=== PATIENT | male | born 1970 | race Caucasian/White ===

== ENCOUNTER 2021-05-18 17:40 | Day surgery (SDC) | payer MEDICAID, OTHER ==
[~2021-05-18] VITALS: Ht 172.7 cm; Wt 78.0 kg
--- NOTE | 2021-05-18 18:40 | ED GI ---
General Chief Complaint: Abdominal/GI Problems Stated Complaint: L SIDE PAIN Nursing Triage Note: AMB TO ROOM WITH C/O ABD PAIN R LOWER QUAD HAD HERNIA SURG 16 YEARS AGO IS HAVING PAIN AND AREA WARM TO TOUCH Source of Information: Patient Exam Limitations: No Limitations History of Present Illness Date Seen by Provider: May 18, 2021 Time Seen by Provider: 18:39 Initial Comments To ER with right lower abdominal discomfort and swelling for the past few days. History of inguinal hernia repair with mesh 16 years ago. He has been taking Tylenol and ibuprofen without much relief. Timing/Duration: 3-4 Days Severity/Quality: Moderate Location: RLQ Radiation: No Radiation Activities at Onset: None Associated Symptoms: Denies Symptoms Allergies and Home Medications Allergies Coded Allergies: No Known Drug Allergies (Unverified , 05/18/21) Patient Home Medication List Home Medication List Reviewed: Yes Review of Systems Review of Systems Constitutional: see HPI EENTM: No Symptoms Reported Respiratory: No Symptoms Reported Cardiovascular: No Symptoms Reported Gastrointestinal: See HPI, Abdominal Pain Musculoskeletal: no symptoms reported Skin: no symptoms reported Psychiatric/Neurological: No Symptoms Reported Endocrine: No Symptoms Reported Hematologic/Lymphatic: No Symptoms Reported Physical Exam Vital Signs Vital Signs - First Documented 05/18/21 18:06 Temp 37.4 Pulse 107 Resp 18 B/P (MAP) 136/100 (112) Pulse Ox 95 O2 Delivery Room Air Capillary Refill : Less Than 3 Seconds Height/Weight/BMI Height: '" Weight: lbs. oz. kg; 26.00 BMI Method: General Appearance: WD/WN, no apparent distress HEENT: PERRL/EOMI, normal ENT inspection Respiratory: no respiratory distress, no accessory muscle use Gastrointestinal: normal bowel sounds, soft, tenderness (There is a right inguinal bulge with tenderness to palpation. Bowel movements and passing gas as per his normal without nausea vomiting.) Extremities: normal range of motion, non-tender Neurologic/Psychiatric: alert, normal mood/affect, oriented x 3 Skin: normal color, warm/dry Progress/Results/Core Measures Results/Orders Lab Results Laboratory Tests Test 05/18/21 18:13 05/18/21 19:10 Range/Units White Blood Count 11.7 H 4.3-11.0 10^3/uL Red Blood Count 5.41 4.30-5.52 10^6/uL Hemoglobin 16.8 13.3-17.7 g/dL Hematocrit 51 40-54 % Mean Corpuscular Volume 95 80-99 fL Mean Corpuscular Hemoglobin 31 25-34 pg Mean Corpuscular Hemoglobin Concent 33 32-36 g/dL Red Cell Distribution Width 12.9 10.0-14.5 % Platelet Count 225 130-400 10^3/uL Mean Platelet Volume 11.1 9.0-12.2 fL Immature Granulocyte % (Auto) 0 % Neutrophils (%) (Auto) 74 42-75 % Lymphocytes (%) (Auto) 14 12-44 % Monocytes (%) (Auto) 11 0-12 % Eosinophils (%) (Auto) 1 0-10 % Basophils (%) (Auto) 0 0-10 % Neutrophils # (Auto) 8.7 H 1.8-7.8 10^3/uL Lymphocytes # (Auto) 1.6 1.0-4.0 10^3/uL Monocytes # (Auto) 1.3 H 0.0-1.0 10^3/uL Eosinophils # (Auto) 0.1 0.0-0.3 10^3/uL Basophils # (Auto) 0.0 0.0-0.1 10^3/uL Immature Granulocyte # (Auto) 0.0 0.0-0.1 10^3/uL Sodium Level 139 135-145 MMOL/L Potassium Level 4.1 3.6-5.0 MMOL/L Chloride Level 103 98-107 MMOL/L Carbon Dioxide Level 25 21-32 MMOL/L Anion Gap 11 5-14 MMOL/L Blood Urea Nitrogen 11 7-18 MG/DL Creatinine 0.99 0.60-1.30 MG/DL Estimat Glomerular Filtration Rate 81 BUN/Creatinine Ratio 11 Glucose Level 123 H 70-105 MG/DL Calcium Level 8.9 8.5-10.1 MG/DL Corrected Calcium 9.1 8.5-10.1 MG/DL Total Bilirubin 0.5 0.1-1.0 MG/DL Aspartate Amino Transf (AST/SGOT) 13 5-34 U/L Alanine Aminotransferase (ALT/SGPT) 17 0-55 U/L Alkaline Phosphatase 79 40-136 U/L Total Protein 6.9 6.4-8.2 GM/DL Albumin 3.7 3.2-4.5 GM/DL Urine Color YELLOW Urine Clarity SL CLOUDY Urine pH 6.5 5-9 Urine Specific [place] 1.025 H 1.016-1.022 Urine Protein NEGATIVE NEGATIVE Urine Glucose (UA) NEGATIVE NEGATIVE Urine Ketones NEGATIVE NEGATIVE Urine Nitrite NEGATIVE NEGATIVE Urine Bilirubin NEGATIVE NEGATIVE Urine Urobilinogen 4.0 < = 1.0 MG/DL Urine Leukocyte Esterase NEGATIVE NEGATIVE Urine RBC (Auto) NEGATIVE NEGATIVE Urine RBC NONE /HPF Urine WBC NONE /HPF Urine Squamous Epithelial Cells NONE /HPF Urine Renal Epithelial Cells NONE /HPF Urine Crystals NONE /LPF Urine Bacteria FEW H /HPF Urine Casts NONE /LPF Urine Mucus NEGATIVE /LPF Urine Culture Indicated NO My Orders Orders - SU DIALLO APRN Cbc With Automated Diff (05/18/21 18:37) Comprehensive Metabolic Panel (05/18/21 18:37) Ua Culture If Indicated (05/18/21 18:37) Ct Abdomen/Pelvis Wo (05/18/21 18:37) Lorazepam Injection (Ativan Injection) (05/18/21 20:30) Piperacillin Sodium/Tazobactam (Zosyn Vi (05/18/21 21:30) Medications Given in ED Current Medications Medications Dose Ordered Sig/Ezequiel Route Start Time Stop Time Status Last Admin Dose Admin Lorazepam 0.5 mg ONCE PRN IVP 05/18/21 20:30 05/18/21 20:29 0.5 MG Vital Signs/I&O 05/18/21 18:06 Temp 37.4 Pulse 107 Resp 18 B/P (MAP) 136/100 (112) Pulse Ox 95 O2 Delivery Room Air Blood Pressure Mean: 112 Departure Communication (Admissions) Family Conversation I spoke with Dr. Humphries, patient will go to the operating room tonight at about 10. NAME: ZOE [facility]ALL [facility] REC#: [id number] PT STATUS: REG ER : 1970 PHYSICIAN: SU DIALLO APRN ADMIT DATE: 05/18/21/ER Draft Date of Exam:05/18/21 CT ABDOMEN/PELVIS WO PROCEDURE: CT abdomen and pelvis without contrast. TECHNIQUE: Multiple contiguous axial images were obtained through the abdomen and pelvis without the use of intravenous contrast. Auto Exposure Controls were utilized during the CT exam to meet ALARA standards for radiation dose reduction. DATE: April 18, 2021. COMPARISON: None. INDICATION: 50-year-old male, right lower quadrant abdominal pain. History of hernia. FINDINGS: There are limitations for evaluation of the abdominal organs, neoplastic processes, abscess, and limited evaluation of the vasculature relating to the lack of intravenous contrast. There are mild linear opacities in the lingula likely reflecting atelectasis. The heart is not enlarged. There is no identified pericardial effusion. The liver is unremarkable in size and contour. The gallbladder is contracted. There is no biliary ductal dilation. The main pancreatic duct is not abnormally dilated. Unremarkable appearance of the pancreatic parenchyma. There are accessory splenules. The spleen is not enlarged. The adrenal glands are unremarkable. Unremarkable appearance of the renal parenchyma. The urinary collecting systems are not distended. There is no identified renal or ureteral stone. The intestinal tract is not distended. The appendix is well-seen and its proximal aspect on axial image 57 and adjacent sequential images. The appendix extends towards the right lower anterior abdominal wall. There is abnormal inflammatory stranding as well as a gas containing fluid collection at this location measuring 3.6 x 2.7 cm in axial dimension on axial image 63. This is contacting the right lateral rectus abdominis musculature. There is no free intraperitoneal air. There is no additional identified drainable fluid collection. There is stranding in the right inguinal region. There is no free pelvic fluid. There are atherosclerotic calcifications. There is no identified abnormally enlarged lymph node in the abdomen or pelvis meeting CT size criteria for adenopathy. There is no identified acute bony abnormality. IMPRESSION: CT ABDOMEN AND PELVIS. 1. Gas containing fluid collection which is centered near the tip of the appendix and right lateral rectus abdominis muscle measuring 3.6 x 2.7 cm in size most likely reflecting an abscess. The more proximal aspect of the appendix is normal in appearance; however, the appendix extends directly to this area of abnormality and acute appendicitis cannot be excluded. There is also abnormal stranding in the right inguinal region. 2. No additional identified acute abnormality in the abdomen or pelvis. Dictated on workstation # [id number] Dict: 05/18/211910 Trans: 05/18/211954 [facility] [id number] Interpreted by: GERI AGUIRRE MD Electronically signed by: Impression Primary Impression: Appendicitis Disposition: ADMITTED INPATIENT Condition: Stable Admissions Decision to Admit Reason: Admit from ER (General) Decision to Admit/Date: May 18, 2021 Time/Decision to Admit Time: 21:24 Departure-Patient Inst. Referrals: NO,LOCAL PHYSICIAN (PCP/Family) Primary Care Physician SU DIALLO APRN May 18, 2021 18:40
[2021-05-18 19:08] LABS: BASOPHILS % (AUTO) 0 % (0-10); EOSINOPHILS # (AUTO) 0.1 10^3/uL (0.0-0.3); EOSINOPHILS % (AUTO) 1 % (0-10); HEMATOCRIT 51 % (40-54); HEMOGLOBIN 16.8 g/dL (13.3-17.7); LYMPHOCYTES # (AUTO) 1.6 10^3/uL (1.0-4.0); LYMPHOCYTES % (AUTO) 14 % (12-44); MEAN CORPUSCULAR HEMOGLOBIN 31 pg (25-34); MEAN CORPUSCULAR HGB CONC 33 g/dL (32-36); MEAN CORPUSCULAR VOLUME 95 fL (80-99); MEAN PLATELET VOLUME 11.1 fL (9.0-12.2); MONOCYTES # (AUTO) 1.3 10^3/uL (0.0-1.0); MONOCYTES % (AUTO) 11 % (0-12); NEUTROPHILS # (AUTO) 8.7 10^3/uL (1.8-7.8); NEUTROPHILS % (AUTO) 74 % (42-75); PLATELET COUNT 225 10^3/uL (130-400); WHITE BLOOD COUNT 11.7 10^3/uL (4.3-11.0)
[2021-05-18 19:19] LABS: BILIRUBIN,URINE NEGATIVE (NEGATIVE); CLARITY,URINE SL CLOUDY; COLOR,URINE YELLOW; GLUCOSE, URINE (UA) NEGATIVE (NEGATIVE); KETONES,URINE NEGATIVE (NEGATIVE); LEUKOCYTE ESTERASE ,URINE NEGATIVE (NEGATIVE); NITRITE,URINE NEGATIVE (NEGATIVE); PH,URINE 6.5 (5-9); PROTEIN,URINE NEGATIVE (NEGATIVE)
[2021-05-18 19:22] LABS: ALBUMIN 3.7 GM/DL (3.2-4.5); POTASSIUM 4.1 MMOL/L (3.6-5.0)
[2021-05-18 19:23] LABS: CALCIUM 8.9 MG/DL (8.5-10.1)
[2021-05-18 19:25] LABS: TOTAL PROTEIN 6.9 GM/DL (6.4-8.2)
[2021-05-18 19:26] LABS: BILIRUBIN,TOTAL 0.5 MG/DL (0.1-1.0)
[2021-05-18 19:28] LABS: CREATININE SERUM 0.99 MG/DL (0.60-1.30)
[2021-05-18 19:30] LABS: BACTERIA,URINE FEW /HPF
--- NOTE | 2021-05-18 19:56 | Diagnostic Imaging Report ---
PROCEDURE: CT abdomen and pelvis without contrast. TECHNIQUE: Multiple contiguous axial images were obtained through the abdomen and pelvis without the use of intravenous contrast. Auto Exposure Controls were utilized during the CT exam to meet ALARA standards for radiation dose reduction. DATE: April 18, 2021. COMPARISON: None. INDICATION: 50-year-old male, right lower quadrant abdominal pain. History of hernia. FINDINGS: There are limitations for evaluation of the abdominal organs, neoplastic processes, abscess, and limited evaluation of the vasculature relating to the lack of intravenous contrast. There are mild linear opacities in the lingula likely reflecting atelectasis. The heart is not enlarged. There is no identified pericardial effusion. The liver is unremarkable in size and contour. The gallbladder is contracted. There is no biliary ductal dilation. The main pancreatic duct is not abnormally dilated. Unremarkable appearance of the pancreatic parenchyma. There are accessory splenules. The spleen is not enlarged. The adrenal glands are unremarkable. Unremarkable appearance of the renal parenchyma. The urinary collecting systems are not distended. There is no identified renal or ureteral stone. The intestinal tract is not distended. The appendix is well-seen and its proximal aspect on axial image 57 and adjacent sequential images. The appendix extends towards the right lower anterior abdominal wall. There is abnormal inflammatory stranding as well as a gas containing fluid collection at this location measuring 3.6 x 2.7 cm in axial dimension on axial image 63. This is contacting the right lateral rectus abdominis musculature. There is no free intraperitoneal air. There is no additional identified drainable fluid collection. There is stranding in the right inguinal region. There is no free pelvic fluid. There are atherosclerotic calcifications. There is no identified abnormally enlarged lymph node in the abdomen or pelvis meeting CT size criteria for adenopathy. There is no identified acute bony abnormality. IMPRESSION: CT ABDOMEN AND PELVIS. 1. Gas containing fluid collection which is centered near the tip of the appendix and right lateral rectus abdominis muscle measuring 3.6 x 2.7 cm in size most likely reflecting an abscess. The more proximal aspect of the appendix is normal in appearance; however, the appendix extends directly to this area of abnormality and acute appendicitis cannot be excluded. There is also abnormal stranding in the right inguinal region. 2. No additional identified acute abnormality in the abdomen or pelvis. Dictated by: Dictated on workstation # [id number]
[2021-05-18] MEDS ORDERED: LORazepam INJ 2 MG/ML (ATIVAN) VIAL IVP PRN (20:30)
[2021-05-18] MEDS ORDERED: PIPERACILLIN SODIUM/TAZOBACTAM 4.5 GM in NS (IVPB) 100 ML IV ONE (21:30)
[2021-05-18] MEDS ORDERED: LIDOCAINE/EPI 1%-1:100,000 (XYLOCAINE) 20ML ONE (21:46)
[2021-05-18] MEDS ORDERED: MIDAZOLAM 2 MG/2 ML (VERSED) VIAL ONE ×2 (21:49→23:58)
[2021-05-18] MEDS ORDERED: fentaNYL INJ 100 MCG/2 ML AMP ONE ×2 (21:49→23:19)
[2021-05-18] MEDS: LACTATED RINGERS 1,000 ML IV PRN ×2 (22:06→22:40)
--- NOTE | 2021-05-18 22:22 | History & Physical-Surgical ---
History of Present Illness History of Present Illness Reason for visit/HPI Surgery asked to consult regarding RLQ pain and appendicitis. HPI per ED: To ER with right lower abdominal discomfort and swelling for the past few days. History of inguinal hernia repair with mesh 16 years ago. He has been taking Tylenol and ibuprofen without much relief. Timing/Duration: 3-4 Days Severity/Quality: Moderate Location: RLQ Radiation: No Radiation Activities at Onset: None When I spoke to pt he stated that he may have had pain in the same area but "never this bad". Rated it as a 10 out of 10 when I saw, only helped by pain meds. He was in wheelchair and bumping it hurt in the RLQ. Denied N/V but did have some decreased appetite. Date of Admission 05/18/21 Date Seen by a Provider: May 18, 2021 Time Seen by a Provider: 10:01 I consulted on this patient on 05/18/21 22:16 Attending Physician Marcio Humphries DO Admitting Physician No,Local Physician Consult Allergies and Home Medications Allergies Coded Allergies: No Known Drug Allergies (Unverified , 05/18/21) Patient Home Medication List Home Medication List Reviewed: Yes Past Oogoxic-Jyebjd-Dhimlq Hx Patient Social History Smoking Status: Current Everyday Smoker (smoked for 30 yrs) Cigarettes Per Day: 20 Type Used: Cigarettes Alcohol Use?: Yes Have you traveled recently?: No Surgeries History of Surgeries: Yes Surgeries: Abdominal (right inguinal hernia) Respiratory History of Respiratory Disorde: No Cardiovascular History of Cardiac Disorders: No Neurological History of Neurological Disord: No Genitourinary History of Genitourinary Disor: No Gastrointestinal Gastrointestinal Disorders: Gastroesophageal Reflux Musculoskeletal History of Musculoskeletal Dis: No Endocrine History of Endocrine Disorders: No HEENT History of HEENT Disorders: No Loss of Vision: Denies Hearing Impairment: Denies Cancer History of Cancer: No Psychosocial History of Psychiatric Problem: No Integumentary History of Skin or Integumenta: No Family Medical History Significant Family History: Heart Disease (Father of [place] at 50), Stroke (mother at 50) Review of Systems Constitutional: No diaphoresis, No dizziness; malaise, weakness EENTM: No blurred vision, No double vision, No mouth pain, No epistaxis Respiratory: No cough, No dyspnea on exertion, No hemoptysis Cardiovascular: No chest pain, No palpitations Gastrointestinal: abdominal pain (RLQ), loss of appetite; No nausea, No vomiting Genitourinary: No dysuria, No frequency, No hematuria Musculoskeletal: joint pain, joint swelling, muscle stiffness Skin: No change in color, No change in hair/nails Psychiatric/Neurological: Denies Anxiety, Denies Depressed, Denies Seizure, Denies Tremors Physical Exam Vital Signs Vital Signs - First Documented 05/18/21 18:06 Temp 37.4 Pulse 107 Resp 18 B/P (MAP) 136/100 (112) Pulse Ox 95 O2 Delivery Room Air Capillary Refill : Less Than 3 Seconds Height, Weight, BMI Height: '" Weight: lbs. oz. kg; 26.00 BMI Method: General Appearance: WD/WN, Mild Distress Eyes: Bilateral Eye PERRL, Bilateral Eye EOMI HEENT: Pharynx Normal, Moist Mucous Membranes, Other (poor dentition) Neck: Non Tender, Supple Respiratory: Lungs Clear, Normal Breath Sounds, No Accessory Muscle Use, No Respiratory Distress Cardiovascular: Regular Rate, Rhythm, No Murmur Gastrointestinal: Soft, Guarding, Tenderness Rectal: Deferred Back: No CVA Tenderness, No Vertebral Tenderness Extremity: No Calf Tenderness, No Pedal Edema Neurologic/Psychiatric: Alert, Oriented x3, No Motor/Sensory Deficits, Normal Mood/Affect, histologist II-XII Norm as Tested Skin: Normal Color, Warm/Dry Lymphatic: No Adenopathy (neck, axilla or groin) Data Review Labs Laboratory Tests 05/18/21 18:13: White Blood Count 11.7H, Red Blood Count 5.41, Hemoglobin 16.8, Hematocrit 51, Mean Corpuscular Volume 95, Mean Corpuscular Hemoglobin 31, Mean Corpuscular Hemoglobin Concent 33, Red Cell Distribution Width 12.9, Platelet Count 225, Mean Platelet Volume 11.1, Immature Granulocyte % (Auto) 0, Neutrophils (%) (Auto) 74, Lymphocytes (%) (Auto) 14, Monocytes (%) (Auto) 11, Eosinophils (%) (Auto) 1, Basophils (%) (Auto) 0, Neutrophils # (Auto) 8.7H, Lymphocytes # (Auto) 1.6, Monocytes # (Auto) 1.3H, Eosinophils # (Auto) 0.1, Basophils # (Auto) 0.0, Immature Granulocyte # (Auto) 0.0, Sodium Level 139, Potassium Level 4.1, Chloride Level 103, Carbon Dioxide Level 25, Anion Gap 11, Blood Urea Nitrogen 11, Creatinine 0.99, Estimat Glomerular Filtration Rate 81, BUN/Creatinine Ratio 11, Glucose Level 123H, Calcium Level 8.9, Corrected Calcium 9.1, Total Bilirubin 0.5, Aspartate Amino Transf (AST/SGOT) 13, Alanine Aminotransferase (ALT/SGPT) 17, Alkaline Phosphatase 79, Total Protein 6.9, Albumin 3.7 05/18/21 19:10: Urine Color YELLOW, Urine Clarity SL CLOUDY, Urine pH 6.5, Urine Specific [place] 1.025H, Urine Protein NEGATIVE, Urine Glucose (UA) NEGATIVE, Urine Ketones NEGATIVE, Urine Nitrite NEGATIVE, Urine Bilirubin NEGATIVE, Urine Urobilinogen 4.0, Urine Leukocyte Esterase NEGATIVE, Urine RBC (Auto) NEGATIVE, Urine RBC NONE, Urine WBC NONE, Urine Squamous Epithelial Cells NONE, Urine Renal Epithelial Cells NONE, Urine Crystals NONE, Urine Bacteria FEWH, Urine Casts NONE, Urine Mucus NEGATIVE, Urine Culture Indicated NO Radiology Date of Exam:05/18/21 CT ABDOMEN/PELVIS WO PROCEDURE: CT abdomen and pelvis without contrast. TECHNIQUE: Multiple contiguous axial images were obtained through the abdomen and pelvis without the use of intravenous contrast. Auto Exposure Controls were utilized during the CT exam to meet ALARA standards for radiation dose reduction. DATE: April 18, 2021. COMPARISON: None. INDICATION: 50-year-old male, right lower quadrant abdominal pain. History of hernia. FINDINGS: There are limitations for evaluation of the abdominal organs, neoplastic processes, abscess, and limited evaluation of the vasculature relating to the lack of intravenous contrast. There are mild linear opacities in the lingula likely reflecting atelectasis. The heart is not enlarged. There is no identified pericardial effusion. The liver is unremarkable in size and contour. The gallbladder is contracted. There is no biliary ductal dilation. The main pancreatic duct is not abnormally dilated. Unremarkable appearance of the pancreatic parenchyma. There are accessory splenules. The spleen is not enlarged. The adrenal glands are unremarkable. Unremarkable appearance of the renal parenchyma. The urinary collecting systems are not distended. There is no identified renal or ureteral stone. The intestinal tract is not distended. The appendix is well-seen and its proximal aspect on axial image 57 and adjacent sequential images. The appendix extends towards the right lower anterior abdominal wall. There is abnormal inflammatory stranding as well as a gas containing fluid collection at this location measuring 3.6 x 2.7 cm in axial dimension on axial image 63. This is contacting the right lateral rectus abdominis musculature. There is no free intraperitoneal air. There is no additional identified drainable fluid collection. There is stranding in the right inguinal region. There is no free pelvic fluid. There are atherosclerotic calcifications. There is no identified abnormally enlarged lymph node in the abdomen or pelvis meeting CT size criteria for adenopathy. There is no identified acute bony abnormality. IMPRESSION: CT ABDOMEN AND PELVIS. 1. Gas containing fluid collection which is centered near the tip of the appendix and right lateral rectus abdominis muscle measuring 3.6 x 2.7 cm in size most likely reflecting an abscess. The more proximal aspect of the appendix is normal in appearance; however, the appendix extends directly to this area of abnormality and acute appendicitis cannot be excluded. There is also abnormal stranding in the right inguinal region. 2. No additional identified acute abnormality in the abdomen or pelvis. Dictated by: Dictated on workstation # [id number] Dict: 05/18/211910 Trans: 05/18/212138 Assessment/Plan Assessment/Plan Admission Diagonsis RLQ pain with abscess, most likely appendicitis Admission Status: Observation Assessment/Plan RLQ pain with abscess, most likely appendicitis Pt is getting IV ABX, IV fluids, pain meds, anti-emetics as needed and needs to go emergently to the OR. Most likely for a laparoscopic appendectomy; discussed risks and complication not limited to pain, bleeding, infection, scar, damage to bowel and need for further procedure. I also told him he may need a drain placed and left in, to be removed later. I reviewed the CT myself and my other concern is this could be a mesh infection that just happens to include the appendix; it appears that bowel is not involved, but won't know until we get in and look. All questions answered to his satisfaction; if everything goes well he can go home tomorrow, just depends on what we find. MARCIO HUMPHRIES DO May 18, 2021 22:22
[2021-05-18] MEDS ORDERED: morphine INJ 10 MG/ML 1ML (SYR OR VIAL) ONE (22:54)
[2021-05-18] MEDS ORDERED: ROCURONIUM 10 MG/ML 5 ML SYRINGE IV ONE (22:55)
[2021-05-18] MEDS ORDERED: SUCCINYLCHOLINE INJ 100 MG/5 ML SYR/VIAL ONE (22:55)
[2021-05-18] MEDS ORDERED: SEVOFLURANE (ULTANE) 15 ML INHAL SOLN ONE ×2 (22:55→23:35)
[2021-05-18] MEDS ORDERED: GLYCOPYRROLATE 0.2 MG/ML (ROBINUL) 2 ML VIAL ONE (22:55)
[2021-05-18] MEDS ORDERED: LIDOCAINE PF 2% 5 ML (XYLOCAINE) VIAL ONE (22:55)
[2021-05-18] MEDS ORDERED: proPOfol 200 MG/20 ML (DIPRIVAN) VIAL IV ONE (22:55)
[2021-05-18] MEDS ORDERED: NEOSTIGMINE 3 MG/3 ML VIAL ONE (22:55)
[2021-05-18] MEDS ORDERED: ONDANSETRON 4 MG/2 ML (SDV) Z0FRAN ONE (22:55)
[2021-05-18] MEDS ORDERED: morphine INJ 10 MG/ML 1ML (SYR OR VIAL) IVP STA (23:33)
[2021-05-18 23:34] VITALS: BP 122/95
--- NOTE | 2021-05-18 23:38 | Progress Note-Post Operative ---
Post-Operative Progess Note Surgeon (s)/Raise Drill Operator (s) Surgeon ANDREA RODRIGUEZ DO Raise Drill Operator: none Pre-Operative Diagnosis RLQ pain with abscess, R/O appy Post-Operative Diagnosis Acute appy Infected mesh with indirect inguinal hernia Procedure & Operative Findings Date of Procedure 05/18/21 Procedure Performed/Findings 1) Lap Appy 2) Removal of infected mesh Anesthesia Type GET Estimated Blood Loss Estimated blood loss (mL): less than 5ml Specimens/Packing Specimens Removed appy,portion of mesh ANDREA RODRIGUEZ DO May 18, 2021 23:38
[2021-05-18] MEDS ORDERED: HYDROcodone/APAP 5 MG/325 MG (LORTAB) TAB PO PRN (23:45)
[2021-05-18] MEDS ORDERED: ONDANSETRON 4 MG/2 ML (SDV) Z0FRAN IVP PRN (23:45)
[2021-05-18 23:50] VITALS: BP 173/108
[2021-05-18 23:56] VITALS: BP 148/85
[2021-05-19] VITALS (11 sets, daily range): BP systolic 100–146; BP diastolic 71–88
[2021-05-19] MEDS: LACTATED RINGERS 1,000 ML IV PRN (00:10)
[2021-05-19] MEDS ORDERED: fentaNYL INJ 100 MCG/2 ML AMP IVP ONE (00:30)
[2021-05-19] MEDS ORDERED: ONDANSETRON 4 MG/2 ML (SDV) Z0FRAN IVP PRN (00:30)
[2021-05-19] MEDS ORDERED: morphine INJ 10 MG/ML 1ML (SYR OR VIAL) IVP ONE (00:30)
[2021-05-19 00:43] LABS: AMPHETAMINE SCREEN, URINE NEGATIVE (NEGATIVE); BARBITURATE SCREEN URINE NEGATIVE (NEGATIVE); BENZODIAZEPINES SCREEN URINE NEGATIVE (NEGATIVE); CANNABINOID SCREEN, URINE NEGATIVE (NEGATIVE); COCAINE SCREEN URINE NEGATIVE (NEGATIVE); METHADONE STAT NEGATIVE (NEGATIVE); METHAMPHETAMINE SCREEN URINE S NEGATIVE (NEGATIVE); OPIATE SCREEN URINE NEGATIVE (NEGATIVE); OXYCODONE STAT NEGATIVE (NEGATIVE); PROPOXYPHENE STAT NEGATIVE (NEGATIVE); TRICYCLIC ANTIDEPRESSANTS SCRE NEGATIVE (NEGATIVE)
[2021-05-19] MEDS: LACTATED RINGERS 1,000 ML IV SCH ×2 (00:48→08:45)
[2021-05-19] MEDS ORDERED: HALOPERIDOL 5 MG/ML (HALDOL) VIAL IM/IV PRN (01:00)
[2021-05-19] MEDS ORDERED: LORazepam INJ 2 MG/ML (ATIVAN) VIAL IVP PRN (01:00)
[2021-05-19] MEDS ORDERED: diphenhydrAMINE 50 MG/ML INJ (BENADRYL) IVP PRN (01:00)
[2021-05-19] MEDS ORDERED: fentaNYL INJ 100 MCG/2 ML AMP ONE (01:42)
[2021-05-19] MEDS ORDERED: fentaNYL INJ 100 MCG/2 ML AMP IVP PRN (02:00)
--- NOTE | 2021-05-19 04:15 | Anesthesia-General Post-Op ---
General Patient Condition Mental Status/LOC: Same as Preop Cardiovascular: Satisfactory Nausea/Vomiting: Absent Respiratory: Satisfactory Pain: Controlled Complications: Absent Post Op Complications Complications None Follow Up Care/Instructions Patient Instructions None needed. Anesthesia/Patient Condition Patient Condition Patient is doing well, no complaints, stable vital signs, no apparent adverse anesthesia problems. No complications reported per nursing. TY CASTRO CRNA May 19, 2021 04:15
[2021-05-19] MEDS ORDERED: PIPERACILLIN/TAZOBACTAM (BULK) 4.5 GM in NS (IVPB) 100 ML IV SCH (06:00)
[2021-05-19] MEDS ORDERED: PANTOPRAZOLE 40 MG (PROTONIX) VIAL IVP SCH (09:00)
--- NOTE | 2021-05-19 12:52 | Progress Note - Surgery ---
Subjective Time Seen by a Provider: 11:31 Subjective/Events-last exam Pt seen and examined, states pain controlled and asking to go home. Review of Systems Pulmonary: No Dyspnea, No Cough Cardiovascular: No: Chest Pain, Palpitations Gastrointestinal: Abdominal Pain; No: Nausea, Vomiting Objective Exam Vital Signs Date Time Temp Pulse Resp B/P (MAP) Pulse Ox O2 Delivery O2 Flow Rate FiO2 05/19/21 12:33 36.8 94 17 127/85 (99) 95 Nasal Cannula 6.00 05/19/21 09:00 95 Nasal Cannula 6.00 05/19/21 08:00 92 18 104/72 (83) 92 Nasal Cannula 6.00 05/19/21 04:00 37.3 114 18 100/71 (81) 90 OxyMask 6.00 05/19/21 02:00 112 18 116/81 (93) 93 OxyMask 6.00 05/19/21 01:17 94 OxyMask 6.00 05/19/21 01:00 122 19 105/80 (88) 94 OxyMask 6.00 05/19/21 00:40 36.9 122 21 110/77 (88) 93 OxyMask 6.00 05/19/21 00:40 36.9 20 110/77 (88) 93 OxyMask 6 05/19/21 00:40 OxyMask 6 05/19/21 00:30 22 112/75 (87) 93 OxyMask 6 05/19/21 00:25 OxyMask 6 05/19/21 00:20 22 119/79 (92) 93 OxyMask 6 05/19/21 00:10 OxyMask 8 05/19/21 00:10 22 146/88 (107) 93 OxyMask 8 05/19/21 00:00 22 136/84 (101) 93 OxyMask 8 05/18/21 23:56 22 148/85 (106) 94 OxyMask 8 05/18/21 23:55 OxyMask 8 05/18/21 23:50 22 173/108 (129) 94 OxyMask 8 05/18/21 23:34 OxyMask 6 05/18/21 23:34 36.8 18 122/95 (104) 94 OxyMask 8 05/18/21 21:55 36.9 109 18 113/84 (112) 96 Room Air 05/18/21 18:06 37.4 107 18 136/100 (112) 95 Room Air I & O 05/19/21 07:00 Intake Total 2100 ml Output Total 175 ml Balance 1925 ml Capillary Refill : Less Than 3 Seconds General Appearance: No Apparent Distress, WD/WN HEENT: Pharynx Normal, Moist Mucous Membranes, Other (poor dentition) Respiratory: Lungs Clear, Normal Breath Sounds, No Accessory Muscle Use, No Respiratory Distress Cardiovascular: Regular Rate, Rhythm, No Murmur Gastrointestinal: normal bowel sounds, soft, tenderness (There is a right inguinal bulge with tenderness to palpation. Bowel movements and passing gas as per his normal without nausea vomiting.) Results Lab Laboratory Tests 05/18/21 18:13: White Blood Count 11.7H, Red Blood Count 5.41, Hemoglobin 16.8, Hematocrit 51, Mean Corpuscular Volume 95, Mean Corpuscular Hemoglobin 31, Mean Corpuscular Hemoglobin Concent 33, Red Cell Distribution Width 12.9, Platelet Count 225, Mean Platelet Volume 11.1, Immature Granulocyte % (Auto) 0, Neutrophils (%) (Auto) 74, Lymphocytes (%) (Auto) 14, Monocytes (%) (Auto) 11, Eosinophils (%) (Auto) 1, Basophils (%) (Auto) 0, Neutrophils # (Auto) 8.7H, Lymphocytes # (Auto) 1.6, Monocytes # (Auto) 1.3H, Eosinophils # (Auto) 0.1, Basophils # (Auto) 0.0, Immature Granulocyte # (Auto) 0.0, Sodium Level 139, Potassium Level 4.1, Chloride Level 103, Carbon Dioxide Level 25, Anion Gap 11, Blood Urea Nitrogen 11, Creatinine 0.99, Estimat Glomerular Filtration Rate 81, BUN/Creatinine Ratio 11, Glucose Level 123H, Calcium Level 8.9, Corrected Calcium 9.1, Total Bilirubin 0.5, Aspartate Amino Transf (AST/SGOT) 13, Alanine Aminotransferase (ALT/SGPT) 17, Alkaline Phosphatase 79, Total Protein 6.9, Albumin 3.7 05/18/21 19:10: Urine Color YELLOW, Urine Clarity SL CLOUDY, Urine pH 6.5, Urine Specific [place] 1.025H, Urine Protein NEGATIVE, Urine Glucose (UA) NEGATIVE, Urine Ketones NEGATIVE, Urine Nitrite NEGATIVE, Urine Bilirubin NEGATIVE, Urine Urobilinogen 4.0, Urine Leukocyte Esterase NEGATIVE, Urine RBC (Auto) NEGATIVE, Urine RBC NONE, Urine WBC NONE, Urine Squamous Epithelial Cells NONE, Urine Renal Epithelial Cells NONE, Urine Crystals NONE, Urine Bacteria FEWH, Urine Casts NONE, Urine Mucus NEGATIVE, Urine Culture Indicated NO, Urine Opiates Screen NEGATIVE, Urine Oxycodone Screen NEGATIVE, Urine Methadone Screen NEGATIVE, Urine Propoxyphene Screen NEGATIVE, Urine Barbiturates Screen NEGATIVE, Ur Tricyclic Antidepressants Screen NEGATIVE, Urine Phencyclidine Screen NEGATIVE, Urine Amphetamines Screen NEGATIVE, Urine Methamphetamines Screen NEGATIVE, Urine Benzodiazepines Screen NEGATIVE, Urine Cocaine Screen NEGATIVE, Urine Cannabinoids Screen NEGATIVE Assessment/Plan Assessment/Plan Assessment/Plan S/P Lap appy and removal of infected mesh D/C IV and D/C home ANDREA RODRIGUEZ DO May 19, 2021 12:52
[2021-05-19] MEDS ORDERED: ACHD5005 PO (12:55)
--- NOTE | 2021-05-19 12:56 | Discharge Inst-Surgical ---
Discharge Inst-Surgical Depart Medication/Instructions New, Converted or Re-Newed RX: Transmitted to Pharmacy Patient Instructions Follow up Appt: Make appointment for 1 week. [phone] Instructions: No lifting greater than 20 pounds. No strenuous activity. May shower in 24 hours, no tub bath or soaking. Use incentive spirometer at home as directed. No Smoking Skin/Wound Care: May remove bandages in am. You need to leave the Dermabond on incision it will fall off on it's own. Symptoms to Report: Appetite Changes, Extremity Discoloration, Numbness/Tingling, Swelling Increased, Bleeding Excessive, Eyesight Changes, Pain Increased, Urine Color Change, Constipation(Persistent), Fever over 101 degree F, Pain/Pressure in chest, Urinating Difficulty, Cough Up/Vomit Blood, Heart Beat Irreg/Pounding, Pain/Pressure in jaw, Cramps in feet or legs, Lightheadedness, Pain/Pressure in shoulder, Diarrhea(Persistent), Memory Changes Suddenly, Questions/Concerns, Weight gain consecutive days, Dizziness/Fainting, Nausea/Vomiting, Shortness of Breath, Weight gain over 2 pounds If questions or concerns contact your physician Or seek help at emergency department. Activity Activity as Tolerated: Yes Activity Instructions: Avoid Stress to Incision Driving Instructions: No Driving/Refer to Dr. Castro Discharge Diet: No Restrictions Diet After 24 Hours: Clear Liquid if Nauseous If Any Problems/Questions/Issu: Contact Your Physician, Go to Emergency Room Skin/Wound Care Infection Signs and Symptoms: Increased Redness, Foul Odor of Wound, Increased Drainage, Skin Itchy or Has a Rash, Increased Swelling, Temperature Above 101 F Bathing Instructions: Shower Stitches/[place]/Dermabond Dis: ANDREA Hart DO May 19, 2021 12:56
--- NOTE | 2021-05-19 15:07 | OPERATIVE REPORT ---
DATE OF SERVICE: 05/18/2021 PREOPERATIVE DIAGNOSIS: Right lower quadrant pain with abscess, rule out appendicitis. POSTOPERATIVE DIAGNOSES: 1. Acute appendicitis. 2. Infected mesh with indirect inguinal hernia. PROCEDURES: 1. Laparoscopic appendectomy. 2. Removal of infected mesh. SURGEON: Marcio Humphries DO BAKING ASSISTANT: None. ANESTHESIA: General endotracheal tube. SPECIMEN: Appendix and portion of the infected mesh. BLOOD LOSS: Less than 5 mL. FLUIDS: Per anesthesia. POSTOPERATIVE CONDITION: Stable. INDICATION FOR PROCEDURE: The patient is a 50-year-old male who has pain in the right lower quadrant. He has been having pain off and on for years, thought it was just his hernia. This time, the pain got worse than it has ever been and he had bulging and tenderness and warmth in the right lower quadrant. CAT scan showed abscess touching the rectus muscle, appeared to be appendix in communication with the abscess. FINDINGS: The patient had appendix stuck up and an indirect inguinal hernia and there was some infected mesh, may have been from appendicitis, could not really tell. PROCEDURE NOTE: After informed consent was obtained, the patient was brought to the operating room, placed on the operating table in supine position. He was sterilely prepped and draped in normal fashion. Local lidocaine was used to infiltrate the skin above the umbilicus and made an incision with 11 blade, carried down through the skin and subcutaneous tissue, then deepened down to subcutaneous tissue with Bovie electrocautery down to the fascia. Fascia was incised with Bovie electrocautery and bluntly entered the abdomen, swept a finger around, placed 0 Vicryl [id number] suture, then placed a limited trocar port under direct visualization. Created pneumoperitoneum and then placed 2 more ports, one in the suprapubic area and one in the left lower quadrant. The patient was then placed in Trendelenburg and rotated slightly left. There was a bulge in the right inguinal region and able to identify appendix going into an indirect inguinal hernia, started trying to take this bulging area down, coming across above the inguinal canal in the preperitoneal tissue, coming through this and then I am able to get into and got a little bit of purulent fluid out, this was suctioned up, came across and I then went down back to the appendix and it was away from the terminal ileum and started coming across the mesoappendix with the LigaSure, clamping, coagulating and transecting and in this fashion, freeing up the appendix. It was just attached to the cecum, then switched camera to a 5 mm camera, placed Endo-JOSE RAFAEL through the supraumbilical port and clamped across the base of appendix, clamped and fired, thereby transecting the appendix. Then, used L-hook cautery as well as the LigaSure to start freeing up going through this indirect inguinal hernia through the inguinal canal, opening up above it to go through the mesh to be able to take this mesh out and be able to remove the appendix. Once we were able to get through some of this mesh, able to get to the distal portion of the appendix and then removed this, removed another portion of the mesh, could see the indirect inguinal hernia. Copiously irrigated here with a liter and a half of warm normal saline. There was no more purulent fluid. There was some mesh leftover, suctioned out all the fluid and then placed a bag into the abdomen, placed the appendix, portion of the mesh and some fat into the bag and then removed through supraumbilical port. Elected to place a Surgicel to kind of cover the mesh down in the right lower quadrant, suctioned out all the fluid and then placed the patient supine and watched the cecum come down to cover this area. There was no bleeding at the end of the case. There was no purulent fluid. I had copiously irrigated until there was clear and elected to not leave a drain and then at this point, I removed all ports under direct visualization, allowed pneumoperitoneum to escape, closed supraumbilical incision with 0 Vicryl suture previously placed. Copiously irrigated all incisions with normal saline and closed the 2 small 5 mm incisions with a single interrupted 4-0 undyed Monocryl subcuticular stitch, closed supraumbilical incision with 3 interrupted 4-0 undyed Monocryl subcuticular stitches. Area was cleaned and dried and Dermabond placed as well as Band-Aids. The patient tolerated the procedure. Sponge, instrument and needle count correct at the end of the case. Job ID: [id number] DocumentID: [id number] Dictated Date: 05/18/2021 23:43:52 Eyeglass Lens Cutter Date: 05/19/2021 05:38:44 Dictated By: MARCIO HUMPHRIES DO
[2021-05-19] MEDS ORDERED: ENOXAPARIN 40 MG/0.4 ML (LOVENOX) SYR SC SCH (21:00)
== END 2021-05-19 14:25 | disposition home or self-care (01) ==
LOC: ER 17:43 → SDC 21:24 → CSD 05-19 00:40 → SDC 05-19 14:25
PROVIDERS: ATTEND Surgery
DX: K35.80 Unspecified acute appendicitis (principal); T85.79XA Infection and inflammatory reaction due to other internal prosthetic devices, implants and grafts, initial encounter; K40.90 Unilateral inguinal hernia, without obstruction or gangrene, not specified as recurrent; K21.9 Gastro-esophageal reflux disease without esophagitis; F17.210 Nicotine dependence, cigarettes, uncomplicated
CPT/HCPCS: 36415; 74176; 80053; 80306; 81000; 85025; 88304; 94664; 96365; 96375

== ENCOUNTER 2021-05-24 18:51 | Emergency (ER) | payer MEDICAID ==
[~2021-05-24 18:51] MED LIST: ACHD5005 PO
[2021-05-26] MEDS ORDERED: AMOX-358 PO (15:01)
== END 2021-05-24 20:52 | disposition other institution (70) ==
LOC: EDUNIT# 18:51 → ER 18:55
DX: R13.10 Dysphagia, unspecified (principal); R53.1 Weakness; R53.83 Other fatigue; R19.7 Diarrhea, unspecified
CPT/HCPCS: 87636

== ENCOUNTER 2021-05-25 10:51 | Inpatient (IN) | payer MEDICAID ==
[~2021-05-25] VITALS: Ht 167.6 cm; Wt 71.0 kg
[~2021-05-25 10:51] MED LIST changes: -ACET-2267 PO; -AMOX-358 PO
[2021-05-25 12:39] VITALS: BP 139/58
[2021-05-25 15:25] VITALS: BP 129/66
[2021-05-25 15:30] VITALS: BP 110/78
[2021-05-25] MEDS ORDERED: IOHEXOL 350 MG/ML 100 ML (OMNIPAQUE 350) VIAL IV ONE (15:45)
[2021-05-25] MEDS ORDERED: morphine INJ 4 MG/ML 1 ML (VIAL/SYRINGE) IVP PRN (15:45)
[2021-05-25] MEDS ORDERED: NS 100 ML (IVPB) BAG IV ONE (15:45)
[2021-05-25] MEDS ORDERED: CATHETER FLUSH 10 ML SYR IV PRN (15:45)
[2021-05-25] MEDS ORDERED: ONDANSETRON 4 MG/2 ML (SDV) Z0FRAN IVP PRN (15:45)
[2021-05-25] MEDS ORDERED: HOLD METFORMIN - RECEIVED CONTRAST 20 ML VIAL IV SCH (15:45)
--- NOTE | 2021-05-25 16:03 | Consultation - Surgery ---
JESSICAZOE HAZEL 05/25/21 1603: History of Present Illness History of Present Illness Patient Consulted On(raegan/time) 05/25/21 16:23 Date Seen by Provider: May 25, 2021 Time Seen by Provider: 16:23 History of Present Illness Zoe is a 50 yo m that presents with lower abdominal pain and GI distress following an appy last Tuesday. He localizes pain to the RLQ and describes pain as constant 6/10. He also complains of no appetite, nausea vomiting, diarrhea and foul smelling urine as well as pain with urination. He does not take any pain medication, and does not like the sideffects of analgesics. He also notes that he quit smoking last Tuesday, and has a newly acquired aversion to smoking as well as hyperosmia. He is currently resting in bed c [facility]. Allergies and Home Medications Allergies Coded Allergies: No Known Drug Allergies (Unverified , 05/18/21) Home Medications Acetaminophen 500 Mg Tablet, 1,000 MG PO Q8H PRN for PAIN-MILD (1-4), (Reported) Last Action: Reviewed Amoxicillin/Potassium Clav 1 Each Tablet, 1 EACH PO BID Prescribed by: ANDREA RODRIGUEZ on 05/26/21 1501 Hydrocodone/Acetaminophen 1 Each Tablet, 1 MG PO Q8H PRN for PAIN-MODERATE (5- 7), (Reported) Last Action: Reviewed Past Mwzkvyq-Ttmjfd-Kuricz Hx Patient Social History Smoking Status: Former Smoker (aversion to smoking since appy) Cigarettes Per Day: 1 Former Smoker, Quit: May 18, 2021 Type Used: Cigarettes Recent Hopitalizations: Yes (hernia 16yrs ago, knee replacement 28yrs ago) Alcohol Use?: Yes Substance type: Caffeine (2L Dr. Rapp per day) Have you traveled recently?: No Immunizations Up To Date Tetanus Booster (TDap): Unknown Seasonal Allergies Seasonal Allergies: No Surgeries History of Surgeries: Yes Surgeries: Abdominal, Appendectomy (may 18 2021), Joint Replacement (both knees 28 yrs ago) Respiratory History of Respiratory Disorde: No Cardiovascular History of Cardiac Disorders: No Neurological History of Neurological Disord: No Genitourinary History of Genitourinary Disor: No Genitourinary Disorders: Kidney Stones (3x all passed without intervention) Gastrointestinal Gastrointestinal Disorders: Gastroesophageal Reflux (managed with petpto bismol) Musculoskeletal History of Musculoskeletal Dis: No Endocrine History of Endocrine Disorders: No HEENT History of HEENT Disorders: No Loss of Vision: Denies Hearing Impairment: Denies Cancer History of Cancer: Yes Cancer: Thyroid (right side thyroidectomy about 5yrs old) Psychosocial History of Psychiatric Problem: No Behavioral Health Disorders: Anxiety Integumentary History of Skin or Integumenta: No Family Medical History Significant Family History: Heart Disease (Dad [place] at 50), Cancer (Grandmother, gastric cancer), Diabetes (Grandmother), Stroke (Mom at 50) Review of Systems-General Constitutional: chills, fever, weight loss (10lbs loss since appy on Tuesday) Respiratory: cough, phlegm Gastrointestinal: RLQ, abdominal pain (RLQ), diarrhea, loss of appetite, nausea, vomiting Genitourinary: decreased output, dysuria, pain Psychiatric/Neurological: Anxiety, Other (Hyperosmia since quit smoking last week) Physical Exam-General Problems Physical Exam Vital Signs Vital Signs - First Documented 05/25/21 12:39 Temp 35.7 Pulse 117 Resp 20 B/P (MAP) 139/58 (85) Pulse Ox 96 O2 Delivery Room Air Capillary Refill : General Appearance: no apparent distress Eyes: Bilateral Eye PERRL, Bilateral Eye EOMI HEENT: PERRL/EOMI, pharynx normal; No scleral icterus (R), No scleral icterus (L), No photophobia, No pharyngeal erythema Neck: non-tender, full range of motion, supple; No lymphadenopathy (R), No lymphadenopathy (L) Respiratory: chest non-tender, lungs clear, normal breath sounds, no respirat ory distress Cardiovascular: regular rate, rhythm, no gallop, no JVD, no murmur; No JVD Peripheral Pulses: 2+ Radial Pulses (R), 2+ Radial Pulses (L) Gastrointestinal: normal bowel sounds; No abnormal bowel sounds, No distended; guarding, tenderness Rectal: deferred Back: no CVA tenderness; No CVA tenderness (R), No CVA tenderness (L) Extremities: no pedal edema, no calf tenderness Neurologic/Psychiatric: family day care provider II-XII nml as tested, alert, normal mood/affect, oriented x 3 Skin: normal color, warm/dry Lymphatic: no adenopathy Assessment/Plan Assessment/Plan Assessment/Plan Lower abdominal pain and dysuria Plan - U/A, CXR, CBC, CT ANDREA RODRIGUEZ DO 05/26/21 1538: History of Present Illness History of Present Illness Time Seen by Provider: 15:41 History of Present Illness Pt had appendectomy about one week ago, was doing ok and then started "not feeling right". He thinks he may have had a temp at home and has felt weak off and on. Allergies and Home Medications Allergies Coded Allergies: No Known Drug Allergies (Unverified , 05/18/21) Home Medications Acetaminophen 500 Mg Tablet, 1,000 MG PO Q8H PRN for PAIN-MILD (1-4), (Reported) Last Action: Reviewed Amoxicillin/Potassium Clav 1 Each Tablet, 1 EACH PO BID Prescribed by: ANDREA RODRIGUEZ on 05/26/21 1501 Hydrocodone/Acetaminophen 1 Each Tablet, 1 MG PO Q8H PRN for PAIN-MODERATE (5- 7), (Reported) Last Action: Reviewed Patient Home Medication List Home Medication List Reviewed: Yes Past [place]-Knlmhx-Uceqgk Hx Patient Social History Smoking Status: Former Smoker (aversion to smoking since appy) Recent Hopitalizations: Yes (hernia 16yrs ago, knee replacement 28yrs ago) Surgeries History of Surgeries: Yes Surgeries: Abdominal, Appendectomy (may 18 2021), Joint Replacement (both knees 28 yrs ago) Respiratory History of Respiratory Disorde: No Cardiovascular History of Cardiac Disorders: No Neurological History of Neurological Disord: No Genitourinary History of Genitourinary Disor: Yes Genitourinary Disorders: Kidney Stones (3x all passed without intervention) Gastrointestinal History of Gastrointestinal Di: Yes Gastrointestinal Disorders: Abdominal Hernia, Gastroesophageal Reflux (managed with petpto bismol) Musculoskeletal History of Musculoskeletal Dis: No Endocrine History of Endocrine Disorders: No HEENT History of HEENT Disorders: No Cancer History of Cancer: Yes Cancer: Thyroid (right side thyroidectomy about 5yrs old) Psychosocial History of Psychiatric Problem: Yes Behavioral Health Disorders: Anxiety Family Medical History Significant Family History: Heart Disease (Dad [place] at 50), Cancer (Grandmother, gastric cancer), Diabetes (Grandmother), Stroke (Mom at 50) Review of Systems-General Constitutional: chills, fever, malaise, weight loss (10lbs loss since appy on Tuesday) EENTM: No blurred vision, No double vision, No epistaxis Respiratory: cough, phlegm Cardiovascular: No chest pain, No palpitations Gastrointestinal: RLQ, abdominal pain (RLQ), diarrhea, loss of appetite, nausea, vomiting Genitourinary: decreased output, dysuria, pain, other (foul smell and "different color") Musculoskeletal: No muscle pain, No muscle stiffness Skin: No change in color, No change in hair/nails Psychiatric/Neurological: Anxiety; Denies Seizure; Other (Hyperosmia since quit smoking last week) Physical Exam-General Problems Physical Exam General Appearance: WD/WN, no apparent distress Eyes: Bilateral Eye PERRL, Bilateral Eye EOMI HEENT: pharynx normal; No scleral icterus (R), No scleral icterus (L), No photophobia Neck: non-tender, supple; No lymphadenopathy (R), No lymphadenopathy (L) Respiratory: chest non-tender, lungs clear, normal breath sounds, no respiratory distress Cardiovascular: regular rate, rhythm, no murmur Gastrointestinal: normal bowel sounds; No distended; guarding (voluntary in RLQ), tenderness, other (no erythema, incisions c/d/i) Rectal: deferred Back: no CVA tenderness, no vertebral tenderness Extremities: normal range of motion, no pedal edema, no calf tenderness Neurologic/Psychiatric: family day care provider II-XII nml as tested, alert, normal mood/affect, oriented x 3 Skin: normal color, warm/dry Lymphatic: no adenopathy (neck, axilla or groin) Assessment/Plan Assessment/Plan Assessment/Plan RLQ pain Malaise Dysuria Pt had recent surgery, has now developed some increasing symptoms of fever, chills, malaise. He will need work-up for Lungs, UTI, and abdomen; ordered CT abd/pelvis, UA, CXR. He had labs which showed WBC of 26k. Will start on IV ABX, pain control, IV fluids and anti-emetics as needed. Supervisory-Addendum Brief Verification & Attestation Participated in pt care: history, MDM, physical Personally performed: exam, history, MDM, supervision of care Care discussed with: Medical Student Procedures: n/a Verification and Attestation of Medical Student E/M Service A medical student performed and documented this service. I then reviewed and verified all information documented by the medical student and made modifications to such information, when appropriate. I personally performed a physical exam, medical decision making and then discussed any differences betwee n the notes and made revisions as necessary to create one note. Andrea Rodriguez , 05/26/21 , 15:38 ZOE SANON May 25, 2021 16:03 ANDREA RODRIGUEZ DO May 26, 2021 15:38
[2021-05-25] MEDS: LACTATED RINGERS 1,000 ML IV SCH (17:00)
[2021-05-25] MEDS ORDERED: PIPERACILLIN/TAZO 4.5 GM/NS 100 ML IV NR ×2 (17:00)
[2021-05-25 17:17] LABS: BILIRUBIN,URINE NEGATIVE (NEGATIVE); CLARITY,URINE TURBID; COLOR,URINE YELLOW; GLUCOSE, URINE (UA) NEGATIVE (NEGATIVE); KETONES,URINE TRACE (NEGATIVE); LEUKOCYTE ESTERASE ,URINE 2+ (NEGATIVE); NITRITE,URINE NEGATIVE (NEGATIVE); PROTEIN,URINE 3+ (NEGATIVE)
[2021-05-25 18:09] LABS: BACTERIA,URINE LARGE /HPF; WBC,URINE >100 /HPF
--- NOTE | 2021-05-25 19:04 | Diagnostic Imaging Report ---
INDICATION: Postoperative complications from an appendectomy one week ago. Patient is having a cough. FINDINGS: Frontal view of the chest demonstrates minimal atelectasis in the left lung base. The heart size and vascularity are normal. There are no pleural effusions. IMPRESSION: There is minimal atelectasis in the left lung base. Dictated by: Dictated on workstation # [id number]
--- NOTE | 2021-05-25 19:09 | Diagnostic Imaging Report ---
PROCEDURE: CT abdomen and pelvis with contrast. TECHNIQUE: Multiple contiguous axial images were obtained through the abdomen and pelvis after administration of intravenous contrast. Auto Exposure Controls were utilized during the CT exam to meet ALARA standards for radiation dose reduction. All CT scans use one or more of the following dose optimizing techniques: automated exposure control, MA and/or KvP adjustment based on patient size and exam type or iterative reconstruction. INDICATION: Abdominal pain and leukocytosis. Postoperative complications from an appendectomy one week ago. Previous appendectomy, hernia repair, unsure of cancer from childhood. COMPARISON STUDY: CT abdomen and pelvis from May 18. FINDINGS: Emphysematous changes are again seen in the lung bases. No pleural effusions are present. The liver, gallbladder, spleen, pancreas and adrenal glands are normal. Contrast in the kidneys prohibits visualization of kidney stones but no previous stones were seen. Kidneys appear normal. Urinary bladder and prostate gland are normal. There is some thickening of the small bowel loops in the left upper quadrant and some of the distal duodenum. A few air-fluid levels and mild dilatation are present. In the right lower abdominal wall there is an air collection measuring up to almost 2 cm with a thick wall. No fluid is seen within this. Within the right lower quadrant peritoneal cavity there is an air-fluid level and a loculated collection measuring 4.5 x 2.7 cm. Adjacent bowel loops are thickened. IMPRESSION: There is an air collection in the abdominal wall in the right lower quadrant. There is also an adjacent peritoneal abscess. An associated ileus is present. Dictated by: Dictated on workstation # [id number]
[2021-05-25 19:44] VITALS: BP 116/71
[2021-05-25] MEDS: PIPERACILLIN/TAZOBACTAM (BULK) 4.5 GM in NS (IVPB) 100 ML IV SCH (23:34)
[2021-05-25 23:58] VITALS: BP 102/66
[2021-05-26] MEDS: LACTATED RINGERS 1,000 ML IV SCH ×3 (00:43→09:43)
[2021-05-26 03:43] VITALS: BP 105/68
[2021-05-26 05:34] LABS: BASOPHILS % (AUTO) 0 % (0-10); EOSINOPHILS # (AUTO) 0.1 10^3/uL (0.0-0.3); EOSINOPHILS % (AUTO) 0 % (0-10); HEMATOCRIT 43 % (40-54); HEMOGLOBIN 14.4 g/dL (13.3-17.7); LYMPHOCYTES # (AUTO) 1.5 10^3/uL (1.0-4.0); LYMPHOCYTES % (AUTO) 10 % (12-44); MEAN CORPUSCULAR HEMOGLOBIN 31 pg (25-34); MEAN CORPUSCULAR HGB CONC 34 g/dL (32-36); MEAN CORPUSCULAR VOLUME 92 fL (80-99); MEAN PLATELET VOLUME 11.2 fL (9.0-12.2); MONOCYTES # (AUTO) 1.3 10^3/uL (0.0-1.0); MONOCYTES % (AUTO) 8 % (0-12); NEUTROPHILS # (AUTO) 12.2 10^3/uL (1.8-7.8); NEUTROPHILS % (AUTO) 80 % (42-75); PLATELET COUNT 267 10^3/uL (130-400); WHITE BLOOD COUNT 15.2 10^3/uL (4.3-11.0)
[2021-05-26 05:47] LABS: ALBUMIN 2.8 GM/DL (3.2-4.5); POTASSIUM 3.7 MMOL/L (3.6-5.0)
[2021-05-26 05:49] LABS: CALCIUM 8.1 MG/DL (8.5-10.1)
[2021-05-26 05:52] LABS: BILIRUBIN,TOTAL 0.6 MG/DL (0.1-1.0)
[2021-05-26 05:54] LABS: CREATININE SERUM 0.88 MG/DL (0.60-1.30)
[2021-05-26] MEDS: PIPERACILLIN/TAZOBACTAM (BULK) 4.5 GM in NS (IVPB) 100 ML IV SCH ×2 (06:35→14:49)
[2021-05-26 08:00] VITALS: BP 117/72
--- NOTE | 2021-05-26 08:46 | History & Physical ---
History of Present Illness History of Present Illness Reason for visit/HPI Abdirizak is a 50 yo m that presents with lower abdominal pain and GI distress following an appy last Tuesday. He localizes pain to the RLQ and describes pain as constant 10. He also complains of no appetite, nausea vomiting, diarrhea and foul smelling urine as well as pain with urination. He does not take any pain medication, and does not like the sideffects of analgesics. He also notes that he quit smoking last Tuesday, and has a newly acquired aversion to smoking as well as hyperosmia. He is currently resting in bed c NAD. Date of Admission May 25, 2021 at 12:40 Time Seen by a Provider: 08:01 I consulted on this patient on 05/26/21 08:01 Abdirizak is feeling much better today - able to urinate without significant pain on toilet 11/02 from 04/02 yesterday bottom turning lathe tender and guarding in RLQ Is willing to go home if there are no other significant issues related to his recent appy. Attending Physician Marcio Humphries DO Admitting Physician [facility] Consult Allergies and Home Medications Allergies Coded Allergies: No Known Drug Allergies (Unverified , 05/18/21) Home Medications Acetaminophen 500 Mg Tablet, 1,000 MG PO Q8H PRN for PAIN-MILD (1-4), (Reported) Last Action: Reviewed Hydrocodone/Acetaminophen 1 Each Tablet, 1 MG PO Q8H PRN for PAIN-MODERATE (5- 7), (Reported) Last Action: Reviewed Past Izxjvfh-Tsnktg-Cuflil Hx Patient Social History Tobacco Use?: No Smoking Status: Former Smoker (aversion to smoking since appy) Use of E-Cig and/or Vaping dev: No Substance use?: No Substance type: Caffeine (2L Dr. Pepper per day) Alcohol Use?: Yes Additional alcohol type: SCOTCH Alcohol Frequency: Rarely Pt feels they are or have been: No Immunizations Up To Date First/Initial COVID19 Vaccinat: NONE Second COVID19 Vaccination Bronson: NONE Tetanus Booster (TDap): Unknown Hepatitis A: No Hepatitis B: No Seasonal Allergies Seasonal Allergies: No Current Status Advance Directives: No Communicates: Verbally Primary Language: Belgian Preferred Spoken Language: Belgian Is interpretation needed?: No Implanted or Applied Medical D: None Past Medical History Surgeries: Abdominal, Appendectomy (may 18 2021), Joint Replacement (both knees 28 yrs ago) Kidney Stones (3x all passed without intervention) Gastroesophageal Reflux (managed with petpto bismol) Loss of Vision: Denies Hearing Impairment: Denies Thyroid (right side thyroidectomy about 5yrs old) Anxiety Family Medical History Heart Disease (Dad [place] at 50), Cancer (Grandmother, gastric cancer), Diabetes (Grandmother), Stroke (Mom at 50) Review of Systems Constitutional: no symptoms reported EENTM: no symptoms reported Respiratory: no symptoms reported Cardiovascular: no symptoms reported Gastrointestinal: RLQ, abdominal pain (RLQ) Genitourinary: dysuria (Still has mild pain on urination) Musculoskeletal: no symptoms reported Skin: no symptoms reported Psychiatric/Neurological: No Symptoms Reported Physical Exam Vital Signs Vital Signs - First Documented 05/25/21 12:39 Temp 35.7 Pulse 117 Resp 20 B/P (MAP) 139/58 (85) Pulse Ox 96 O2 Delivery Room Air Capillary Refill : Height, Weight, BMI Height: '" Weight: lbs. oz. kg; 25.27 BMI Method: General Appearance: No Apparent Distress Eyes: Bilateral Eye PERRL, Bilateral Eye EOMI HEENT: PERRL/EOMI, Pharynx Normal; No Scleral Icterus (L), No Scleral Icterus (R) Neck: Full Range of Motion, Non Tender, Supple Respiratory: Lungs Clear, Normal Breath Sounds, No Respiratory Distress Neurologic/Psychiatric: Alert, Oriented x3, account processor II-XII Norm as Tested Reflexes: 2+ Bicep (R), 2+ Bicep (L), 2+ Tricep (R), 2+ Tricep (L) Skin: Normal Color, Warm/Dry Lymphatic: No Adenopathy Assessment/Plan Assessment and Plan Recovering from UTI Plan - Repeat CBC & U/A, review CT Consider discharge ABDIRIZAK SANON May 26, 2021 08:46
[2021-05-26] MEDS ORDERED: PANTOPRAZOLE 40 MG (PROTONIX) VIAL IV SCH (09:00)
[2021-05-26] MEDS ORDERED: ACET-2267 PO (10:03)
[2021-05-26] MEDS ORDERED: ACHD5005 PO (10:03)
[2021-05-26 11:51] VITALS: BP 108/71
--- NOTE | 2021-05-26 12:01 | Progress Note - Surgery ---
HETAVIAZOE HAZEL 05/26/21 1201: Subjective Date Seen by a Provider: May 26, 2021 Time Seen by a Provider: 08:01 Subjective/Events-last exam Zoe is feeling much better today - able to urinate without significant pain on toilet 11/02 from 04/02 yesterday shearing machine tender and guarding in RLQ Review of Systems General: No Chills, No Night Sweats, No Fatigue, No Malaise HEENT: No Head Aches, No Eye Pain, No Ear Pain, No Dysphasia, No Sinus Congestion, No Post Nasal Drip, No Sore Throat Pulmonary: No Dyspnea, No Cough, No Pleuritic Chest Pain Cardiovascular: No: Chest Pain, Palpitations, Orthopnea, Paroxysmal Noc. Dyspnea, Edema, Lt Headedness Gastrointestinal: Abdominal Pain (RLQ - same since appy) Genitourinary: Dysuria (Very much improved since yesterday 11/02) Musculoskeletal: No: other, neck pain, shoulder pain, arm pain, back pain, hand pain, leg pain, foot pain Neurological: No: Weakness, Numbness, Incoordination, Change in speech, Confusion, Seizures, Other Focused Exam Respiratory: Lungs Clear, Normal Breath Sounds, No Accessory Muscle Use, No Respiratory Distress Cardiovascular: Regular Rate, Rhythm, No Edema, No Gallop, No JVD, No Murmur Peripheral Pulses: 2+ Radial Pulses (R), 2+ Radial Pulses (L) Skin: normal color, warm/dry Objective Exam Vital Signs Date Time Temp Pulse Resp B/P (MAP) Pulse Ox O2 Delivery O2 Flow Rate FiO2 05/26/21 11:51 36.0 78 18 108/71 (83) 98 Room Air 05/26/21 08:00 36.1 95 20 117/72 (87) 94 Room Air 05/26/21 03:43 36.0 92 18 105/68 (80) 95 Room Air 05/25/21 23:58 36.4 104 20 102/66 (78) 92 Room Air 05/25/21 20:45 99 Room Air 05/25/21 19:44 36.5 103 20 116/71 (86) 95 Room Air 05/25/21 15:30 35.8 102 20 110/78 (89) 95 05/25/21 12:40 Room Air 05/25/21 12:39 35.7 117 20 139/58 (85) 96 Room Air I & O 05/26/21 07:00 Intake Total 745 ml Balance 745 ml Capillary Refill : General Appearance: No Apparent Distress HEENT: PERRL/EOMI, Pharynx Normal; No Scleral Icterus (L), No Scleral Icterus (R) Neck: Full Range of Motion, Non Tender, Supple Respiratory: Lungs Clear, Normal Breath Sounds, No Respiratory Distress Peripheral Pulses: 2+ Radial Pulses (R), 2+ Radial Pulses (L) Gastrointestinal: normal bowel sounds; No abnormal bowel sounds, No distended; guarding, tenderness Neurologic/Psychiatric: Alert, Oriented x3, obiee lead developer II-XII Norm as Tested Skin: Normal Color, Warm/Dry Lymphatic: No Adenopathy Results Lab Laboratory Tests 05/25/21 17:05: Urine Color YELLOW, Urine Clarity TURBID, Urine pH 6.0, Urine Specific [place] >=1.030, Urine Protein 3+H, Urine Glucose (UA) NEGATIVE, Urine Ketones TRACEH, Urine Nitrite NEGATIVE, Urine Bilirubin NEGATIVE, Urine Urobilinogen 1.0, Urine Leukocyte Esterase 2+H, Urine RBC (Auto) 3+H, Urine RBC NONE, Urine WBC >100H, Urine Squamous Epithelial Cells NONE, Urine Renal Epithelial Cells NONE, Urine Crystals NONE, Urine Bacteria LARGEH, Urine Casts NONE, Urine Mucus LARGEH, Urine Culture Indicated YES 05/26/21 05:25: White Blood Count 15.2H, Red Blood Count 4.61, Hemoglobin 14.4, Hematocrit 43, Mean Corpuscular Volume 92, Mean Corpuscular Hemoglobin 31, Mean Corpuscular Hemoglobin Concent 34, Red Cell Distribution Width 13.3, Platelet Count 267, Mean Platelet Volume 11.2, Immature Granulocyte % (Auto) 1, Neutrophils (%) (Auto) 80H, Lymphocytes (%) (Auto) 10L, Monocytes (%) (Auto) 8, Eosinophils (%) (Auto) 0, Basophils (%) (Auto) 0, Neutrophils # (Auto) 12.2H, Lymphocytes # (Auto) 1.5, Monocytes # (Auto) 1.3H, Eosinophils # (Auto) 0.1, Basophils # (Auto) 0.0, Immature Granulocyte # (Auto) 0.1, Sodium Level 136, Potassium Level 3.7, Chloride Level 103, Carbon Dioxide Level 21, Anion Gap 12, Blood Urea Nitrogen 21H, Creatinine 0.88, Estimat Glomerular Filtration Rate 92, BUN/Creatinine Ratio 24, Glucose Level 97, Calcium Level 8.1L, Corrected Calcium 9.1, Total Bilirubin 0.6, Aspartate Amino Transf (AST/SGOT) 51H, Alanine Aminotransferase (ALT/SGPT) 41, Alkaline Phosphatase 76, Total Protein 6.0L, Albumin 2.8L Microbiology 05/25/21 Urine Culture - Preliminary, Resulted Gram Negative Isaac Strep Species, Beta Hemolytic Assessment/Plan Assessment/Plan Assessment/Plan Recovering from UTI, abdominal pain Plan - F/U U/A, CBC, Review CT, consult Rad for possible aspiration of air in abdomen in RLQ Clinical Quality Measures Admission Status Admission Dx Recovering from UTI Plan - Repeat CBC & U/A, review CT Consider discharge ANDREA HUMPHRIES DO 05/26/21 1258: Subjective Time Seen by a Provider: 11:46 Subjective/Events-last exam Pt seen and examined, states he feels much better today. Still has some abdominal pain, but is asking when he can go home. Review of Systems General: No Chills, No Night Sweats HEENT: No Head Aches Pulmonary: No Dyspnea, No Cough Cardiovascular: No: Chest Pain, Palpitations Gastrointestinal: Abdominal Pain (RLQ - same since appy); No: Nausea, Vomiting Genitourinary: Dysuria (Very much improved since yesterday 11/02) Objective Exam General Appearance: No Apparent Distress (pt is sitting up smiling in no distress at all) HEENT: PERRL/EOMI, Moist Mucous Membranes Respiratory: Lungs Clear, Normal Breath Sounds, No Respiratory Distress Cardiovascular: Regular Rate, Rhythm, No Murmur Gastrointestinal: soft; No distended; guarding (RLQ, voluntary), tenderness (RLQ) Assessment/Plan Assessment/Plan Assessment/Plan UTI R/O Abscess vs. Normal postoperative fluid RLQ Pt is getting IV ABX, pain control, encouraged to ambulate and will get him an IS. Radiologist is assessing for possible CT drainage. Supervisory-Addendum Brief Verification & Attestation Participated in pt care: history, MDM, physical Personally performed: exam, history, MDM, supervision of care Care discussed with: Medical Student Procedures: n/a Verification and Attestation of Medical Student E/M Service A medical student performed and documented this service. I then reviewed and ve rified all information documented by the medical student and made modifications to such information, when appropriate. I personally performed a physical exam, medical decision making and then discussed any differences between the notes and made revisions as necessary to create one note. Andrea Humphries , 05/26/21 , 12:58 ZOE SANON May 26, 2021 12:01 ANDREA HUMPHRIES DO May 26, 2021 12:58
[2021-05-26] MEDS ORDERED: AMOX-358 PO (15:01)
--- NOTE | 2021-05-26 15:03 | Discharge Inst-Surgical ---
Discharge Inst-Surgical Depart Medication/Instructions New, Converted or Re-Newed RX: Transmitted to Pharmacy Patient Instructions Follow up Appt: Make appointment for 1 week. [phone] Instructions: No lifting greater than 20 pounds. No strenuous activity. May shower in 24 hours, no tub bath or soaking. Use incentive spirometer at home as directed. No Smoking Skin/Wound Care: May remove bandages in am. You need to leave the Dermabond on incision it will fall off on it's own. Symptoms to Report: Appetite Changes, Extremity Discoloration, Numbness/Tingling, Swelling Increased, Bleeding Excessive, Eyesight Changes, Pain Increased, Urine Color Change, Constipation(Persistent), Fever over 101 degree F, Pain/Pressure in chest, Urinating Difficulty, Cough Up/Vomit Blood, Heart Beat Irreg/Pounding, Pain/Pressure in jaw, Cramps in feet or legs, Lightheadedness, Pain/Pressure in shoulder, Diarrhea(Persistent), Memory Changes Suddenly, Questions/Concerns, Weight gain consecutive days, Dizziness/Fainting, Nausea/Vomiting, Shortness of Breath, Weight gain over 2 pounds If questions or concerns contact your physician Or seek help at emergency department. Consults/Follow Up Patient Instructions: Pt NPO after midnight, Plan for CT guided drainage tomorrow at 1pm. Be at out surgery center at noon. Activity Activity as Tolerated: Yes Activity Instructions: Avoid Stress to Incision Driving Instructions: No Driving/Refer to Dr. Castro Discharge Diet: No Restrictions Diet After 24 Hours: Clear Liquid if Nauseous If Any Problems/Questions/Issu: Contact Your Physician, Go to Emergency Room Skin/Wound Care Infection Signs and Symptoms: Increased Redness, Foul Odor of Wound, Increased Drainage, Skin Itchy or Has a Rash, Increased Swelling, Temperature Above 101 F Bathing Instructions: Shower Stitches/Richar/Dermabond Dis: ANDREA Hart DO May 26, 2021 15:03
[2021-05-26 15:45] VITALS: BP 107/75
[2021-05-26 16:15] VITALS: BP 107/75
== END 2021-05-26 16:30 | disposition home or self-care (01) | DRG 689 ==
LOC: 4TH 12:40
PROVIDERS: ADMIT Surgery; ATTEND Surgery
DX: N39.0 Urinary tract infection, site not specified (principal); K65.1 Peritoneal abscess; Z96.653 Presence of artificial knee joint, bilateral; K21.9 Gastro-esophageal reflux disease without esophagitis; F41.9 Anxiety disorder, unspecified; R53.81 Other malaise; Z87.891 Personal history of nicotine dependence; Z90.49 Acquired absence of other specified parts of digestive tract
CPT/HCPCS: 36415; 71045; 74177; 80053; 81000; 85025; 87077; 87088; 87186; 94664; 99211; G0378

== ENCOUNTER → 2021-05-25 | Outpatient (CLI) | payer MEDICAID ==
[~2021-05-25] MED LIST changes: +ACET-2267 PO; +AMOX-358 PO
[2021-05-25 10:06] LABS: BASOPHILS # (AUTO) 0.1 10^3/uL (0.0-0.1); BASOPHILS % (AUTO) 0 % (0-10); EOSINOPHILS % (AUTO) 0 % (0-10); HEMATOCRIT 47 % (40-54); HEMOGLOBIN 15.9 g/dL (13.3-17.7); LYMPHOCYTES # (AUTO) 1.4 10^3/uL (1.0-4.0); LYMPHOCYTES % (AUTO) 5 % (12-44); MEAN CORPUSCULAR HEMOGLOBIN 31 pg (25-34); MEAN CORPUSCULAR HGB CONC 34 g/dL (32-36); MEAN CORPUSCULAR VOLUME 91 fL (80-99); MEAN PLATELET VOLUME 11.2 fL (9.0-12.2); MONOCYTES # (AUTO) 1.7 10^3/uL (0.0-1.0); MONOCYTES % (AUTO) 6 % (0-12); NEUTROPHILS # (AUTO) 22.9 10^3/uL (1.8-7.8); NEUTROPHILS % (AUTO) 87 % (42-75); PLATELET COUNT 297 10^3/uL (130-400); WHITE BLOOD COUNT 26.4 10^3/uL (4.3-11.0)
[2021-05-25 10:36] LABS: ALBUMIN 3.2 GM/DL (3.2-4.5); BILIRUBIN,TOTAL 0.9 MG/DL (0.1-1.0); CALCIUM 8.7 MG/DL (8.5-10.1); CREATININE SERUM 0.99 MG/DL (0.60-1.30); POTASSIUM 4.1 MMOL/L (3.6-5.0); TOTAL PROTEIN 7.2 GM/DL (6.4-8.2)
[2021-05-25 10:38] LABS: BAND NEUTROPHILS 0 %; BASOPHILS % (MANUAL) 0 %; EOSINOPHILS % (MANUAL) 0 %; LYMPHOCYTES % (MANUAL) 5 %; MONOCYTES % (MANUAL) 5 %; NEUTROPHILS % (MANUAL) 90 %
[2021-05-25 10:39] LABS: RBC MORPH NORMAL
== END ==
LOC: LAB 09:44
PROVIDERS: ATTEND Surgery
DX: R11.2 Nausea with vomiting, unspecified (principal)
CPT/HCPCS: 36415; 80053; 85007; 85027

== ENCOUNTER 2021-05-27 12:02 | Outpatient (CLI) | payer MEDICAID ==
[2021-05-27] VITALS (10 sets, daily range): BP systolic 92–104; BP diastolic 65–77
[~2021-05-27 12:02] MED LIST changes: +ACET-2267 PO; +AMOX-358 PO
[2021-05-27 12:58] LABS: BASOPHILS % (AUTO) 0 % (0-10); EOSINOPHILS # (AUTO) 0.1 10^3/uL (0.0-0.3); EOSINOPHILS % (AUTO) 1 % (0-10); HEMATOCRIT 45 % (40-54); HEMOGLOBIN 14.8 g/dL (13.3-17.7); LYMPHOCYTES # (AUTO) 1.8 10^3/uL (1.0-4.0); LYMPHOCYTES % (AUTO) 18 % (12-44); MEAN CORPUSCULAR HEMOGLOBIN 31 pg (25-34); MEAN CORPUSCULAR HGB CONC 33 g/dL (32-36); MEAN CORPUSCULAR VOLUME 93 fL (80-99); MEAN PLATELET VOLUME 11.3 fL (9.0-12.2); MONOCYTES # (AUTO) 0.8 10^3/uL (0.0-1.0); MONOCYTES % (AUTO) 8 % (0-12); NEUTROPHILS # (AUTO) 7.1 10^3/uL (1.8-7.8); NEUTROPHILS % (AUTO) 72 % (42-75); PLATELET COUNT 319 10^3/uL (130-400); WHITE BLOOD COUNT 9.7 10^3/uL (4.3-11.0)
[2021-05-27 13:10] LABS: INR 1.1 (0.8-1.4); PROTHROMBIN TIME PATIENT 14.7 SEC (12.2-14.7)
[2021-05-27] MEDS ORDERED: NS IV 1000 ML 1,000 ML IV STA (14:03)
[2021-05-27] MEDS ORDERED: LIDOCAINE 1% INJ 20 ML 20 ML VIAL INJ ONE (14:15)
[2021-05-27] MEDS ORDERED: MIDAZOLAM 2 MG/2 ML (VERSED) VIAL IVP ONE (14:15)
[2021-05-27] MEDS ORDERED: fentaNYL INJ 100 MCG/2 ML AMP IVP ONE (14:15)
--- NOTE | 2021-05-27 15:14 | Pre-Op Note & Conscious Sedat ---
Pre-Operative Progress Note H&P Reviewed The H&P was reviewed, patient examined and no changes noted. Date H&P Reviewed: May 27, 2021 Time H&P Reviewed: 14:00 Pre-Op Diagnosis: abdominal abscess Conscious Sedation Pre-Proced Time 14:00 ASA Score 2 For ASA 3 and 4: Consider anesthesia and medical clearance. Also, for patients with a history of failed moderate sedation consider anesthesia. Airway Lungs Heart ASA score ASA 1: a normal healthy patient ASA 2: a patient with a mild systemic disease (mid diabetes, controlled hypertension, obesity ASA 3: a patient with a severe systemic disease that limits activity (angina, COPD, prior Myocardial infarction) ASA 4: a patient with an incapacitating disease that is a constant threat to life (CHF, renal failure) ASA 5: a moribund patient not expected to survive 24 hrs. (ruptured aneurysm) ASA 6: a declared brain- patient whose organs are being harvested. For emergent operations, add the letter E after the classification Mallampati Classification Grade 2 Sedation Plan Analgesia, Amnesia, Plan communicated to team members, Discussed options with lisa bahena/fam, Discussed risks with patient/fam The patient is an appropriate candidate to undergo the planned procedure, sedation, and anesthesia. The patient immediately re-assessed prior to indication. LUANA EVERETT MD May 27, 2021 15:14
--- NOTE | 2021-05-27 15:36 | Diagnostic Imaging Report ---
INDICATION: POST APPY ABCESS RLQ. EXAMINATION: Patient presents for CT-guided drainage. All CT scans use one or more of the following dose optimizing techniques: automated exposure control, MA and/or KvP adjustment based on patient size and exam type or iterative reconstruction. PROCEDURE: Patient was brought to the CT suite and placed on table in supine position. Axial imaging through the lower abdomen and pelvis was performed to evaluate appropriate entry site. Procedure was performed utilizing conscious sedation by radiology nursing with constant patient monitoring. Patient was given a total of 50 mg of fentanyl intravenously. Total procedure time was approximately 8 minutes. Right lower quadrant was prepped and draped in the usual sterile fashion. A small amount of 1% lidocaine was utilized for local anesthesia. 10 cm Yueh needle was advanced into the fluid collection in the right lower quadrant. A total of approximately 140 mL of brownish serous fluid was aspirated. Follow-up imaging shows no residual fluid collection. A drain was not left behind. Patient tolerated the procedure well and left the department in stable condition. IMPRESSION: Successful CT-guided aspiration of the fluid collection in the right lower quadrant obtaining approximately 140 mL of brownish serous fluid. Fluid will be sent for culture and sensitivity. Patient tolerated the procedure well. Dictated by: Dictated on workstation # [id number]
== END 2021-05-27 16:35 | disposition home or self-care (01) ==
LOC: SDC 12:02
PROVIDERS: ATTEND Surgery
DX: L02.211 Cutaneous abscess of abdominal wall (principal)
CPT/HCPCS: 77012; 85025; 85610; 85730; 87070; 87075; 87077; 87205; C1729; 36415; 87076

== ENCOUNTER 2022-01-15 16:34 | Inpatient (IN) | payer MEDICAID ==
[~2022-01-15] VITALS: Ht 172.7 cm; Wt 72.5 kg
[2022-01-15] MEDS ORDERED: fentaNYL INJ 100 MCG/2 ML AMP IVP ONE (17:15)
--- NOTE | 2022-01-15 17:17 | ED General ---
General Stated Complaint: ABD HERNIA PAIN Source of Information: Patient Exam Limitations: No Limitations (SU DIALLO APRN) History of Present Illness Date Seen by Provider: Jan 15, 2022 Time Seen by Provider: 17:15 Initial Comments To ER with right lower quadrant abdominal pain that began 2 to 3 days ago. He has been passing gas and having bowel movements as per normal. No nausea no vomiting. Had an initial right inguinal hernia repair with mesh 17 years ago. Last year he had an appendectomy but it was found that the appendix had reportedly grown into the mesh at the right inguinal hernia repair site so the mesh was removed. He expected to have this replaced at some point in the future. Timing/Duration: 1-2 Days Severity: Moderate Associated Systoms: Denies Symptoms (SU DIALLO APRN) Allergies and Home Medications Allergies Coded Allergies: No Known Drug Allergies (Unverified , 05/18/21) Patient Home Medication List Home Medication List Reviewed: Yes (SU DIALLO APRN) Acetaminophen (Tylenol Extra Strength) 500 Mg Tablet, 1,000 MG PO Q8H PRN for PAIN-MILD (1-4), (Reported) Entered as Reported by: MARIELENA RIVERA on 05/26/21 1003 Last Action: Held Ibuprofen (Ibuprofen) 200 Mg Tablet, 200 MG PO Q8H PRN for PAIN-MILD (1-4), (Re ported) Entered as Reported by: AGUSTO CERNA on 01/18/22 0819 Last Action: Held Review of Systems Review of Systems Constitutional: see HPI EENTM: see HPI Respiratory: no symptoms reported Cardiovascular: no symptoms reported Gastrointestinal: abdominal pain Genitourinary: no symptoms reported Musculoskeletal: no symptoms reported Skin: no symptoms reported Psychiatric/Neurological: No Symptoms Reported Hematologic/Lymphatic: No Symptoms Reported Immunological/Allergic: no symptoms reported (SU DIALLO APRN) Past Cgyzjfo-Jxptkf-Vlkatv Hx Immunizations Up To Date Tetanus Booster (TDap): Unknown (SU DIALLO APRN) Seasonal Allergies Seasonal Allergies: No (SU DIALLO APRN) Past Medical History Surgeries: Yes Abdominal, Appendectomy, Joint Replacement Respiratory: No Cardiac: No Neurological: No Genitourinary: Yes Kidney Stones Gastrointestinal: Yes Abdominal Hernia, Gastroesophageal Reflux Musculoskeletal: No Endocrine: No HEENT: No Loss of Vision: Denies Hearing Impairment: Denies Cancer: Yes Thyroid Psychosocial: Yes Anxiety Integumentary: No (SU DIALLO APRN) Family Medical History Heart Disease, Cancer, Diabetes, Stroke (SU DIALLO APRN) Physical Exam Vital Signs Vital Signs - First Documented 01/15/22 17:09 Temp 35.7 Pulse 89 Resp 18 B/P (MAP) 124/88 (100) Pulse Ox 97 O2 Delivery Room Air (LITZY,PATRICIA K DO) Vital Signs Capillary Refill : (SU DIALLO APRN) Height, Weight, BMI Height: '" Weight: lbs. oz. kg; 25.27 BMI Method: General Appearance: No Apparent Distress, WD/WN Eyes: Bilateral Eye Normal Inspection, Bilateral Eye PERRL, Bilateral Eye EOMI Neck: Full Range of Motion, Normal Inspection Respiratory: Normal Breath Sounds, No Accessory Muscle Use, No Respiratory Distress Cardiovascular: Regular Rate, Rhythm, Normal Peripheral Pulses Gastrointestinal: Normal Bowel Sounds, Soft, Other (At the incision in the right inguinal region which is healed there is a marble sized bulge with some erythema around it. It is very tender to palpation.) Extremity: Normal Capillary Refill, Normal Inspection Neurologic/Psychiatric: Alert, Oriented x3 Skin: Normal Color, Warm/Dry (SU DIALLO APRN) Progress/Results/Core Measures Suspected Sepsis SIRS Temperature: Pulse: Respiratory Rate: Laboratory Tests 01/15/22 17:17: White Blood Count 12.3H Blood Pressure / Mean: Laboratory Tests 01/15/22 17:17: Creatinine 0.97, Platelet Count 233, Total Bilirubin 0.5 (SU DIALLO APRN) Results/Orders Lab Results Laboratory Tests Test 01/15/22 17:17 01/15/22 18:14 Range/Units White Blood Count 12.3 H 4.3-11.0 10^3/uL Red Blood Count 5.84 H 4.30-5.52 10^6/uL Hemoglobin 18.2 H 13.3-17.7 g/dL Hematocrit 55 H 40-54 % Mean Corpuscular Volume 94 80-99 fL Mean Corpuscular Hemoglobin 31 25-34 pg Mean Corpuscular Hemoglobin Concent 33 32-36 g/dL Red Cell Distribution Width 13.9 10.0-14.5 % Platelet Count 233 130-400 10^3/uL Mean Platelet Volume 11.0 9.0-12.2 fL Immature Granulocyte % (Auto) 0 % Neutrophils (%) (Auto) 75 42-75 % Lymphocytes (%) (Auto) 17 12-44 % Monocytes (%) (Auto) 8 0-12 % Eosinophils (%) (Auto) 1 0-10 % Basophils (%) (Auto) 0 0-10 % Neutrophils # (Auto) 9.2 H 1.8-7.8 10^3/uL Lymphocytes # (Auto) 2.1 1.0-4.0 10^3/uL Monocytes # (Auto) 1.0 0.0-1.0 10^3/uL Eosinophils # (Auto) 0.1 0.0-0.3 10^3/uL Basophils # (Auto) 0.0 0.0-0.1 10^3/uL Immature Granulocyte # (Auto) 0.0 0.0-0.1 10^3/uL Sodium Level 138 135-145 MMOL/L Potassium Level 4.1 3.6-5.0 MMOL/L Chloride Level 104 98-107 MMOL/L Carbon Dioxide Level 24 21-32 MMOL/L Anion Gap 10 5-14 MMOL/L Blood Urea Nitrogen 10 7-18 MG/DL Creatinine 0.97 0.60-1.30 MG/DL Estimat Glomerular Filtration Rate 96 BUN/Creatinine Ratio 10 Glucose Level 96 70-105 MG/DL Calcium Level 10.0 8.5-10.1 MG/DL Corrected Calcium 10.1 8.5-10.1 MG/DL Total Bilirubin 0.5 0.1-1.0 MG/DL Aspartate Amino Transf (AST/SGOT) 13 5-34 U/L Alanine Aminotransferase (ALT/SGPT) 15 0-55 U/L Alkaline Phosphatase 87 40-136 U/L Total Protein 7.2 6.4-8.2 GM/DL Albumin 3.9 3.2-4.5 GM/DL Urine Color YELLOW Urine Clarity CLOUDY Urine pH 6.0 5-9 Urine Specific [place] 1.020 1.016-1.022 Urine Protein TRACE H NEGATIVE Urine Glucose (UA) NEGATIVE NEGATIVE Urine Ketones NEGATIVE NEGATIVE Urine Nitrite POSITIVE H NEGATIVE Urine Bilirubin NEGATIVE NEGATIVE Urine Urobilinogen 1.0 < = 1.0 MG/DL Urine Leukocyte Esterase 2+ H NEGATIVE Urine RBC (Auto) 3+ H NEGATIVE Urine RBC 25-50 H /HPF Urine WBC >100 H /HPF Urine Crystals PRESENT H /LPF Urine Amorphous Sediment FEW BRIAN URATES H /LPF Urine Bacteria FEW H /HPF Urine Casts NONE /LPF Urine Mucus NEGATIVE /LPF Urine Culture Indicated YES (PATRICIA MCGHEE DO) Micro Results Microbiology 01/15/22 Urine Culture - Final, Complete Escherichia coli Strep anginosus (LITZYPATRICIA K DO) Vital Signs/I&O 01/15/22 17:09 Temp 35.7 Pulse 89 Resp 18 B/P (MAP) 124/88 (100) Pulse Ox 97 O2 Delivery Room Air (PATRICIA MCGHEE DO) Vital Signs/I&O Capillary Refill : (SU DIALLO APRN) Departure Communication (Admissions) 1850-Spoke with our surgeon Dr. Edwards, recommends transfer to facility with urology services since we do not have that here. Rocephin has been ordered. 1951-Spoke with Dr Anglin from [facility] urology [place]. Feels this is more of a general surgical issue and there is not bladder pathology contributing to this. I then called back our surgeon Dr. Edwards who will call me back. 2031-Jerry is here to see the patient. (SU DIALLO APRN) Impression Primary Impression: Vesicocutaneous fistula Additional Impression: Intra-abdominal abscess Disposition: XF [facility] HOSP Condition: Stable Transfer Transfer Reason: Exceeds level of care Time Spoke to Accepting Phy: 18:47 (SU DIALLO APRN) Departure-Patient Inst. Referrals: [facility] (PCP/Family) Primary Care Physician ATTENDING PHYSICIAN NOTE: I WAS PHYSICALLY PRESENT ER PHYSICIAN, BUT I WAS NOT INVOLVED IN ANY DECISION MAKING OR ANY CARE OF THIS PATIENT. (PATRICIA MCGHEE DO) SU DIALLO APRN Jan 15, 2022 17:17 PATRICIA MCGHEE DO Jan 20, 2022 03:58
[2022-01-15 17:23] LABS: BASOPHILS % (AUTO) 0 % (0-10); EOSINOPHILS # (AUTO) 0.1 10^3/uL (0.0-0.3); EOSINOPHILS % (AUTO) 1 % (0-10); HEMATOCRIT 55 % (40-54); HEMOGLOBIN 18.2 g/dL (13.3-17.7); LYMPHOCYTES # (AUTO) 2.1 10^3/uL (1.0-4.0); LYMPHOCYTES % (AUTO) 17 % (12-44); MEAN CORPUSCULAR HEMOGLOBIN 31 pg (25-34); MEAN CORPUSCULAR HGB CONC 33 g/dL (32-36); MEAN CORPUSCULAR VOLUME 94 fL (80-99); MONOCYTES % (AUTO) 8 % (0-12); NEUTROPHILS # (AUTO) 9.2 10^3/uL (1.8-7.8); NEUTROPHILS % (AUTO) 75 % (42-75); PLATELET COUNT 233 10^3/uL (130-400); WHITE BLOOD COUNT 12.3 10^3/uL (4.3-11.0)
[2022-01-15 17:31] LABS: ALBUMIN 3.9 GM/DL (3.2-4.5)
[2022-01-15 17:32] LABS: POTASSIUM 4.1 MMOL/L (3.6-5.0)
[2022-01-15 17:34] LABS: TOTAL PROTEIN 7.2 GM/DL (6.4-8.2)
[2022-01-15 17:36] LABS: BILIRUBIN,TOTAL 0.5 MG/DL (0.1-1.0)
[2022-01-15 17:38] LABS: CREATININE SERUM 0.97 MG/DL (0.60-1.30)
[2022-01-15] MEDS ORDERED: NS 100 ML (IVPB) BAG IV ONE (18:00)
[2022-01-15] MEDS ORDERED: HOLD METFORMIN - RECEIVED CONTRAST 20 ML VIAL IV SCH (18:00)
[2022-01-15] MEDS ORDERED: IOHEXOL 350 MG/ML 100 ML (OMNIPAQUE 350) VIAL IV ONE (18:00)
[2022-01-15 18:20] LABS: BILIRUBIN,URINE NEGATIVE (NEGATIVE); CLARITY,URINE CLOUDY; COLOR,URINE YELLOW; GLUCOSE, URINE (UA) NEGATIVE (NEGATIVE); KETONES,URINE NEGATIVE (NEGATIVE); LEUKOCYTE ESTERASE ,URINE 2+ (NEGATIVE); NITRITE,URINE POSITIVE (NEGATIVE); PROTEIN,URINE TRACE (NEGATIVE)
--- NOTE | 2022-01-15 18:32 | Diagnostic Imaging Report ---
EXAMINATION: CT abdomen and pelvis with intravenous contrast. TECHNIQUE: Multiple contiguous axial images were obtained through the abdomen and pelvis after the uneventful administration of intravenous contrast. All CT scans use one or more of the following dose optimizing techniques: automated exposure control, MA and/or KvP adjustment based on patient size and exam type or iterative reconstruction. HISTORY: Abdominal pain. COMPARISON: 05/25/2021. FINDINGS: Lung bases: Bibasilar dependent atelectasis. Solid organs: The liver is normal without focal lesion. The gallbladder is normal. There is no biliary ductal dilation. Pancreas is normal. Spleen is normal. Adrenal glands are normal. The kidneys are normal without hydronephrosis. Bowel: The stomach and small bowel are normal without obstruction. There is mild wall thickening of the left hemicolon which may be secondary to underdistention. Peritoneum: There is a serpiginous loculated fluid collection within the right lower pelvis anterior to the urinary bladder extending into the right inguinal canal and inguinal subcutaneous tissues. Largest pocket of fluid measures 3.7 x 1.5 cm. The collection abuts the anterior urinary bladder and causes tethering. No suspicious lymphadenopathy. Vasculature: Calcification of the aorta without aneurysm. Musculoskeletal: No suspicious osseous lesion or compression fracture. Pelvis: The prostate gland is normal. IMPRESSION: 1. Right inguinal fluid collection which abuts the anterior urinary bladder causing tethering with a fistulous tract to the skin surface. This may represent evolution of the previously seen right lower pelvic abscess from 05/25/2021. There may be a fistula to the urinary bladder as there is associated wall thickening and trace focus of air. 2. No other acute abnormality in the abdomen or pelvis. Dictated by: Dictated on workstation # [id number]
[2022-01-15 18:38] LABS: AMORPHOUS SEDIMENT,UR FEW AMOR URATES /LPF; BACTERIA,URINE FEW /HPF; RBC,URINE 25-50 /HPF; WBC,URINE >100 /HPF
[2022-01-15] MEDS ORDERED: cefTRIAXone 1 GM PRE-MIX 50 ML IV ONE (18:45)
[2022-01-15] MEDS ORDERED: LIDOCAINE UROJET 2% GEL 10 ML PKG TOP ONE (20:30)
[2022-01-15] MEDS ORDERED: LORazepam INJ 2 MG/ML (ATIVAN) VIAL IVP PRN (20:30)
[2022-01-15 22:08] VITALS: BP 117/83
[2022-01-15] MEDS: NICOTINE 2 MG LOZENGE (COMMIT) MM PRN (22:30)
--- NOTE | 2022-01-15 22:41 | Consultation - Surgery ---
History of Present Illness History of Present Illness Patient Consulted On(raegan/time) 01/15/22 22:35 Date Seen by Provider: Jan 15, 2022 Time Seen by Provider: 20:30 History of Present Illness Patient is a 51-year-old male who presents with 2 to 3 days of right groin pain. It became red and inflamed over the last day which is why he came to the emergency department. He states that the area is bumped or touched she will have a severe sharp pain that he rates at a 10 out of 10. Leaving it alone makes it better. Patient states that he had a right inguinal hernia repair approximately 17 years ago that was open. He last year had an appendectomy where the appendix had been stuck into the mesh and required part of the mesh to be removed. Patient states from time to time he will have area swell up in the right groin because little bit discomfort but then usually go away. He currently denies any nausea vomiting fever sweats chills shortness of breath or chest pain. Patient has CT scan that does show some fluid collection towards her right groin. 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 Allergies and Home Medications Allergies Coded Allergies: No Known Drug Allergies (Unverified , 05/18/21) Patient Home Medication List Home Medication List Reviewed: Yes (Currently takes nothing) Acetaminophen (Tylenol Extra Strength) 500 Mg Tablet, 1,000 MG PO Q8H PRN for PAIN-MILD (1-4), (Reported) Entered as Reported by: MARIELENA RIVERA on 05/26/21 1003 Amoxicillin/Potassium Clav (Augmentin 875-125 Tablet) 1 Each Tablet, 1 EACH PO BID Prescribed by: ANDREA RODRIGUEZ on 05/26/21 1501 Hydrocodone/Acetaminophen (Hydrocodone-Acetamin 5-325 mg) 1 Each Tablet, 1 MG PO Q8H PRN for PAIN-MODERATE (5-7), (Reported) Entered as Reported by: MARIELENA RIVERA on 05/26/21 1003 Past Krqtlpe-Ocebbx-Unffcq Hx Patient Social History Smoking Status: Current Everyday Smoker Former Smoker, Quit: May 18, 2021 Type Used: Cigarettes Recent Hopitalizations: Yes (hernia 16yrs ago, knee replacement 28yrs ago) Alcohol Use?: Yes Have you traveled recently?: Yes Immunizations Up To Date Tetanus Booster (TDap): Unknown Seasonal Allergies Seasonal Allergies: No Surgeries History of Surgeries: Yes Surgeries: Abdominal, Appendectomy, Joint Replacement Respiratory History of Respiratory Disorde: No Cardiovascular History of Cardiac Disorders: No Neurological History of Neurological Disord: No Genitourinary History of Genitourinary Disor: Yes Genitourinary Disorders: Kidney Stones Gastrointestinal History of Gastrointestinal Di: Yes Gastrointestinal Disorders: Abdominal Hernia, Gastroesophageal Reflux Musculoskeletal History of Musculoskeletal Dis: No Endocrine History of Endocrine Disorders: No HEENT History of HEENT Disorders: No Loss of Vision: Denies Hearing Impairment: Denies Cancer History of Cancer: Yes Cancer: Thyroid Psychosocial History of Psychiatric Problem: Yes Behavioral Health Disorders: Anxiety Integumentary History of Skin or Integumenta: No Reviewed Nursing Assessment Reviewed/Agree w Nursing PMH: Yes Family Medical History Significant Family History: Heart Disease, Cancer, Diabetes, Stroke Review of Systems-General Constitutional: No chills, No diaphoresis EENTM: No blurred vision, No double vision Respiratory: No cough, No dyspnea on exertion Cardiovascular: No chest pain, No palpitations Gastrointestinal: abdominal pain (RLQ); No nausea, No vomiting Genitourinary: No decreased output, No discharge Musculoskeletal: No back pain, No joint pain Skin: No change in color, No change in hair/nails Psychiatric/Neurological: Denies Anxiety, Denies Depressed, Denies Emotional Problems All Other Systems Reviewed Negative Unless Noted: Yes (Negative excepted noted.) Physical Exam-General Problems Physical Exam Vital Signs Vital Signs - First Documented 01/15/22 17:09 Temp 35.7 Pulse 89 Resp 18 B/P (MAP) 124/88 (100) Pulse Ox 97 O2 Delivery Room Air Capillary Refill : Less Than 3 Seconds General Appearance: WD/WN, no apparent distress HEENT: PERRL/EOMI, normal ENT inspection Neck: non-tender, supple Respiratory: chest non-tender, no respiratory distress, no accessory muscle use Cardiovascular: regular rate, rhythm, no JVD Gastrointestinal: soft, tenderness (Right groin with some swelling and erythema approximately 1 x 4 cm in diameter tender to touch) Rectal: deferred Back: no CVA tenderness, no vertebral tenderness Extremities: non-tender, normal inspection Neurologic/Psychiatric: alert, normal mood/affect, oriented x 3 Skin: normal color (Except for right groin with erythematous changes as noted above.), warm/dry Data Review Labs Laboratory Tests 01/15/22 17:17: White Blood Count 12.3H, Red Blood Count 5.84H, Hemoglobin 18.2H, Hematocrit 55H , Mean Corpuscular Volume 94, Mean Corpuscular Hemoglobin 31, Mean Corpuscular Hemoglobin Concent 33, Red Cell Distribution Width 13.9, Platelet Count 233, Mean Platelet Volume 11.0, Immature Granulocyte % (Auto) 0, Neutrophils (%) (Auto) 75, Lymphocytes (%) (Auto) 17, Monocytes (%) (Auto) 8, Eosinophils (%) (Auto) 1, Basophils (%) (Auto) 0, Neutrophils # (Auto) 9.2H, Lymphocytes # (Auto) 2.1, Monocytes # (Auto) 1.0, Eosinophils # (Auto) 0.1, Basophils # (Auto) 0.0, Immature Granulocyte # (Auto) 0.0, Sodium Level 138, Potassium Level 4.1, Chloride Level 104, Carbon Dioxide Level 24, Anion Gap 10, Blood Urea Nitrogen 10, Creatinine 0.97, Estimat Glomerular Filtration Rate 96, BUN/Creatinine Ratio 10, Glucose Level 96, Calcium Level 10.0, Corrected Calcium 10.1, Total Bilirubin 0.5, Aspartate Amino Transf (AST/SGOT) 13, Alanine Aminotransferase (ALT/SGPT) 15, Alkaline Phosphatase 87, Total Protein 7.2, Albumin 3.9 01/15/22 18:14: Urine Color YELLOW, Urine Clarity CLOUDY, Urine pH 6.0, Urine Specific [place] 1.020, Urine Protein TRACEH, Urine Glucose (UA) NEGATIVE, Urine Ketones NEGATIVE, Urine Nitrite POSITIVEH, Urine Bilirubin NEGATIVE, Urine Urobilinogen 1.0, Urine Leukocyte Esterase 2+H, Urine RBC (Auto) 3+H, Urine RBC 25-50H, Urine WBC >100H, Urine Crystals PRESENTH, Urine Amorphous Sediment FEW BRIAN URATESH, Urine Bacteria FEWH, Urine Casts NONE, Urine Mucus NEGATIVE, Urine Culture Indicated YES Assessment/Plan Assessment/Plan Assessment/Plan Right groin cellulitis Vesicocutaneous fistula Right groin pain Tobacco use History of right hernia mesh removed secondary to infection Patient discussed findings by CT scan demonstrating possible vesicocutaneous fistula. This is also could be an abscess as well. Currently the area is small. Patient with likely vesicocutaneous fistula after discussing with urology will put a Morales catheter and keep the bladder decompressed. We will place him on antibiotics. We will see if any resolution. If no improvement may need to explore the right groin. Patient also understands that he may need urological services, which we currently do not have. Nicotine patch due to patient being a smoker. N.p.o. after midnight. FABI PARRA DO Jan 15, 2022 22:41
[2022-01-15] MEDS ORDERED: ONDANSETRON 4 MG/2 ML (SDV) Z0FRAN IV PRN (22:45)
[2022-01-15] MEDS ORDERED: PIPERACILLIN SODIUM/TAZOBACTAM 4.5 GM in NS (IVPB) 100 ML IV ONE (23:00)
[2022-01-15] MEDS: LACTATED RINGERS 1,000 ML IV SCH (23:09)
[2022-01-15 23:58] VITALS: BP 133/82
[2022-01-16] MEDS: HYDROcodone/APAP 5 MG/325 MG (LORTAB) TAB PO PRN ×2 (02:18→19:29)
[2022-01-16] MEDS: NICOTINE 2 MG LOZENGE (COMMIT) MM PRN ×4 (03:34→19:24)
[2022-01-16 04:09] VITALS: BP 122/71
[2022-01-16] MEDS: PIPERACILLIN SODIUM/TAZOBACTAM 4.5 GM in NS (IVPB) 100 ML IV SCH ×3 (05:19→20:44)
[2022-01-16 05:25] LABS: BASOPHILS % (AUTO) 0 % (0-10); EOSINOPHILS % (AUTO) 0 % (0-10); HEMATOCRIT 48 % (40-54); HEMOGLOBIN 16.3 g/dL (13.3-17.7); LYMPHOCYTES # (AUTO) 1.8 10^3/uL (1.0-4.0); LYMPHOCYTES % (AUTO) 13 % (12-44); MEAN CORPUSCULAR HEMOGLOBIN 31 pg (25-34); MEAN CORPUSCULAR HGB CONC 34 g/dL (32-36); MEAN CORPUSCULAR VOLUME 93 fL (80-99); MEAN PLATELET VOLUME 11.7 fL (9.0-12.2); MONOCYTES # (AUTO) 1.1 10^3/uL (0.0-1.0); MONOCYTES % (AUTO) 8 % (0-12); NEUTROPHILS # (AUTO) 11.1 10^3/uL (1.8-7.8); NEUTROPHILS % (AUTO) 78 % (42-75); PLATELET COUNT 195 10^3/uL (130-400); WHITE BLOOD COUNT 14.1 10^3/uL (4.3-11.0)
[2022-01-16 05:38] LABS: POTASSIUM 3.8 MMOL/L (3.6-5.0)
[2022-01-16 05:40] LABS: CALCIUM 9.2 MG/DL (8.5-10.1)
[2022-01-16 05:44] LABS: CREATININE SERUM 0.89 MG/DL (0.60-1.30)
[2022-01-16 08:27] VITALS: BP 100/58
--- NOTE | 2022-01-16 08:39 | History & Physical-Hospitalist ---
History of Present Illness HPI/Chief Complaint To ER with right lower quadrant abdominal pain that began 2 to 3 days ago. He has been passing gas and having bowel movements as per normal. No nausea no vomiting. Had an initial right inguinal hernia repair with mesh 17 years ago. Last year he had an appendectomy but it was found that the appendix had reportedly grown into the mesh at the right inguinal hernia repair site so the mesh was removed. He expected to have this replaced at some point in the future. Patient reports episodes like this have occurred intermittently over the last 15years. This is the largest area hardness and most tender that he has had. He denies any periods of time where the skin breaks down. He reports that his urine is foul-smelling at times intermittently cloudy and also intermittently bloody. He has been treated for urinary tract infection in the past. He denies any sensation of pneumaturia. Post void residual in the emergency room after catheter placement was 75 cc recorded. He denies any night sweats chills or fe iris reports this morning the red area in the right groin is not quite as tender nor is it quite as hard as it was yesterday. He does report spasms of pain with the urge to urinate quite severe for several minutes and then they subside. Date Seen 01/16/22 Time Seen by a Provider: 08:00 Attending Physician Vanda Gilman MD [facility] Referring Physician Date of Admission Jan 15, 2022 at 20:40 Home Medications & Allergies Home Medications Reviewed patient Home Medication Reconciliation performed by pharmacy medication reconciliations energy technician and/or nursing. Patients Allergies have been reviewed. Allergies Allergies Coded Allergies No Known Drug Allergies (Unverified05/18/21) Past Vupypnd-Bpqrvd-Yvsxah Hx Patient Social History Tobacco Use?: Yes Tobacco type used: Cigars Smoking Status: Current Everyday Smoker Use of E-Cig and/or Vaping dev: No Substance use?: No Alcohol Use?: Yes Alcohol Frequency: Once in a while Pt feels they are or have been: No Immunizations Up To Date First/Initial COVID19 Vaccinat: 2020 Second COVID19 Vaccination Bronson: 2020 Tetanus Booster (TDap): Unknown Hepatitis A: No Hepatitis B: No Seasonal Allergies Seasonal Allergies: No Current Status Advance Directives: No Primary Language: Venezuelan Preferred Spoken Language: Venezuelan Is interpretation needed?: No Implanted or Applied Medical D: None Past Medical History Surgeries: Abdominal, Appendectomy, Joint Replacement Kidney Stones Abdominal Hernia, Gastroesophageal Reflux Loss of Vision: Denies Hearing Impairment: Denies Thyroid Anxiety Family Medical History Heart Disease, Cancer, Diabetes, Stroke Review of Systems Constitutional: see HPI Physical Exam Physical Exam Vital Signs Vital Signs - First Documented 01/15/22 17:09 Temp 35.7 Pulse 89 Resp 18 B/P (MAP) 124/88 (100) Pulse Ox 97 O2 Delivery Room Air Capillary Refill : Less Than 3 Seconds Height, Weight, BMI Height: '" Weight: lbs. oz. kg; 24.30 BMI Method: General Appearance: Anxious, Chronically ill, Moderate Distress (During periods of apparent bladder spasm) Respiratory: Chest Non Tender, Lungs Clear, No Accessory Muscle Use, No Respiratory Distress, Other (Some diminishment of breath sounds diffusely) Cardiovascular: Regular Rate, Rhythm, No Edema, No Gallop, No JVD, No Murmur, Normal Peripheral Pulses Gastrointestinal: Normal Bowel Sounds, No Organomegaly, No Pulsatile Mass, Non Tender, Soft, Other (Right groin reveals erythema induration and swelling with tenderness patient reports not as bad as it was yesterday. No drainage no ulceration or sinus cavities apparent.) Extremity: Normal Inspection, Normal Range of Motion, Non Tender, No Calf Tenderness, No Pedal Edema Neurologic/Psychiatric: Alert, Oriented x3 Results Results/Procedures Labs Laboratory Tests 01/15/22 17:17 01/16/22 05:04 Patient resulted labs reviewed. Assessment/Plan Admission Diagnosis 1. Likely right groin abscess secondary to vesicocutaneous fistula with secon payam urinary tract infection continue antibiotics defer to surgery in regards to incision and drainage. Patient will need urologic consultation and consideration for cystoscopy. We will continue bladder decompression with Morales catheter till then. 2. Bladder spasm post catheter placement will initiate BNO suppositories. 3. Tobaccoism continue nicotine replacement therapy. Admission Status: Inpatient Order (span 2 midnights) Reason for Inpatient Admission: See admission diagnosis VANDA GILMAN MD Jan 16, 2022 08:39
[2022-01-16] MEDS ORDERED: BELLADONNA ALK/OPIUM (B & O) 30 MG SUPP PR PRN (08:45)
[2022-01-16] MEDS: LACTATED RINGERS 1,000 ML IV SCH ×2 (09:38→19:24)
--- NOTE | 2022-01-16 09:51 | Progress Note - Surgery ---
MAHSA RIVERA 01/16/22 0951: Subjective Date Seen by a Provider: Jan 16, 2022 Time Seen by a Provider: 08:59 Subjective/Events-last exam Pt reports that he has been having bladder spasms since the morse catheter was placed. States that they are happening about every 10 minutes. Rates the pain as a 7/10 when they happen. He says that his right groin is still cleaner. Area is not as hard is as it was yesterday according to pt. Denies having any fever or chills. Currently NPO Review of Systems General: No Chills, No Night Sweats, No Other (fever) HEENT: No Head Aches, No Visual Changes Pulmonary: No Dyspnea, No Cough Cardiovascular: No: Chest Pain, Palpitations Gastrointestinal: No: Nausea, Vomiting, Abdominal Pain, Constipation Genitourinary: Other (bladder spasms, morse in place) Musculoskeletal: No: neck pain, back pain Neurological: No: Weakness, Numbness Objective Exam Vital Signs Date Time Temp Pulse Resp B/P (MAP) Pulse Ox O2 Delivery O2 Flow Rate FiO2 01/16/22 08:27 36.8 97 20 100/58 (72) 91 Room Air 01/16/22 04:09 37.0 110 18 122/71 (88) 93 Room Air 01/16/22 02:48 36.9 01/15/22 23:58 36.9 104 18 133/82 (99) 92 Room Air 01/15/22 22:08 36.8 107 20 117/83 (94) 96 Room Air 01/15/22 21:55 Room Air 01/15/22 21:32 36.7 82 18 112/79 97 Room Air 01/15/22 17:09 35.7 89 18 124/88 (100) 97 Room Air I & O 01/16/22 07:00 Intake Total 750 ml Output Total 650 ml Balance 100 ml Capillary Refill : Less Than 3 Seconds General Appearance: No Apparent Distress, WD/WN, Chronically ill HEENT: PERRL/EOMI; No Photophobia Neck: Normal Inspection, Non Tender, Supple Respiratory: Lungs Clear, Normal Breath Sounds, No Accessory Muscle Use, No Respiratory Distress Cardiovascular: Regular Rate, Rhythm, No JVD, No Murmur, Normal Peripheral Pulses Gastrointestinal: soft, tenderness (Right groin with some swelling and erythema approximately 1 x 4 cm in diameter tender to touch, center is soft to the touch w/ outer areas still hard to touch) Extremity: Normal Inspection, Normal Range of Motion, Non Tender, No Calf Tenderness, No Pedal Edema Neurologic/Psychiatric: Alert, Oriented x3, Normal Mood/Affect Skin: Normal Color, Warm/Dry Lymphatic: No Adenopathy (cervical) Results Lab Laboratory Tests 01/15/22 17:17: White Blood Count 12.3H, Red Blood Count 5.84H, Hemoglobin 18.2H, Hematocrit 55H , Mean Corpuscular Volume 94, Mean Corpuscular Hemoglobin 31, Mean Corpuscular Hemoglobin Concent 33, Red Cell Distribution Width 13.9, Platelet Count 233, Mean Platelet Volume 11.0, Immature Granulocyte % (Auto) 0, Neutrophils (%) (Auto) 75, Lymphocytes (%) (Auto) 17, Monocytes (%) (Auto) 8, Eosinophils (%) (Auto) 1, Basophils (%) (Auto) 0, Neutrophils # (Auto) 9.2H, Lymphocytes # (Auto) 2.1, Monocytes # (Auto) 1.0, Eosinophils # (Auto) 0.1, Basophils # (Auto) 0.0, Immature Granulocyte # (Auto) 0.0, Sodium Level 138, Potassium Level 4.1, Chloride Level 104, Carbon Dioxide Level 24, Anion Gap 10, Blood Urea Nitrogen 10, Creatinine 0.97, Estimat Glomerular Filtration Rate 96, BUN/Creatinine Ratio 10, Glucose Level 96, Calcium Level 10.0, Corrected Calcium 10.1, Total Bili peterson 0.5, Aspartate Amino Transf (AST/SGOT) 13, Alanine Aminotransferase (ALT/SGPT) 15, Alkaline Phosphatase 87, Total Protein 7.2, Albumin 3.9 01/15/22 18:14: Urine Color YELLOW, Urine Clarity CLOUDY, Urine pH 6.0, Urine Specific [place] 1.020, Urine Protein TRACEH, Urine Glucose (UA) NEGATIVE, Urine Ketones NEGATIVE, Urine Nitrite POSITIVEH, Urine Bilirubin NEGATIVE, Urine Urobilinogen 1.0, Urine Leukocyte Esterase 2+H, Urine RBC (Auto) 3+H, Urine RBC 25-50H, Urine WBC >100H, Urine Crystals PRESENTH, Urine Amorphous Sediment FEW BIRAN URATESH, Urine Bacteria FEWH, Urine Casts NONE, Urine Mucus NEGATIVE, Urine Culture Indicated YES 01/16/22 05:04: White Blood Count 14.1H, Red Blood Count 5.22, Hemoglobin 16.3, Hematocrit 48, Mean Corpuscular Volume 93, Mean Corpuscular Hemoglobin 31, Mean Corpuscular Hemoglobin Concent 34, Red Cell Distribution Width 14.0, Platelet Count 195, Mean Platelet Volume 11.7, Immature Granulocyte % (Auto) 0, Neutrophils (%) (Auto) 78H, Lymphocytes (%) (Auto) 13, Monocytes (%) (Auto) 8, Eosinophils (%) (Auto) 0, Basophils (%) (Auto) 0, Neutrophils # (Auto) 11.1H, Lymphocytes # (Auto) 1.8, Monocytes # (Auto) 1.1H, Eosinophils # (Auto) 0.0, Basophils # (Auto) 0.0, Immature Granulocyte # (Auto) 0.1, Sodium Level 138, Potassium Level 3.8, Chloride Level 107, Carbon Dioxide Level 20L, Anion Gap 11, Blood Urea Nitrogen 11, Creatinine 0.89, Estimat Glomerular Filtration Rate 105, BUN/Creatinine Ratio 12, Glucose Level 105, Calcium Level 9.2 Microbiology 01/15/22 Urine Culture - Preliminary, Resulted Gram Negative Isaac Assessment/Plan Assessment/Plan Assessment/Plan Right groin cellulitis Vesicocutaneous fistula Right groin pain Bladder spasm Tobacco use History of right hernia mesh removed secondary to infection Plan CT scan done yesterday demonstrating possible vesicocutaneous fistula, could be an abscess as well. Currently the area is small. Morse catheter in place to keep the bladder decompressed. Urine culture grow >100k/mL gram negative rods. Continue Zosyn. We will see if any resolution. If no improvement may need to explore the right groin. Patient also understands that he may need urological services, which we currently do not have. Nicotine patch due to patient being a smoker. Started today on B&O suppository for bladder spasms Followed by FABI Shafer DO 01/16/22 1549: Subjective Subjective/Events-last exam Patient bladder spasms since the Morse catheter was placed. Patient states that he feels the right groin is improving slightly. Is not as tender and not as hard either. He denies any nausea vomiting fever sweats chills shortness of breath or chest pain at this time. Objective Exam General Appearance: No Apparent Distress, WD/WN HEENT: PERRL/EOMI, Normal ENT Inspection Neck: Normal Inspection, Non Tender Respiratory: Chest Non Tender, No Accessory Muscle Use, No Respiratory Distress Cardiovascular: Regular Rate, Rhythm, No JVD Gastrointestinal: soft, tenderness (Right groin with some swelling and erythema approximately 1 x 4 cm in diameter tender to touch, center is soft to the touch w/ outer areas still firm to touch) Extremity: Normal Inspection, Normal Range of Motion Neurologic/Psychiatric: Alert, Oriented x3, Normal Mood/Affect Skin: Normal Color, Warm/Dry, Erythema (Minimal right groin) Assessment/Plan Assessment/Plan Assessment/Plan Right groin cellulitis Vesicocutaneous fistula Right groin pain Bladder spasm Tobacco use History of right hernia mesh removed secondary to infection Plan CT scan done yesterday demonstrating possible vesicocutaneous fistula, could be an abscess as well. Currently the area is small. Morse catheter in place to keep the bladder decompressed. Urine culture grow >100k/mL gram negative rods. Continue Zosyn. We will see if any resolution. If no improvement may need to explore the right groin or incision and drainage. Patient also understands that he may need urological services for cystoscopy, which we currently do not have. Nicotine patch due to patient being a smoker. Started today on B&O suppository for bladder spasms Diet today and plan npo after midnight. Supervisory-Addendum Brief Verification & Attestation Participated in pt care: history, MDM, physical Personally performed: exam, history, MDM, supervision of care Care discussed with: Medical Student Procedures: n/a Results interpretation: Verified all documentation Verification and Attestation of Medical Student E/M Service A medical student performed and documented this service in my presence. I reviewed and verified all information documented by the medical student and made modifications to such information, when appropriate. I personally performed the physical exam and medical decision making. Fabi Parra, Jan 16, 2022,10:49 MAHSA RIVERA Jan 16, 2022 09:51 FABI PARRA DO Jan 16, 2022 15:49
[2022-01-16 11:34] VITALS: BP 97/65
[2022-01-16 16:00] VITALS: BP 103/66
[2022-01-16 19:53] VITALS: BP 108/63
[2022-01-17] VITALS (7 sets, daily range): BP systolic 94–144; BP diastolic 58–80
[2022-01-17] MEDS: LACTATED RINGERS 1,000 ML IV SCH ×2 (03:11→15:30)
[2022-01-17] MEDS: NICOTINE 2 MG LOZENGE (COMMIT) MM PRN ×2 (03:16→14:57)
[2022-01-17] MEDS: PIPERACILLIN SODIUM/TAZOBACTAM 4.5 GM in NS (IVPB) 100 ML IV SCH ×3 (05:20→20:45)
--- NOTE | 2022-01-17 08:00 | Progress Note - Surgery ---
MAHSA RIVERA 01/17/22 0800: Subjective Date Seen by a Provider: Jan 17, 2022 Time Seen by a Provider: 07:11 Subjective/Events-last exam Pt reports that last night that the skin over his fistula tract ruptured last night. States that he awake to his gown being wet from a bloody fluid. The area has being having small amounts of bloody appearing discharge since. Pt reports that he is no longer having any pain over his right groin since. Says that he is still having bladder spasms. The pain is about the same as it was yesterday but the frequency has decreased from every 10 minutes to every 30 minutes. Review of Systems General: No Chills, No Night Sweats HEENT: No Head Aches, No Visual Changes Pulmonary: No Dyspnea, No Cough Cardiovascular: No: Palpitations Gastrointestinal: No: Nausea, Vomiting, Abdominal Pain Genitourinary: Other (bladder spasms, morse in place) Musculoskeletal: No: neck pain, back pain Neurological: No: Weakness, Numbness Objective Exam Vital Signs Date Time Temp Pulse Resp B/P (MAP) Pulse Ox O2 Delivery O2 Flow Rate FiO2 01/17/22 03:33 37.0 104 18 102/64 (77) 95 Room Air 01/17/22 00:08 37.4 104 18 144/80 (101) 92 Room Air 01/16/22 20:46 37.0 114 18 93 Room Air 01/16/22 20:45 Room Air 01/16/22 19:53 37.4 121 18 108/63 (78) 92 Room Air 01/16/22 16:00 36.9 105 20 103/66 (78) 94 Room Air 01/16/22 11:34 37.0 90 18 97/65 (76) 93 Room Air 01/16/22 08:27 36.8 97 20 100/58 (72) 91 Room Air 01/16/22 08:00 Room Air I & O 01/17/22 07:00 Intake Total 1200 ml Output Total 1200 ml Balance 0 ml Capillary Refill : Less Than 3 Seconds General Appearance: No Apparent Distress, WD/WN HEENT: PERRL/EOMI; No Photophobia Neck: Normal Inspection, Non Tender Respiratory: Chest Non Tender, Normal Breath Sounds, No Accessory Muscle Use, No Respiratory Distress Cardiovascular: Regular Rate, Rhythm, No JVD, Normal Peripheral Pulses Gastrointestinal: soft, tenderness (Right groin with some swelling and erythema (improving) approximately 1 x 4 cm in diameter decreased tenderness, center is draining a light red fluid, outer areas are firm but seem improved from yesterday) Extremity: Normal Inspection, Normal Range of Motion Neurologic/Psychiatric: Alert, Oriented x3, Normal Mood/Affect Skin: Normal Color, Warm/Dry, Erythema (Minimal right groin) Lymphatic: No Adenopathy (cervical) Results Lab Microbiology 01/15/22 Urine Culture - Preliminary, Resulted Gram Negative Isaac Assessment/Plan Assessment/Plan Assessment/Plan Right groin cellulitis Vesicocutaneous fistula Right groin pain Bladder spasm Tobacco use History of right hernia mesh removed secondary to infection Plan CT scan done 01/14 demonstrating possible vesicocutaneous fistula, could be an abscess as well. Currently the area is small. Morse catheter in place to keep the bladder decompressed. Urine culture grow >100k/mL gram negative rods. Continue Zosyn. Area now has a light red discharge. Culture of discharge taken, awaiting results. Patient also understands that he may need urological services for cystoscopy, which we currently do not have. Nicotine patch due to patient being a smoker. On B&O suppository for bladder spasms NPO ALEXY PARRA DO 01/17/22 1304: Subjective Subjective/Events-last exam Patient states that his groin area is feeling little bit better. The area had a small rupture which is having some drainage from it. The drainage is slightly thin slightly purulent material. He states that mattress filling machine tender to touch around the area. Still complains of bladder spasms. He has a Morse catheter placed. Denies any nausea vomiting fever sweats chills shortness of breath or chest pain. Objective Exam General Appearance: No Apparent Distress, WD/WN HEENT: PERRL/EOMI, Normal ENT Inspection Neck: Full Range of Motion, Normal Inspection, Non Tender Respiratory: Chest Non Tender, No Accessory Muscle Use, No Respiratory Distress Cardiovascular: Regular Rate, Rhythm, No JVD Gastrointestinal: soft, tenderness (Right groin with some swelling and erythema (improving) approximately 1 x 4 cm in diameter decreased tenderness, center is draining a light red/purulent thin fluid, outer areas are firm but seem improved from yesterday) Neurologic/Psychiatric: Alert, Oriented x3 Skin: Warm/Dry, Erythema (Minimal right groin) Lymphatic: No Adenopathy (cervical) Assessment/Plan Assessment/Plan Assessment/Plan Right groin cellulitis Vesicocutaneous fistula Right groin pain Bladder spasm Tobacco use History of right hernia mesh removed secondary to infection Plan CT scan done 01/14 demonstrating possible vesicocutaneous fistula, could be an abscess as well or both. Morse catheter in place to keep the bladder decompressed. Urine culture grow >100k/mL gram negative rods. Continue Zosyn. Area now has a light red/purulent discharge. Culture of discharge taken, awaiting results. Patient also understands that he may need urological services for cystoscopy, which we currently do not have. Nicotine patch due to patient being a smoker. On B&O suppository for bladder spasms Discussed doing incision and drainage at bedside to help with drainage. He und erstands risks and benefits and agrees with proceeding. May need further surgical intervention as well. Procedure incision and drainage right groin. Right groin was prepped and draped in a sterile fashion. Timeout was performed. 10 mL 1% lidocaine was used anesthetize the area. A 15 blade scalpel was used to make a 2.5 cm incision at the area of drainage. Purulent material that was slightly thin proceeded out of the wound which culture was obtained. Copious amounts of irrigation was used to irrigate and the wound packed with quarter inch iodoform. Sterile bandage was applied. Patient tolerated procedure well without any complications. Supervisory-Addendum Brief Verification & Attestation Participated in pt care: history, MDM, physical Personally performed: exam, history, MDM, supervision of care Care discussed with: Medical Student Procedures: n/a Procedure type: I&D (Performed by myself) Results interpretation: Verified all documentation Verification and Attestation of Medical Student E/M Service A medical student performed and documented this service in my presence. I reviewed and verified all information documented by the medical student and made modifications to such information, when appropriate. I personally performed the physical exam and medical decision making. Alexy Parra Jan 17, 2022,13:10 MAHSA RIVERA Jan 17, 2022 08:00 ALEXY PARRA DO Jan 17, 2022 13:04
[2022-01-17 09:19] LABS: BASOPHILS % (AUTO) 0 % (0-10); EOSINOPHILS # (AUTO) 0.1 10^3/uL (0.0-0.3); EOSINOPHILS % (AUTO) 0 % (0-10); HEMATOCRIT 45 % (40-54); HEMOGLOBIN 15.1 g/dL (13.3-17.7); LYMPHOCYTES # (AUTO) 2.3 10^3/uL (1.0-4.0); LYMPHOCYTES % (AUTO) 19 % (12-44); MEAN CORPUSCULAR HEMOGLOBIN 31 pg (25-34); MEAN CORPUSCULAR HGB CONC 33 g/dL (32-36); MEAN CORPUSCULAR VOLUME 93 fL (80-99); MEAN PLATELET VOLUME 11.1 fL (9.0-12.2); MONOCYTES # (AUTO) 1.2 10^3/uL (0.0-1.0); MONOCYTES % (AUTO) 10 % (0-12); NEUTROPHILS # (AUTO) 8.4 10^3/uL (1.8-7.8); NEUTROPHILS % (AUTO) 70 % (42-75); PLATELET COUNT 195 10^3/uL (130-400)
[2022-01-17 09:30] LABS: POTASSIUM 3.8 MMOL/L (3.6-5.0)
[2022-01-17 09:37] LABS: ALBUMIN 3.6 GM/DL (3.2-4.5)
[2022-01-17 09:39] LABS: CALCIUM 8.5 MG/DL (8.5-10.1)
[2022-01-17 09:40] LABS: TOTAL PROTEIN 6.5 GM/DL (6.4-8.2)
[2022-01-17 09:42] LABS: BILIRUBIN,TOTAL 1.2 MG/DL (0.1-1.0)
[2022-01-17 09:44] LABS: CREATININE SERUM 0.84 MG/DL (0.60-1.30)
[2022-01-17] MEDS ORDERED: LIDOCAINE 1% INJ 50 ML (XYLOCAINE) VIAL ONE (10:44)
--- NOTE | 2022-01-17 11:16 | Progress Note - Hospitalist ---
Subjective HPI/CC On Admission Date Seen by Provider: Jan 17, 2022 Time Seen by Provider: 14:00 To ER with right lower quadrant abdominal pain that began 2 to 3 days ago. He has been passing gas and having bowel movements as per normal. No nausea no vomiting. Had an initial right inguinal hernia repair with mesh 17 years ago. Last year he had an appendectomy but it was found that the appendix had reportedly grown into the mesh at the right inguinal hernia repair site so the mesh was removed. He expected to have this replaced at some point in the future. Patient reports episodes like this have occurred intermittently over the last 15years. This is the largest area hardness and most tender that he has had. He denies any periods of time where the skin breaks down. He reports that his urine is foul-smelling at times intermittently cloudy and also intermittently bloody. He has been treated for urinary tract infection in the past. He denies any sensation of pneumaturia. Post void residual in the emergency room after catheter placement was 75 cc recorded. He denies any night sweats chills or fever reports this morning the red area in the right groin is not quite as tender nor is it quite as hard as it was yesterday. He does report spasms of pain with the urge to urinate quite severe for several minutes and then they subside. Subjective/Events-last exam Patient continuing to have intermittent bladder spasms not quite as frequent. He did not note much benefit from B and O suppository. Upon my arrival he was being prepped for bedside incision and drainage by Dr. Edwards who had noted a little bit of spontaneous purulent drainage. He has had no night sweats chills or fever with groin discomfort unchanged from yesterday and minimal as long as he is not moving. Objective Exam Vital Signs Vital Signs Date Time Temp Pulse Resp B/P (MAP) Pulse Ox O2 Delivery O2 Flow Rate FiO2 01/17/22 11:35 36.4 84 20 95/58 (70) 94 Room Air Capillary Refill : Less Than 3 Seconds General Appearance: No Apparent Distress, Anxious Respiratory: Chest Non Tender, Lungs Clear, Normal Breath Sounds, No Accessory Muscle Use, No Respiratory Distress Cardiovascular: Regular Rate, Rhythm, No Edema, No Gallop, No JVD, No Murmur, Normal Peripheral Pulses Extremity: Other (Right groin mass unchanged mild erythema small area of excoriation for which there has been some reports of drainage currently being prepped and draped for I&D.) Results/Procedures Lab Laboratory Tests 01/17/22 09:13 Patient resulted labs reviewed. Assessment/Plan Assessment and Plan Assess & Plan/Chief Complaint 1. Likely right groin abscess secondary to vesicocutaneous fistula with second manuel urinary tract infection continue antibiotics defer to surgery in regards to incision and drainage. Patient will need urologic consultation and consideration for cystoscopy. We will continue bladder decompression with Morales catheter till then. Culture growing E. coli sensitivities pending. If E. coli is also growing from I&D drainage which is being performed today would consider simplification of antibiotic therapy. 2. Tobaccoism continue nicotine replacement therapy VANDA GILMAN MD Jan 17, 2022 11:16
[2022-01-17] MEDS: HYDROcodone/APAP 5 MG/325 MG (LORTAB) TAB PO PRN ×2 (12:31→20:49)
[2022-01-18] MEDS: NICOTINE 2 MG LOZENGE (COMMIT) MM PRN ×4 (02:58→21:09)
[2022-01-18 04:09] VITALS: BP 116/54
[2022-01-18] MEDS: LACTATED RINGERS 1,000 ML IV SCH ×3 (04:23→21:09)
[2022-01-18] MEDS: HYDROcodone/APAP 5 MG/325 MG (LORTAB) TAB PO PRN ×4 (04:23→21:09)
[2022-01-18] MEDS: PIPERACILLIN SODIUM/TAZOBACTAM 4.5 GM in NS (IVPB) 100 ML IV SCH ×3 (05:57→21:09)
--- NOTE | 2022-01-18 07:15 | Progress Note - Surgery ---
MAHSA RIVERA 01/18/22 0715: Subjective Date Seen by a Provider: Jan 18, 2022 Time Seen by a Provider: 06:36 Subjective/Events-last exam Pt reports that his right groin is sore this morning, denies pain in the region unless it is touched. States that his bladder spasms are greatly decreased as he only had 1 over the course of the night. He is unsure how much discharge he is having from incision in right groin since it is covered w/ a bandage but states that the discharge is not soaking through his bandage. Denies any fevers or chills. When asked he denied having any other concerns. Review of Systems General: No Chills, No Night Sweats HEENT: No Head Aches, No Visual Changes Pulmonary: No Dyspnea, No Cough Cardiovascular: No: Chest Pain, Palpitations Gastrointestinal: No: Nausea, Vomiting, Abdominal Pain Genitourinary: Other (infrequent bladder spasms, morse in place) Musculoskeletal: No: neck pain, back pain Neurological: No: Weakness, Numbness Objective Exam Vital Signs Date Time Temp Pulse Resp B/P (MAP) Pulse Ox O2 Delivery O2 Flow Rate FiO2 01/18/22 04:09 37.1 84 18 116/54 (74) 93 Room Air 01/17/22 23:18 36.6 82 18 102/64 (77) 95 Room Air 01/17/22 20:50 36.6 81 18 119/73 (88) 95 Room Air 01/17/22 20:45 Room Air 01/17/22 16:17 36.5 83 19 106/73 (84) 94 Room Air 01/17/22 11:35 36.4 84 20 95/58 (70) 94 Room Air 01/17/22 09:00 Room Air 01/17/22 08:11 36.7 88 20 94/61 (72) 92 Room Air I & O 01/18/22 06:59 Intake Total 2100 ml Output Total 2350 ml Balance -250 ml Capillary Refill : Less Than 3 Seconds General Appearance: No Apparent Distress, WD/WN HEENT: PERRL/EOMI; No Photophobia Neck: Non Tender, Supple Respiratory: Chest Non Tender, Lungs Clear, Normal Breath Sounds, No Accessory Muscle Use, No Respiratory Distress Cardiovascular: Regular Rate, Rhythm, No Edema, No JVD, No Murmur, Normal Peripheral Pulses Gastrointestinal: soft, tenderness (Right groin with some swelling and erythema approximately 1 x 4 cm in diameter decreased tenderness, center has 2.5cm incision from I&D, draining a light red/purulent thin fluid, outer areas are firm, seem about the same as yesterday) Extremity: Non Tender, No Calf Tenderness, No Pedal Edema, Other Neurologic/Psychiatric: Alert, Oriented x3, Normal Mood/Affect Skin: Normal Color, Warm/Dry, Erythema (Minimal right groin) Lymphatic: No Adenopathy (cervical) Results Lab Laboratory Tests 01/17/22 09:13: White Blood Count 12.0H, Red Blood Count 4.84, Hemoglobin 15.1, Hematocrit 45, Mean Corpuscular Volume 93, Mean Corpuscular Hemoglobin 31, Mean Corpuscular Hemoglobin Concent 33, Red Cell Distribution Width 13.9, Platelet Count 195, Mean Platelet Volume 11.1, Immature Granulocyte % (Auto) 0, Neutrophils (%) (Auto) 70, Lymphocytes (%) (Auto) 19, Monocytes (%) (Auto) 10, Eosinophils (%) (Auto) 0, Basophils (%) (Auto) 0, Neutrophils # (Auto) 8.4H, Lymphocytes # (Auto) 2.3, Monocytes # (Auto) 1.2H, Eosinophils # (Auto) 0.1, Basophils # (Auto) 0.0, Immature Granulocyte # (Auto) 0.0, Sodium Level 134L, Potassium Level 3.8, Chloride Level 106, Carbon Dioxide Level 21, Anion Gap 7, Blood Urea Nitrogen 12, Creatinine 0.84, Estimat Glomerular Filtration Rate 107, BUN/Creatinine Ratio 14, Glucose Level 102, Calcium Level 8.5, Corrected Calcium 8.8, Total Bilirubin 1.2H, Aspartate Amino Transf (AST/SGOT) 10, Alanine Aminotransferase (ALT/SGPT) 11, Alkaline Phosphatase 73, Total Protein 6.5, Albumin 3.6, Lipase 14 Microbiology 01/15/22 Urine Culture - Final, Complete Escherichia coli Strep anginosus Assessment/Plan Assessment/Plan Assessment/Plan Right groin cellulitis Vesicocutaneous fistula S/p I&D of right groin 01/17 Right groin pain Bladder spasm Tobacco use History of right hernia mesh removed secondary to infection Plan CT scan done 01/14 demonstrating possible vesicocutaneous fistula, could be an abscess as well or both. Morse catheter in place to keep the bladder decompressed. Urine culture grow >100k/mL gram negative rods. Continue Zosyn. Area now has a light red/purulent discharge. Culture of discharge taken, awaiting results. Patient also understands that he may need urological services for cystoscopy, which we currently do not have. I&D done yesterday, Purulent material that was slightly thin proceeded out of the wound, continue to monitor wound and change dressings as needed. May need further surgical intervention as well. Nicotine lozenge due to patient being a smoker. On B&O suppository for bladder spasms Procedure incision and drainage right groin. Right groin was prepped and draped in a sterile fashion. Timeout was performed. 10 mL 1% lidocaine was used anesthetize the area. A 15 blade scalpel was used to make a 2.5 cm incision at the area of drainage. Purulent material that was slightly thin proceeded out of the wound which culture was obtained. Copious amounts of irrigation was used to irrigate and the wound packed with quarter inch iodoform. Sterile bandage was applied. Patient tolerated procedure well without any complications. FABI PARRA DO 01/18/22 1241: Subjective Subjective/Events-last exam Right groin sore. Still with drainage. Bladder spasms decreasing. WBC down. No new complaints. Denies n/v fever sweats chills shortness of breath or chest pain. Objective Exam General Appearance: No Apparent Distress, WD/WN HEENT: PERRL/EOMI Neck: Non Tender, Supple Respiratory: Chest Non Tender, No Accessory Muscle Use, No Respiratory Distress Cardiovascular: Regular Rate, Rhythm, No JVD Gastrointestinal: soft, tenderness (Right groin with some swelling and erythema approximately 1 x 4 cm in diameter decreased tenderness, center has 2.5cm incision from I&D, draining a light red/purulent thin fluid, outer areas are firm, seem about the same as yesterday) Extremity: Non Tender, No Calf Tenderness Neurologic/Psychiatric: Alert, Oriented x3, Normal Mood/Affect Skin: Normal Color, Warm/Dry, Erythema (Minimal right groin) Lymphatic: No Adenopathy (cervical) Assessment/Plan Assessment/Plan Assessment/Plan Right groin cellulitis Vesicocutaneous fistula S/p I&D of right groin 01/17 Right groin pain Bladder spasm Tobacco use History of right hernia mesh removed secondary to infection Plan CT scan done 01/14 demonstrating possible vesicocutaneous fistula, could be an a bscess as well or both. Morse catheter in place to keep the bladder decompressed. Urine culture grow >100k/mL gram negative rods. Continue Zosyn. Area now has a light red/purulent discharge. Culture of discharge taken, awaiting results. Patient also understands that he may need urological services for cystoscopy, which we currently do not have. I&D done yesterday, Purulent material that was slightly thin proceeded out of the wound, continue to monitor wound and change dressings as needed. May need further surgical intervention as well. Nicotine lozenge due to patient being a smoker. On B&O suppository for bladder spasms Supervisory-Addendum Brief Verification & Attestation Participated in pt care: history, MDM, physical Personally performed: exam, history, MDM, supervision of care Care discussed with: Medical Student Procedures: n/a Results interpretation: Verified all documentation Verification and Attestation of Medical Student E/M Service A medical student performed and documented this service in my presence. I reviewed and verified all information documented by the medical student and made modifications to such information, when appropriate. I personally performed the physical exam and medical decision making. Fabi Parra, Jan 18, 2022,12:41 MAHSA RIVERA Jan 18, 2022 07:15 FABI PARRA DO Jan 18, 2022 12:41
[2022-01-18 07:46] VITALS: BP 99/59
[2022-01-18] MEDS ORDERED: IBUP-2473 PO (08:19)
[2022-01-18 09:15] LABS: BASOPHILS % (AUTO) 0 % (0-10); EOSINOPHILS # (AUTO) 0.1 10^3/uL (0.0-0.3); EOSINOPHILS % (AUTO) 1 % (0-10); HEMATOCRIT 46 % (40-54); HEMOGLOBIN 15.1 g/dL (13.3-17.7); LYMPHOCYTES % (AUTO) 21 % (12-44); MEAN CORPUSCULAR HEMOGLOBIN 31 pg (25-34); MEAN CORPUSCULAR HGB CONC 33 g/dL (32-36); MEAN CORPUSCULAR VOLUME 94 fL (80-99); MEAN PLATELET VOLUME 11.2 fL (9.0-12.2); MONOCYTES # (AUTO) 0.9 10^3/uL (0.0-1.0); MONOCYTES % (AUTO) 10 % (0-12); NEUTROPHILS # (AUTO) 6.3 10^3/uL (1.8-7.8); NEUTROPHILS % (AUTO) 68 % (42-75); PLATELET COUNT 184 10^3/uL (130-400); WHITE BLOOD COUNT 9.3 10^3/uL (4.3-11.0)
[2022-01-18 09:41] LABS: CALCIUM 8.2 MG/DL (8.5-10.1); CREATININE SERUM 0.85 MG/DL (0.60-1.30); POTASSIUM 3.8 MMOL/L (3.6-5.0)
--- NOTE | 2022-01-18 10:09 | Progress Note ---
Subjective Subjective/Events-last exam Pt states he is feeling okay in general, if he doesn't move wrong, or isn't at dressing change. Objective Exam Last Set of Vital Signs Vital Signs Date Time Temp Pulse Resp B/P (MAP) Pulse Ox O2 Delivery O2 Flow Rate FiO2 01/18/22 07:46 36.6 84 18 99/59 (72) 93 Room Air Capillary Refill : Less Than 3 Seconds I&O Intake and Output 01/17/22 23:59 Intake Total 2100 ml Output Total 2200 ml Balance -100 ml Intake Oral 2100 ml Output Urine Total 2200 ml General: Alert, No Acute Distress Lungs: Clear to Auscultation, Normal Air Movement Heart: Regular Rate, No Murmurs Abdomen: Normal Bowel Sounds, Soft, Other (dressing in place to right groin, just changed, no drainage noted on bandage) Neuro: Normal Speech Psych/Mental Status: Mood NL Results/Procedures Lab Laboratory Tests 01/18/22 09:07: White Blood Count 9.3, Red Blood Count 4.85, Hemoglobin 15.1, Hematocrit 46, Mean Corpuscular Volume 94, Mean Corpuscular Hemoglobin 31, Mean Corpuscular Hemoglobin Concent 33, Red Cell Distribution Width 13.4, Platelet Count 184, Mean Platelet Volume 11.2, Immature Granulocyte % (Auto) 0, Neutrophils (%) (Auto) 68, Lymphocytes (%) (Auto) 21, Monocytes (%) (Auto) 10, Eosinophils (%) (Auto) 1, Basophils (%) (Auto) 0, Neutrophils # (Auto) 6.3, Lymphocytes # (Auto) 2.0, Monocytes # (Auto) 0.9, Eosinophils # (Auto) 0.1, Basophils # (Auto) 0.0, Immature Granulocyte # (Auto) 0.0, Sodium Level 135, Potassium Level 3.8, Chl oride Level 106, Carbon Dioxide Level 22, Anion Gap 7, Blood Urea Nitrogen 7, Creatinine 0.85, Estimat Glomerular Filtration Rate 107, BUN/Creatinine Ratio 8, Glucose Level 117H, Calcium Level 8.2L Microbiology 01/17/22 Gram Stain, Resulted Pending 01/17/22 Anaerobic Culture, Resulted Pending 01/17/22 Wound Culture - Preliminary, Resulted No growth 01/15/22 Urine Culture - Final, Complete Escherichia coli Strep anginosus Assessment/Plan Assessment/Plan (1) Vesicocutaneous fistula Status: Acute Assessment & Plan: Morales catheter placed, on Zosyn day 3, urine culture with E coli and strep anginosus. I and D done 01/17, cultures pending, appreciate Surgery management/recommendations. (2) Intra-abdominal abscess Status: Acute Assessment & Plan: Zosyn (3) Abdominal wall abscess Status: Acute (4) DVT prophylaxis Status: Acute Assessment & Plan: Enoxaparin ZABRINA DONALD MD Jan 18, 2022 10:09
[2022-01-18 11:09] VITALS: BP 103/63
[2022-01-18] MEDS: ENOXAPARIN 40 MG/0.4 ML (LOVENOX) SYR SQ SCH (13:50)
[2022-01-18 15:23] VITALS: BP 105/68
[2022-01-18 19:04] VITALS: BP 110/67
[2022-01-19] VITALS (7 sets, daily range): BP systolic 103–127; BP diastolic 65–83
[2022-01-19] MEDS: LACTATED RINGERS 1,000 ML IV SCH ×3 (00:09→18:43)
[2022-01-19] MEDS: NICOTINE 2 MG LOZENGE (COMMIT) MM PRN ×4 (04:46→19:06)
[2022-01-19] MEDS: HYDROcodone/APAP 5 MG/325 MG (LORTAB) TAB PO PRN ×3 (04:46→19:06)
[2022-01-19] MEDS: PIPERACILLIN SODIUM/TAZOBACTAM 4.5 GM in NS (IVPB) 100 ML IV SCH ×3 (04:46→21:20)
[2022-01-19 05:33] LABS: BASOPHILS % (AUTO) 0 % (0-10); EOSINOPHILS # (AUTO) 0.2 10^3/uL (0.0-0.3); EOSINOPHILS % (AUTO) 2 % (0-10); HEMATOCRIT 46 % (40-54); HEMOGLOBIN 15.2 g/dL (13.3-17.7); LYMPHOCYTES # (AUTO) 2.2 10^3/uL (1.0-4.0); LYMPHOCYTES % (AUTO) 32 % (12-44); MEAN CORPUSCULAR HEMOGLOBIN 31 pg (25-34); MEAN CORPUSCULAR HGB CONC 33 g/dL (32-36); MEAN CORPUSCULAR VOLUME 92 fL (80-99); MEAN PLATELET VOLUME 11.3 fL (9.0-12.2); MONOCYTES # (AUTO) 0.7 10^3/uL (0.0-1.0); MONOCYTES % (AUTO) 11 % (0-12); NEUTROPHILS # (AUTO) 3.7 10^3/uL (1.8-7.8); NEUTROPHILS % (AUTO) 55 % (42-75); PLATELET COUNT 210 10^3/uL (130-400); WHITE BLOOD COUNT 6.8 10^3/uL (4.3-11.0)
[2022-01-19 06:00] LABS: CALCIUM 8.5 MG/DL (8.5-10.1); CREATININE SERUM 0.79 MG/DL (0.60-1.30); POTASSIUM 3.9 MMOL/L (3.6-5.0)
--- NOTE | 2022-01-19 07:05 | Progress Note - Surgery ---
MAHSA RIVERA 01/19/22 0705: Subjective Date Seen by a Provider: Jan 19, 2022 Time Seen by a Provider: 06:37 Subjective/Events-last exam Pt reports that his right groin is less painful than it was yesterday. Pt believes erythema in right groin is improving. States that there is still a red/purulent discharge from the incision. He only had 1 bladder spasm yesterday that caused an increase in discharge from his incision. Denies any fever, chills, or abdominal pain. Review of Systems General: No Chills, No Night Sweats HEENT: No Head Aches, No Visual Changes Pulmonary: No Dyspnea, No Cough Cardiovascular: No: Chest Pain, Palpitations Gastrointestinal: No: Nausea, Vomiting, Abdominal Pain Genitourinary: Other (rare bladder spasms) Musculoskeletal: No: neck pain, back pain Neurological: No: Weakness, Numbness Objective Exam Vital Signs Date Time Temp Pulse Resp B/P (MAP) Pulse Ox O2 Delivery O2 Flow Rate FiO2 01/19/22 04:48 36.3 78 18 113/67 (82) 96 Room Air 01/19/22 00:08 36.6 74 18 107/65 (79) 96 01/18/22 20:00 Room Air 01/18/22 19:04 36.8 70 20 110/67 (81) 96 Room Air 01/18/22 15:23 36.8 73 18 105/68 (80) 94 Room Air 01/18/22 11:09 36.4 74 18 103/63 (76) 94 Room Air 01/18/22 08:00 Room Air 01/18/22 07:46 36.6 84 18 99/59 (72) 93 Room Air I & O 01/19/22 06:59 Intake Total 2410 ml Output Total 2910 ml Balance -500 ml Capillary Refill : Less Than 3 Seconds General Appearance: No Apparent Distress, WD/WN HEENT: PERRL/EOMI; No Photophobia Neck: Non Tender, Supple Respiratory: Chest Non Tender, No Accessory Muscle Use, No Respiratory Distress Cardiovascular: Regular Rate, Rhythm, No JVD, Normal Peripheral Pulses Gastrointestinal: soft, tenderness (Right groin with some swelling and improving erythema approximately 1 x 4 cm in diameter, minimal tenderness, center has 2.5cm incision from I&D, draining a light red/purulent thin fluid, outer areas are firm, seem about the same as yesterday) Extremity: Non Tender, No Calf Tenderness Neurologic/Psychiatric: Alert, Oriented x3, Normal Mood/Affect Skin: Normal Color, Warm/Dry, Erythema (Minimal right groin) Lymphatic: No Adenopathy (cervical) Results Lab Laboratory Tests 01/18/22 09:07: White Blood Count 9.3, Red Blood Count 4.85, Hemoglobin 15.1, Hematocrit 46, Mean Corpuscular Volume 94, Mean Corpuscular Hemoglobin 31, Mean Corpuscular Hemoglobin Concent 33, Red Cell Distribution Width 13.4, Platelet Count 184, Mean Platelet Volume 11.2, Immature Granulocyte % (Auto) 0, Neutrophils (%) (Auto) 68, Lymphocytes (%) (Auto) 21, Monocytes (%) (Auto) 10, Eosinophils (%) (Auto) 1, Basophils (%) (Auto) 0, Neutrophils # (Auto) 6.3, Lymphocytes # (Auto) 2.0, Monocytes # (Auto) 0.9, Eosinophils # (Auto) 0.1, Basophils # (Auto) 0.0, Immature Granulocyte # (Auto) 0.0, Sodium Level 135, Potassium Level 3.8, C hloride Level 106, Carbon Dioxide Level 22, Anion Gap 7, Blood Urea Nitrogen 7, Creatinine 0.85, Estimat Glomerular Filtration Rate 107, BUN/Creatinine Ratio 8, Glucose Level 117H, Calcium Level 8.2L 01/19/22 05:20: White Blood Count 6.8, Red Blood Count 4.98, Hemoglobin 15.2, Hematocrit 46, Mean Corpuscular Volume 92, Mean Corpuscular Hemoglobin 31, Mean Corpuscular Hemoglobin Concent 33, Red Cell Distribution Width 13.3, Platelet Count 210, Mean Platelet Volume 11.3, Immature Granulocyte % (Auto) 0, Neutrophils (%) (Auto) 55, Lymphocytes (%) (Auto) 32, Monocytes (%) (Auto) 11, Eosinophils (%) (Auto) 2, Basophils (%) (Auto) 0, Neutrophils # (Auto) 3.7, Lymphocytes # (Auto) 2.2, Monocytes # (Auto) 0.7, Eosinophils # (Auto) 0.2, Basophils # (Auto) 0.0, Immature Granulocyte # (Auto) 0.0, Sodium Level 139, Potassium Level 3.9, Chloride Level 109H, Carbon Dioxide Level 19L, Anion Gap 11, Blood Urea Nitrogen 6L, Creatinine 0.79, Estimat Glomerular Filtration Rate 109, BUN/Creatinine Ratio 8, Glucose Level 93, Calcium Level 8.5 Microbiology 01/17/22 Gram Stain - Final, Resulted 01/17/22 Anaerobic Culture, Resulted Pending 01/17/22 Wound Culture - Preliminary, Resulted No growth 01/15/22 Urine Culture - Final, Complete Escherichia coli Strep anginosus Assessment/Plan Assessment/Plan Assessment/Plan Right groin cellulitis 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 Morales catheter in place to keep the bladder decompressed. Urine culture grew >100k/mL gram negative rods. Continue Zosyn. Area now has a light red/purulent discharge. Culture of discharge taken, showed rare strep anginosus. Patient also understands that he may need urological services for cystoscopy. I&D done 01/17, Purulent material that was slightly thin proceeded out of the wound, still having a red/purulent discharge w/ palpitation around incision site, continue to monitor wound and change dressings as needed. May need further surgical intervention as well. Nicotine lozenge due to patient being a smoker. Continue Lovenox for DVT prophylaxis FABI EDWARDS DO 01/19/22 1526: Subjective Subjective/Events-last exam Right groin feeling a little better. Still with drainage thin/purulent. Erythema almost resolved. Having bladder spasms. Denies n/v fever sweats chills shortness of breath or chest pain. Objective Exam General Appearance: No Apparent Distress, Anxious HEENT: Normal ENT Inspection Neck: Non Tender, Supple Respiratory: Chest Non Tender, No Accessory Muscle Use, No Respiratory Distress Cardiovascular: Regular Rate, Rhythm, No JVD Gastrointestinal: soft, tenderness (Right groin with some swelling and improving erythema approximately 1 x 4 cm in diameter, minimal tenderness, center has 2.5cm incision from I&D, draining a light red/purulent thin fluid, outer areas are less induration) Extremity: Non Tender, No Calf Tenderness Neurologic/Psychiatric: Alert, Oriented x3, Normal Mood/Affect Skin: Normal Color, Warm/Dry, Erythema (Minimal almost completely resolved) Lymphatic: No Adenopathy (cervical) Assessment/Plan Assessment/Plan Assessment/Plan Right groin cellulitis 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 Morales catheter in place to keep the bladder decompressed. Urine culture grew >100k/mL gram negative rods. Continue Zosyn. Area now has a light red/purulent discharge. Culture of discharge taken, showed rare strep anginosus. Patient also understands that he may need urological services for cystoscopy. I&D done 01/17, Purulent material that was slightly thin proceeded out of the wound, still having a red/purulent discharge w/ palpitation around incision site, continue to monitor wound and change dressings as needed. May need further surgical intervention as well. Nicotine lozenge due to patient being a smoker. Continue Lovenox for DVT prophylaxis Supervisory-Addendum Brief Verification & Attestation Participated in pt care: history, MDM, physical Personally performed: exam, history, MDM, supervision of care Care discussed with: Medical Student Procedures: n/a Results interpretation: Verified all documentation Verification and Attestation of Medical Student E/M Service A medical student performed and documented this service in my presence. I reviewed and verified all information documented by the medical student and made modifications to such information, when appropriate. I personally performed the physical exam and medical decision making. Fabi Edwards Jan 19, 2022,15:26 MAHSA RIVERA Jan 19, 2022 07:05 FABI EDWARDS DO Jan 19, 2022 15:26
--- NOTE | 2022-01-19 10:13 | Progress Note ---
Subjective Subjective/Events-last exam States he is continuing to feel better, is hoping he can get morse out soon. Objective Exam Last Set of Vital Signs Vital Signs Date Time Temp Pulse Resp B/P (MAP) Pulse Ox O2 Delivery O2 Flow Rate FiO2 01/19/22 08:00 Room Air 01/19/22 07:13 36.2 77 18 103/77 (86) 96 Capillary Refill : Less Than 3 Seconds I&O Intake and Output 01/18/22 23:59 Intake Total 2410 ml Output Total 2150 ml Balance 260 ml Intake Oral 2410 ml Output Urine Total 2150 ml # Bowel Movements 1 General: Alert, No Acute Distress Lungs: Clear to Auscultation, Normal Air Movement Heart: Regular Rate, No Murmurs Abdomen: Normal Bowel Sounds, Soft, Other (dressing in place right lower with serosanguinous drainage on pad) Extremities: No Edema Neuro: Normal Speech Psych/Mental Status: Mood NL Results/Procedures Lab Laboratory Tests 01/19/22 05:20: White Blood Count 6.8, Red Blood Count 4.98, Hemoglobin 15.2, Hematocrit 46, Mean Corpuscular Volume 92, Mean Corpuscular Hemoglobin 31, Mean Corpuscular Hemoglobin Concent 33, Red Cell Distribution Width 13.3, Platelet Count 210, Mean Platelet Volume 11.3, Immature Granulocyte % (Auto) 0, Neutrophils (%) (Auto) 55, Lymphocytes (%) (Auto) 32, Monocytes (%) (Auto) 11, Eosinophils (%) (Auto) 2, Basophils (%) (Auto) 0, Neutrophils # (Auto) 3.7, Lymphocytes # (Auto) 2.2, Monocytes # (Auto) 0.7, Eosinophils # (Auto) 0.2, Basophils # (Auto) 0.0, Immature Granulocyte # (Auto) 0.0, Sodium Level 139, Potassium Level 3.9, Chloride Level 109H, Carbon Dioxide Level 19L, Anion Gap 11, Blood Urea Nitrogen 6L, Creatinine 0.79, Estimat Glomerular Filtration Rate 109, BUN/Creatinine Ratio 8, Glucose Level 93, Calcium Level 8.5 Microbiology 01/17/22 Gram Stain - Final, Resulted 01/17/22 Anaerobic Culture, Resulted Pending 01/17/22 Wound Culture - Preliminary, Resulted No growth 01/15/22 Urine Culture - Final, Complete Escherichia coli Strep anginosus Assessment/Plan Assessment/Plan (1) Vesicocutaneous fistula Status: Acute Assessment & Plan: Morse catheter placed, on Zosyn day 3, urine culture with E coli and strep anginosus. I and D done 01/17, cultures pending, appreciate Surgery management/recommendations. (2) Intra-abdominal abscess Status: Acute Assessment & Plan: Zosyn (3) Abdominal wall abscess Status: Acute (4) DVT prophylaxis Status: Acute Assessment & Plan: Enoxaparin ZABRINA DONALD MD Jan 19, 2022 10:12
[2022-01-19] MEDS: ENOXAPARIN 40 MG/0.4 ML (LOVENOX) SYR SQ SCH (12:46)
[2022-01-20] MEDS: HYDROcodone/APAP 5 MG/325 MG (LORTAB) TAB PO PRN ×5 (00:04→22:32)
[2022-01-20] MEDS: NICOTINE 2 MG LOZENGE (COMMIT) MM PRN ×5 (00:04→22:32)
[2022-01-20 04:04] VITALS: BP 100/57
--- NOTE | 2022-01-20 07:11 | Progress Note ---
Subjective Subjective/Events-last exam Afebrile, states he is feeling fairly well, pain is controlled. Objective Exam Last Set of Vital Signs Vital Signs Date Time Temp Pulse Resp B/P (MAP) Pulse Ox O2 Delivery O2 Flow Rate FiO2 01/20/22 06:03 36.6 01/20/22 04:04 77 18 100/57 (71) 92 Room Air Capillary Refill : Less Than 3 Seconds I&O Intake and Output 01/20/22 00:00 Intake Total 760 ml Output Total 3060 ml Balance -2300 ml Intake Oral 760 ml Output Urine Total 3060 ml # Bowel Movements 1 General: Alert, No Acute Distress Lungs: Clear to Auscultation, Normal Air Movement Heart: Regular Rate, No Murmurs Abdomen: Normal Bowel Sounds, Soft, Other (right lower quadrant packng in place with small amount of erythema surrounding and serosanguinous drainage on pad) Neuro: Normal Speech Psych/Mental Status: Mood NL Results/Procedures Lab Laboratory Tests 01/19/22 14:32: Glucometer 128H Microbiology 01/17/22 Gram Stain - Final, Resulted 01/17/22 Anaerobic Culture - Preliminary, Resulted Culture In Progress 01/17/22 Wound Culture - Preliminary, Resulted No growth 01/15/22 Urine Culture - Final, Complete Escherichia coli Strep anginosus Assessment/Plan Assessment/Plan (1) Vesicocutaneous fistula Status: Acute Assessment & Plan: Morales catheter placed, completed 5 days of Zosyn, urine culture with E coli and strep anginosus. I and D done 01/17, cultures pending, appreciate Surgery management/recommendations. (2) Intra-abdominal abscess Status: Acute Assessment & Plan: Zosyn (3) Abdominal wall abscess Status: Acute (4) DVT prophylaxis Status: Acute Assessment & Plan: Enoxaparin ZABRINA DONALD MD Jan 20, 2022 07:11
--- NOTE | 2022-01-20 07:12 | Progress Note - Surgery ---
MAHSA RIVERA 01/20/22 0712: Subjective Date Seen by a Provider: Jan 20, 2022 Time Seen by a Provider: 06:53 Subjective/Events-last exam Pt reports that he is doing well this morning. Endorses having minimal pain in right groin this morning. States that he had to have his catheter changed yesterday because it was leaking. He had a few bladder spasms after it was changed but has not had any since. Pt says that he is having less discharge from his incision site. Denies any fevers, chills, chest pains, or SOB. When asked he said he does not having any other concerns. Review of Systems General: No Chills, No Night Sweats, No Other (fever) HEENT: No Head Aches, No Visual Changes Pulmonary: No Dyspnea, No Cough Cardiovascular: No: Chest Pain, Palpitations Gastrointestinal: No: Nausea, Vomiting, Abdominal Pain Musculoskeletal: No: neck pain, back pain Neurological: No: Weakness, Numbness Objective Exam Vital Signs Date Time Temp Pulse Resp B/P (MAP) Pulse Ox O2 Delivery O2 Flow Rate FiO2 01/20/22 06:03 36.6 01/20/22 04:04 36.6 77 18 100/57 (71) 92 Room Air 01/20/22 00:34 36.6 01/19/22 23:42 36.6 80 16 105/67 (80) 95 Room Air 01/19/22 20:00 Room Air 01/19/22 19:36 36.0 01/19/22 19:14 36.4 66 18 127/83 (98) 96 Room Air 01/19/22 16:00 36.0 73 18 107/76 (86) 95 Room Air 01/19/22 11:11 36.3 66 18 120/82 (95) 94 Room Air 01/19/22 08:00 Room Air 01/19/22 07:13 36.2 77 18 103/77 (86) 96 Room Air I & O 01/20/22 07:00 Intake Total 1060 ml Output Total 2200 ml Balance -1140 ml Capillary Refill : Less Than 3 Seconds General Appearance: No Apparent Distress, WD/WN Neck: Non Tender, Supple Respiratory: Chest Non Tender, Lungs Clear, Normal Breath Sounds, No Accessory Muscle Use, No Respiratory Distress Cardiovascular: Regular Rate, Rhythm, No JVD, Normal Peripheral Pulses Gastrointestinal: soft, tenderness (Right groin with some swelling and minimal to no erythema approximately 1 x 4 cm in diameter, minimal tenderness, center has 2.5cm incision from I&D, draining a light red/purulent thin fluid decreased from yesterday, outer areas are less induration) Extremity: Non Tender, No Calf Tenderness, No Pedal Edema Neurologic/Psychiatric: Alert, Oriented x3, Normal Mood/Affect Skin: Normal Color, Warm/Dry Lymphatic: No Adenopathy (cervical) Results Lab Laboratory Tests 01/19/22 14:32: Glucometer 128H Microbiology 01/17/22 Gram Stain - Final, Resulted 01/17/22 Anaerobic Culture - Preliminary, Resulted Culture In Progress 01/17/22 Wound Culture - Preliminary, Resulted No growth 01/15/22 Urine Culture - Final, Complete Escherichia coli Strep anginosus Assessment/Plan Assessment/Plan Assessment/Plan Right groin cellulitis 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 Morales catheter in place to keep the bladder decompressed. Urine culture grew >100k/mL gram negative rods. On last day of Zosyn. Area now has a decreasing amount of light red/purulent discharge. Culture of discharge taken, showed rare strep anginosus. Patient also understands that he may need urological services for cystoscopy. I&D done 01/17, Purulent material that was slightly thin proceeded out of the wound, Improving amount of red/purulent discharge w/ palpitation around incision site, continue to monitor wound and change dressings as needed. May need further surgical intervention as well. Nicotine lozenge due to patient being a smoker. Continue Lovenox for DVT prophylaxis On regular diet FABI EDWARDS DO 01/20/22 0838: Subjective Subjective/Events-last exam Minimal pain to right groin. Less spasm since catheter changed. Still with drainage from right groin. Denies n/v fever sweats chills shortness of breath or chest pain. Objective Exam General Appearance: No Apparent Distress, WD/WN HEENT: PERRL/EOMI, Normal ENT Inspection Neck: Non Tender, Supple Respiratory: Chest Non Tender, No Accessory Muscle Use, No Respiratory Distress Cardiovascular: Regular Rate, Rhythm, No JVD Gastrointestinal: soft, tenderness (Right groin with some swelling and minimal to no erythema approximately 1 x 4 cm in diameter, minimal tenderness, center has 2.5cm incision from I&D, draining a light red/purulent thin fluid , slight increase in induration) Extremity: Non Tender, No Calf Tenderness Neurologic/Psychiatric: Alert, Oriented x3 Skin: Normal Color, Warm/Dry Lymphatic: No Adenopathy (cervical) Assessment/Plan Assessment/Plan Assessment/Plan Right groin cellulitis 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 Morales catheter in place to keep the bladder decompressed. Urine culture grew >100k/mL gram negative rods. On last day of Zosyn. Area now has a decreasing amount of light red/purulent discharge. Culture of discharge taken, showed rare strep anginosus. Patient also understands that he may need urological services for cystoscopy. I&D done 01/17, Purulent material that was slightly thin proceeded out of the wound, Improving amount of red/purulent discharge w/ palpitation around incision site, continue to monitor wound and change dressings as needed. Increased induration today will get ct pelvis to further evaluate. May need further surgical intervention as well. Nicotine lozenge due to patient being a smoker. Continue Lovenox for DVT prophylaxis NPO Supervisory-Addendum Brief Verification & Attestation Participated in pt care: history, MDM, physical Personally performed: exam, history, MDM, supervision of care Care discussed with: Medical Student Procedures: n/a Results interpretation: Verified all documentation Verification and Attestation of Medical Student E/M Service A medical student performed and documented this service in my presence. I reviewed and verified all information documented by the medical student and made modifications to such information, when appropriate. I personally performed the physical exam and medical decision making. Fabi Edwards, Jan 20, 2022,08:38 MAHSA RIVERA Jan 20, 2022 07:12 FABI EDWARDS DO Jan 20, 2022 08:38
[2022-01-20 07:30] VITALS: BP 106/70
[2022-01-20] MEDS: LACTATED RINGERS 1,000 ML IV SCH (08:14)
--- NOTE | 2022-01-20 11:05 | Diagnostic Imaging Report ---
INDICATION: Vesicocutaneous fistula. TECHNIQUE: Precontrast axial imaging through the pelvis was performed. Next, 250 mL of Omnipaque contrast mixed with water was injected into the urinary bladder via the patient's Morales catheter. Axial imaging through the pelvis was then performed. COMPARISON: Correlation is made with the recent CT study from 01/15/2022. FINDINGS: Precontrast images again demonstrate inflammatory changes in the right lower quadrant abdominal wall with ill-defined fluid as well as small gas bubbles. This does extend to the bladder dome on the right side where there is wall thickening and tethering. Contrast images demonstrate contrast opacifying a vesicocutaneous fistula in the right lower quadrant extending to the skin surface. A fistula arises from the right bladder dome. No other abnormality is seen. The bowel loops are unremarkable. No free fluid is detected. IMPRESSION: Right lower quadrant vesicocutaneous fistula, as described. Dictated by: Dictated on workstation # [id number]
[2022-01-20 11:34] VITALS: BP 103/59
[2022-01-20] MEDS: ENOXAPARIN 40 MG/0.4 ML (LOVENOX) SYR SQ SCH (14:15)
[2022-01-20 16:04] VITALS: BP 122/85
[2022-01-20] MEDS: AUGMENTIN 875 MG TAB (AMOXICILLIN/CLAVULANATE) PO SCH (17:11)
[2022-01-20 19:52] VITALS: BP 125/85
[2022-01-21] VITALS: BP 116/75
[2022-01-21 04:13] VITALS: BP 124/79
[2022-01-21] MEDS: HYDROcodone/APAP 5 MG/325 MG (LORTAB) TAB PO PRN ×2 (04:15→09:52)
[2022-01-21] MEDS: NICOTINE 2 MG LOZENGE (COMMIT) MM PRN ×2 (04:16→09:52)
[2022-01-21 06:11] LABS: HEMATOCRIT 47 % (40-54); HEMOGLOBIN 15.6 g/dL (13.3-17.7); MEAN CORPUSCULAR HEMOGLOBIN 31 pg (25-34); MEAN CORPUSCULAR HGB CONC 33 g/dL (32-36); MEAN CORPUSCULAR VOLUME 93 fL (80-99); MEAN PLATELET VOLUME 10.8 fL (9.0-12.2); PLATELET COUNT 246 10^3/uL (130-400); WHITE BLOOD COUNT 5.6 10^3/uL (4.3-11.0)
[2022-01-21 06:36] LABS: ALBUMIN 3.2 GM/DL (3.2-4.5); BILIRUBIN,TOTAL 0.3 MG/DL (0.1-1.0); CALCIUM 8.7 MG/DL (8.5-10.1); CREATININE SERUM 0.8 MG/DL (0.60-1.30); POTASSIUM 3.8 MMOL/L (3.6-5.0); TOTAL PROTEIN 6.3 GM/DL (6.4-8.2)
--- NOTE | 2022-01-21 06:58 | Progress Note - Surgery ---
JENNIE JONES A MED STUDENT 01/21/22 0658: Subjective Date Seen by a Provider: Jan 21, 2022 Time Seen by a Provider: 07:00 Subjective/Events-last exam Pt lying in bed, awake this morning. Pt states his RLQ abdominal pain from incision is 1/10 with oral pain medication. Pt denies fever, chills, CP, palpitations, SOA, cough, N/V/D or bladder spasms. Pt states he is ready to get home today with home health wound care. Review of Systems General: No Chills, No Fatigue HEENT: No Head Aches, No Visual Changes Pulmonary: No Dyspnea, No Cough Cardiovascular: No: Chest Pain, Palpitations Gastrointestinal: Abdominal Pain; No: Nausea, Vomiting Genitourinary: No Dysuria, No Frequency Neurological: No: Weakness, Numbness Objective Exam Vital Signs Date Time Temp Pulse Resp B/P (MAP) Pulse Ox O2 Delivery O2 Flow Rate FiO2 01/21/22 04:13 36.6 77 18 124/79 (94) 93 Room Air 01/21/22 00:00 36.5 68 19 116/75 (89) 93 Room Air 01/20/22 20:20 Room Air 01/20/22 19:52 36.6 79 19 125/85 (98) 95 Room Air 01/20/22 16:04 36.7 74 18 122/85 (97) 94 Room Air 01/20/22 11:34 36.4 80 18 103/59 (74) 96 Room Air 01/20/22 08:00 95 Room Air 01/20/22 07:30 36.4 77 18 106/70 (82) 95 Room Air I & O 01/21/22 07:00 Intake Total 3000 ml Output Total 2750 ml Balance 250 ml Capillary Refill : Less Than 3 Seconds General Appearance: No Apparent Distress, WD/WN HEENT: PERRL/EOMI, Normal ENT Inspection Neck: Non Tender, Supple Respiratory: Chest Non Tender, Lungs Clear, No Accessory Muscle Use, No Respiratory Distress Cardiovascular: Regular Rate, Rhythm, No JVD Gastrointestinal: soft, tenderness (Right groin with no erythema approximately 1 x 4 cm in diameter, minimal tenderness, center has 2.5cm incision from I&D, draining a light red/purulent thin fluid , induration surrounding incision) Extremity: Non Tender, No Calf Tenderness, No Pedal Edema Neurologic/Psychiatric: Alert, Oriented x3 Skin: Normal Color, Warm/Dry Lymphatic: No Adenopathy (cervical) Results Lab Laboratory Tests 01/21/22 06:00: White Blood Count 5.6, Red Blood Count 5.09, Hemoglobin 15.6, Hematocrit 47, Mean Corpuscular Volume 93, Mean Corpuscular Hemoglobin 31, Mean Corpuscular Hemoglobin Concent 33, Red Cell Distribution Width 13.5, Platelet Count 246, Mean Platelet Volume 10.8, Sodium Level 142, Potassium Level 3.8, Chloride Level 109H, Carbon Dioxide Level 19L, Anion Gap 14, Blood Urea Nitrogen 10, Creatinine 0.80, Estimat Glomerular Filtration Rate 108, BUN/Creatinine Ratio 13, Glucose Level 103, Calcium Level 8.7, Corrected Calcium 9.3, Total Bilirubin 0.3, Aspartate Amino Transf (AST/SGOT) 21, Alanine Aminotransferase (ALT/SGPT) 20, Alkaline Phosphatase 58, Total Protein 6.3L, Albumin 3.2 Microbiology 01/17/22 Gram Stain - Final, Resulted 01/17/22 Anaerobic Culture - Preliminary, Resulted Anaerobic Gram Pos Cocci 01/17/22 Wound Culture - Preliminary, Resulted Strep anginosus 01/15/22 Urine Culture - Final, Complete Escherichia coli Strep anginosus Assessment/Plan Assessment/Plan Assessment/Plan Right groin cellulitis 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 Morales catheter in place to keep the bladder decompressed. Urine culture grew >100k/mL gram negative rods. On last day of Zosyn. Area now has a decreasing amount of light red/purulent discharge. Culture of discharge taken, showed rare strep anginosus. Patient also understands that he may need urological services for cystoscopy. I&D done 01/17, Purulent material that was slightly thin proceeded out of the wound, Improving amount of red/purulent discharge w/ palpation around incision site. Nicotine lozenge due to patient being a smoker. Discharge home today with home health wound care. FABI EDWARDS DO 01/21/22 1415: Subjective Subjective/Events-last exam Minimal discomfort right groin. Still with thin drainage from fistula. No bladder spasms. No new complaints. Denies n/v fever sweats chills shortness of breath or chest pain. Objective Exam General Appearance: No Apparent Distress, WD/WN HEENT: PERRL/EOMI, Normal ENT Inspection Neck: Non Tender, Supple Respiratory: Chest Non Tender, No Accessory Muscle Use, No Respiratory Distress Cardiovascular: Regular Rate, Rhythm, No JVD Gastrointestinal: soft, tenderness (Right groin with no erythema approximately 1 x 4 cm in diameter, minimal tenderness, center has 2.5cm incision from I&D, draining a light red/purulent thin fluid , induration surrounding incision less) Extremity: Non Tender, No Calf Tenderness Neurologic/Psychiatric: Alert, Oriented x3 Skin: Normal Color, Warm/Dry Lymphatic: No Adenopathy (cervical) Assessment/Plan Assessment/Plan Assessment/Plan Right groin cellulitis 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 Morales catheter in place to keep the bladder decompressed. Urine culture grew >100k/mL gram negative rods. On last day of Zosyn. Area now has a decreasing amount of light red/purulent discharge. Culture of discharge taken, showed rare strep anginosus. Patient also understands that he needs Urology follow up for vesicocutaneous fistula. I&D done 01/17, Purulent material that was slightly thin proceeded out of the wound, Improving amount of red/purulent discharge w/ palpation around incision site. Nicotine lozenge due to patient being a smoker. Discharge home today with home health wound care. Instructed needs to keep skin open with packing daily. Supervisory-Addendum Brief Verification & Attestation Participated in pt care: history, MDM, physical Personally performed: exam, history, MDM, supervision of care Care discussed with: Medical Student Procedures: n/a Results interpretation: Verified all documentation Verification and Attestation of Medical Student E/M Service A medical student performed and documented this service in my presence. I reviewed and verified all information documented by the medical student and made modifications to such information, when appropriate. I personally performed the physical exam and medical decision making. Fabi Edwards, Jan 21, 2022,14:14 JENNIE JONES MED STUDENT Jan 21, 2022 06:58 FABI EDWARDS DO Jan 21, 2022 14:15
[2022-01-21 07:28] VITALS: BP 126/84
[2022-01-21] MEDS: AUGMENTIN 875 MG TAB (AMOXICILLIN/CLAVULANATE) PO SCH (07:43)
[2022-01-21] MEDS ORDERED: AMOX1TAB12 PO (08:25)
[2022-01-21] MEDS ORDERED: ACHD5005 PO (08:25)
--- NOTE | 2022-01-21 10:51 | Discharge Summary ---
Discharge Summary Instructions for Patient Via [facility], Assessment/Instructions Follow up with primary doctor within a week of discharge. You need to have a CT cystogram in 2 weeks to determine if you need to see Urology for further management. Physician to follow Patient: SMILEY Discharge Diet for Home: Regular Diet Hospital Course Date of Admission: Jan 15, 2022 at 20:40 Admission Diagnosis : Family Physician/Provider: [place] Date of Discharge: 01/21/22 Discharge Diagnosis: See problem list Hospital Course: 51 yo male admitted with abscess of abdominal wall with CT findings concerning for vesiculocutaneous fistula, he had an I and D and IV antibiotics and local wound care, repeat CT on 01/20 showed persistent vesiculocutaneous fistula, so he was continued on antibiotics and with morse in place for another two weeks on discharge. Urology recommended a CT cystogram in 2 weeks and if fistula still present, will need follow up with Urology. Labs and Pending Lab Test: Laboratory Tests 01/21/22 06:00: White Blood Count 5.6, Red Blood Count 5.09, Hemoglobin 15.6, Hematocrit 47, Mean Corpuscular Volume 93, Mean Corpuscular Hemoglobin 31, Mean Corpuscular Hemoglobin Concent 33, Red Cell Distribution Width 13.5, Platelet Count 246, Madina n Platelet Volume 10.8, Sodium Level 142, Potassium Level 3.8, Chloride Level 109H, Carbon Dioxide Level 19L, Anion Gap 14, Blood Urea Nitrogen 10, Creatinine 0.80, Estimat Glomerular Filtration Rate 108, BUN/Creatinine Ratio 13, Glucose Level 103, Calcium Level 8.7, Corrected Calcium 9.3, Total Bilirubin 0.3, Aspartate Amino Transf (AST/SGOT) 21, Alanine Aminotransferase (ALT/SGPT) 20, Alkaline Phosphatase 58, Total Protein 6.3L, Albumin 3.2 Microbiology 01/17/22 Gram Stain - Final, Resulted 01/17/22 Anaerobic Culture - Preliminary, Resulted Anaerobic Gram Pos Cocci 01/17/22 Wound Culture - Preliminary, Resulted Strep anginosus 01/15/22 Urine Culture - Final, Complete Escherichia coli Strep anginosus Home Meds Active HYDROcodone/APAP 5 MG/325 MG TAB (Acetaminophen/Hydrocodone Bitart) 1 Tab Tab 1 Ea PO Q4H PRN Amox Tr-K Clv 875-125 mg Tab (Amoxicillin/Potassium Clav) 1 Each Tablet 875 Mg PO BID WITH MEALS Reported Ibuprofen 200 Mg Tablet 200 Mg PO Q8H PRN Tylenol Extra Strength (Acetaminophen) 500 Mg Tablet 1,000 Mg PO Q8H PRN Consulations General Surgery Patient Allergies: Coded Allergies: No Known Drug Allergies (Unverified , 05/18/21) Home Health Need/Face to Face Date of Face to Face: Jan 21, 2022 Clinical Findings: Wound infection, Non-healing wound I have seen Pt [id number]: Yes Discharged To: Home Diagnosis/Conditions: See problem list Problems/Diagnosis/Condition: (1) Vesicocutaneous fistula (2) Intra-abdominal abscess (3) Abdominal wall abscess Patient is Homebound due to: Pain w/ambulation Homebound Status Due to the above stated illness, injury or surgical procedure (medical condition or diagnosis) and associated clinical findings, the patient is homebound because of his/her inability to leave home except with aid of a supportive device and/or person AND leaving the home requires a considerable and taxing effort or is medically contraindicated. Pt req the following assistanc: Aid of another person Home Health Nursing Orders Home Health Services Order: Nursing Services, Wound Care-Eval/Treat Pack wound daily with iodoform gauze, cover with 4x4 gauze and ABD pad. Change pad prn saturation. Home Health Infusion Therapy Line Start Date: Jan 18, 2022 Certify Stmt I certify that this patient is under my care and that I, a nurse practitioner or a physician; a payroll assistant working with me, had a face to face encounter that - meets the physician face to face encounter requirements with this patient as dated. Discharge Physical Exam General: Alert, No Acute Distress Lungs: Clear to Auscultation, Normal Air Movement Heart: Regular Rate, No Murmurs Extremities: No Edema Neuro: Normal Speech Psych/Mental Status: Mood NL ZABRINA DONALD MD Jan 21, 2022 10:51
[2022-01-21 11:21] VITALS: BP 122/81
[2022-01-21 12:45] VITALS: BP 122/81
== END 2022-01-21 12:45 | disposition home health service (06) | DRG 674 ==
LOC: EDUNIT# 16:34 → ER 16:35 → 4TH 20:40
PROVIDERS: ADMIT Internal Medicine; ATTEND Family Medicine
PROC: 8E0ZXY6 Isolation (ICD-10-PCS; 2022-01-15)
PROC: 0Y950ZZ Drainage of Right Inguinal Region, Open Approach (ICD-10-PCS; principal; 2022-01-17)
DX: N32.2 Vesical fistula, not elsewhere classified (principal); L02.214 Cutaneous abscess of groin; L03.314 Cellulitis of groin; N39.0 Urinary tract infection, site not specified; N32.89 Other specified disorders of bladder; F17.210 Nicotine dependence, cigarettes, uncomplicated; K21.9 Gastro-esophageal reflux disease without esophagitis; F41.9 Anxiety disorder, unspecified; Z85.850 Personal history of malignant neoplasm of thyroid
CPT/HCPCS: 36415; 51702; 72192; 74177; 80048; 80053; 81000; 82947; 83690; 85025; 85027; 87070; 87075; 87076; 87077; 87088; 87185; 87186; 87205; 96365; 96375

== ENCOUNTER 2022-01-24 04:30 | Emergency (ER) | payer MEDICAID ==
[~2022-01-24 04:30] MED LIST changes: +AMOX1TAB12 PO; +IBUP-2473 PO
[2022-01-24 04:35] VITALS: BP 115/92
--- NOTE | 2022-01-24 04:50 | ED GU-Male ---
General Chief Complaint: Catheter/Drain/Tube Problems Stated Complaint: BLADDER SPASMS Nursing Triage Note: Pt arrives via EMS from home for c/o bladder spasms. Pt discharged from hospital stay two days ago with morse catheter placed by Dr. Edwards r/t fistula with unknown cause. Pt reports today when ambulating he had severe bladder spasms. Pt states he has no urologist at this time, but states he is supposed to see Dr. Brown Tuesday. Pt reports taking hydrocodone tonight for the pain. Source: patient, EMS, old records Exam Limitations: no limitations History of Present Illness Date Seen by Provider: Jan 24, 2022 Time Seen by Provider: 04:30 Initial Comments Patient to the ER by EMS from home with chief complaint of increased tempo bladder spasms tonight. Has been having bladder spasms ever since a Morse ca theter was placed about a week ago due to a abscess that was fistulizing to the urinary bladder. Dr. Edwards thought this would help by decompressing his bladder with healing the fistula open and there were going to repeat a CT in a week or 2. He was in the hospital and had the abscess lanced. He did take some hydrocodone for the pain but was unsuccessful in treating the spasms and when he woke up just prior to calling EMS his whole side was covered in urine that had drained out through his fistula. He is not on an antispasmodic. He has been having spasms ever since he was originally catheterized but tonight they are way worse. He would like the Morse catheter out. He does not have a urologist. He sees Abdirizak Benton for primary care. Patient presented originally with abdominal wall vesicocutaneous fistula. At time of discharge he was recommended to keep the Morse in for 2 weeks and then do a CT cystogram and follow-up with urology if still persistent. Allergies and Home Medications Allergies Coded Allergies: No Known Drug Allergies (Unverified , 05/18/21) Patient Home Medication List Home Medication List Reviewed: Yes Acetaminophen (Tylenol Extra Strength) 500 Mg Tablet, 1,000 MG PO Q8H PRN for PAIN-MILD (1-4), (Reported) Entered as Reported by: MARIELENA RIVERA on 05/26/21 1003 Amoxicillin/Potassium Clav (Amox Tr-K Clv 875-125 mg Tab) 1 Each Tablet, 875 MG PO BID WITH MEALS Prescribed by: ZABRINA DONALD on 01/21/22 0825 Hydrocodone Bit/Acetaminophen (HYDROcodone/APAP 5 MG/325 MG TAB) 1 Tab Tab, 1 EA PO Q4H PRN for PAIN-SEVERE (8-10) Prescribed by: ZABRINA DONALD on 01/21/22 0826 Ibuprofen (Ibuprofen) 200 Mg Tablet, 200 MG PO Q8H PRN for PAIN-MILD (1-4), (Reported) Entered as Reported by: AGUSTO CERNA on 01/18/22 0819 Review of Systems Review of Systems Constitutional: No chills, No fever EENTM: No ear discharge, No ear pain Respiratory: No cough, No short of breath Cardiovascular: No chest pain, No palpitations Gastrointestinal: abdominal pain (Right lower quadrant abdominal wall pain); No constipation, No diarrhea, No nausea Genitourinary: denies burning, denies discharge Musculoskeletal: No back pain, No joint pain Skin: other (No increased redness just mildly bloody urinary discharge from the fistula) All Other Systemes Reviewed Negative Unless Noted: Yes Past Gdxtqxp-Crwijf-Zweevg Hx Patient Social History Tobacco Use?: No Use of E-Cig and/or Vaping dev: No Immunizations Up To Date Tetanus Booster (TDap): Unknown First/Initial COVID19 Vaccinat: 2020 Second COVID19 Vaccination Bronson: 2020 Seasonal Allergies Seasonal Allergies: No Past Medical History Surgeries: Yes Abdominal, Appendectomy, Joint Replacement Respiratory: No Cardiac: No Neurological: No Genitourinary: Yes Kidney Stones Gastrointestinal: Yes Abdominal Hernia, Gastroesophageal Reflux Musculoskeletal: No Endocrine: No HEENT: No Loss of Vision: Denies Hearing Impairment: Denies Cancer: Yes Thyroid Psychosocial: Yes Anxiety Integumentary: No Family Medical History Heart Disease, Cancer, Diabetes, Stroke Physical Exam Vital Signs Vital Signs - First Documented 01/24/22 04:35 Temp 36.8 Pulse 98 Resp 18 B/P (MAP) 115/92 (100) Pulse Ox 97 O2 Delivery Room Air Capillary Refill : Less Than 3 Seconds Height, Weight, BMI Height: '" Weight: lbs. oz. kg; 24.30 BMI Method: General Appearance: WD/WN, no apparent distress HEENT: PERRL/EOMI, pharynx normal Neck: full range of motion, normal inspection Cardiovascular: normal peripheral pulses, regular rate, rhythm Respiratory: lungs clear, normal breath sounds, no respiratory distress, no accessory muscle use Gastrointestinal: normal bowel sounds, non tender, soft, no organomegaly Extremities: non-tender, normal inspection, normal capillary refill Neurologic/Psychiatric: alert, normal mood/affect, oriented x 3 Skin: normal color, warm/dry Progress/Results/Core Measures Suspected Sepsis SIRS Temperature: Pulse: 98 Respiratory Rate: 18 Laboratory Tests 01/24/22 04:50: White Blood Count 12.2H Blood Pressure 115 /92 Mean: 100 Laboratory Tests 01/24/22 04:50: Creatinine 0.84, Platelet Count 335 Results/Orders Lab Results Laboratory Tests Test 01/24/22 04:50 Range/Units White Blood Count 12.2 H 4.3-11.0 10^3/uL Red Blood Count 5.20 4.30-5.52 10^6/uL Hemoglobin 16.3 13.3-17.7 g/dL Hematocrit 49 40-54 % Mean Corpuscular Volume 93 80-99 fL Mean Corpuscular Hemoglobin 31 25-34 pg Mean Corpuscular Hemoglobin Concent 34 32-36 g/dL Red Cell Distribution Width 13.7 10.0-14.5 % Platelet Count 335 130-400 10^3/uL Mean Platelet Volume 10.7 9.0-12.2 fL Immature Granulocyte % (Auto) 0 % Neutrophils (%) (Auto) 68 42-75 % Lymphocytes (%) (Auto) 22 12-44 % Monocytes (%) (Auto) 8 0-12 % Eosinophils (%) (Auto) 1 0-10 % Basophils (%) (Auto) 0 0-10 % Neutrophils # (Auto) 8.3 H 1.8-7.8 10^3/uL Lymphocytes # (Auto) 2.7 1.0-4.0 10^3/uL Monocytes # (Auto) 1.0 0.0-1.0 10^3/uL Eosinophils # (Auto) 0.2 0.0-0.3 10^3/uL Basophils # (Auto) 0.0 0.0-0.1 10^3/uL Immature Granulocyte # (Auto) 0.0 0.0-0.1 10^3/uL Urine Color RED H Urine Clarity CLOUDY Urine pH 6.0 5-9 Urine Specific Rueter 1.025 H 1.016-1.022 Urine Protein 1+ H NEGATIVE Urine Glucose (UA) NEGATIVE NEGATIVE Urine Ketones NEGATIVE NEGATIVE Urine Nitrite NEGATIVE NEGATIVE Urine Bilirubin NEGATIVE NEGATIVE Urine Urobilinogen 0.2 < = 1.0 MG/DL Urine Leukocyte Esterase 2+ H NEGATIVE Urine RBC (Auto) 3+ H NEGATIVE Urine RBC >100 H /HPF Urine WBC 50-100 H /HPF Urine Squamous Epithelial Cells 0-2 /HPF Urine Crystals PRESENT H /LPF Urine Uric Acid Crystals LARGE H /LPF Urine Bacteria MODERATE H /HPF Urine Casts NONE /LPF Urine Mucus NEGATIVE /LPF Urine Culture Indicated YES Sodium Level 140 135-145 MMOL/L Potassium Level 4.0 3.6-5.0 MMOL/L Chloride Level 108 H 98-107 MMOL/L Carbon Dioxide Level 17 L 21-32 MMOL/L Anion Gap 15 H 5-14 MMOL/L Blood Urea Nitrogen 15 7-18 MG/DL Creatinine 0.84 0.60-1.30 MG/DL Estimat Glomerular Filtration Rate 107 BUN/Creatinine Ratio 18 Glucose Level 106 H 70-105 MG/DL Calcium Level 9.0 8.5-10.1 MG/DL My Orders Orders - ARMANI CARROLL Ua Culture If Indicated (01/24/22 04:44) Cbc With Automated Diff (01/24/22 04:44) Basic Metabolic Panel (01/24/22 04:44) Tamsulosin Capsule (Flomax Capsule) (01/24/22 05:00) Tolterodine La Capsule (Detrol La Capsul (01/24/22 05:00) Ed Iv/Invasive Line Start (01/24/22 04:58) Urine Culture (01/24/22 04:50) Ceftriaxone 1 Gm Pre-Mix (Rocephin 1 Gm (01/24/22 06:00) Medications Given in ED Current Medications Medications Dose Ordered Sig/Ezequiel Route Start Time Stop Time Status Last Admin Dose Admin Tamsulosin HCl 0.4 mg ONCE ONCE PO 01/24/22 05:00 01/24/22 05:01 DC 01/24/22 05:14 0.4 MG Tolterodine Tartrate 2 mg ONCE ONCE PO 01/24/22 05:00 01/24/22 05:01 DC 01/24/22 05:14 2 MG Vital Signs/I&O 01/24/22 04:35 Temp 36.8 Pulse 98 Resp 18 B/P (MAP) 115/92 (100) Pulse Ox 97 O2 Delivery Room Air Capillary Refill : Less Than 3 Seconds Blood Pressure Mean: 100 Progress Note #1: Time: 04:50 Progress Note Plan to take the Morse out per his wishes and put him on some Flomax and see how he tolerates having the Morse catheter out. Check some basic labs and urinalysis looking for signs of systemic infection. Continue antibiotics. Progress Note #2: Time: 05:57 Progress Note There isThe patient's pain is significantly relieved by having the Morse catheter removed. Amoxicillin was stopped against the E. coli that grew out in the urine and while the Augmentin that he is on may be sufficient we will put him on cefdinir for another week since he should be running out of antibiotics and he has a follow-up in 3 days with PCP. We will put him on Flomax for a week. He has already been able to urinate without difficulty. Return precautions discussed. Gram of Rocephin IV before he leaves. Departure Impression Primary Impression: Painful bladder spasm Additional Impressions: Bladder to skin fistula UTI (urinary tract infection) Qualified Codes: N30.01 - Acute cystitis with hematuria Disposition: HOME, SELF-CARE Condition: Stable Departure-Patient Inst. Decision time for Depature: 06:01 Referrals: [facility] (PCP/Family) Primary Care Physician Patient Instructions: Urinary Tract Infection, Adult (DC) Add. Discharge Instructions: Flomax 1 capsule at night for the next week. Return to the ER for intractable pain, inability to urinate or other worrisome symptoms. Keep your follow-up appointment in 3 days with your primary care provider and discuss appropriate management and work-up. Switch your antibiotic to cefdinir 1 capsule twice a day with food for the next 10 days. 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 All discharge instructions reviewed with patient and/or family. Voiced under standing. Scripts Tamsulosin HCl (Flomax) 0.4 Mg Cap 0.4 MG PO HS for 7 Days, #7 CAP 0 Refills Prov: ARMANI CARROLL 01/24/22 Cefdinir (Cefdinir) 300 Mg Capsule 300 MG PO BID for 10 Days, #20 CAP 0 Refills Prov: ARMANI CARROLL 01/24/22 Copy Copies To 1: CAREN SALDIVAR DO ARMANI CARROLL Jan 24, 2022 04:50
[2022-01-24] MEDS ORDERED: TAMSULOSIN 0.4 MG (FLOMAX) CAP PO ONE (05:00)
[2022-01-24] MEDS ORDERED: TOLTERODINE LA 2 MG (DETROL LA) CAP PO ONE (05:00)
[2022-01-24 05:03] LABS: BASOPHILS % (AUTO) 0 % (0-10); EOSINOPHILS # (AUTO) 0.2 10^3/uL (0.0-0.3); EOSINOPHILS % (AUTO) 1 % (0-10); HEMATOCRIT 49 % (40-54); HEMOGLOBIN 16.3 g/dL (13.3-17.7); LYMPHOCYTES # (AUTO) 2.7 10^3/uL (1.0-4.0); LYMPHOCYTES % (AUTO) 22 % (12-44); MEAN CORPUSCULAR HEMOGLOBIN 31 pg (25-34); MEAN CORPUSCULAR HGB CONC 34 g/dL (32-36); MEAN CORPUSCULAR VOLUME 93 fL (80-99); MEAN PLATELET VOLUME 10.7 fL (9.0-12.2); MONOCYTES % (AUTO) 8 % (0-12); NEUTROPHILS # (AUTO) 8.3 10^3/uL (1.8-7.8); NEUTROPHILS % (AUTO) 68 % (42-75); PLATELET COUNT 335 10^3/uL (130-400); WHITE BLOOD COUNT 12.2 10^3/uL (4.3-11.0)
[2022-01-24 05:06] LABS: BILIRUBIN,URINE NEGATIVE (NEGATIVE); CLARITY,URINE CLOUDY; COLOR,URINE RED; GLUCOSE, URINE (UA) NEGATIVE (NEGATIVE); KETONES,URINE NEGATIVE (NEGATIVE); LEUKOCYTE ESTERASE ,URINE 2+ (NEGATIVE); NITRITE,URINE NEGATIVE (NEGATIVE); PROTEIN,URINE 1+ (NEGATIVE)
[2022-01-24 05:17] LABS: CREATININE SERUM 0.84 MG/DL (0.60-1.30)
[2022-01-24 05:19] LABS: BACTERIA,URINE MODERATE /HPF; RBC,URINE >100 /HPF; SQUAMOUS EPITHELIAL CELL,UR 0-2 /HPF; WBC,URINE 50-100 /HPF
[2022-01-24 05:20] LABS: URIC ACID CRYSTALS,URINE LARGE /LPF
[2022-01-24] MEDS ORDERED: cefTRIAXone 1 GM PRE-MIX 50 ML IV ONE (06:00)
[2022-01-24] MEDS ORDERED: TMSL.4C PO (06:03)
[2022-01-24] MEDS ORDERED: CEFD300C3 PO (06:03)
== END 2022-01-24 06:18 | disposition home or self-care (01) ==
LOC: ER 04:30 → EDUNIT# 04:30 → ER 06:18
DX: N30.01 Acute cystitis with hematuria (principal); N32.2 Vesical fistula, not elsewhere classified; N32.89 Other specified disorders of bladder; Z96.0 Presence of urogenital implants
CPT/HCPCS: 36415; 80048; 81000; 85025; 87088

== ENCOUNTER 2022-06-13 11:18 | Emergency (ER) | payer MEDICAID ==
[~2022-06-13] VITALS: Ht 172.7 cm; Wt 79.0 kg
[~2022-06-13 11:18] MED LIST changes: +CEFD300C3 PO; +TMSL.4C PO
--- NOTE | 2022-06-13 12:07 | ED GU-Male ---
General Chief Complaint: - Reproductive Stated Complaint: CATHETER BLOCKAGE,S/P BLADDER SX Source: patient, other Exam Limitations: no limitations History of Present Illness Date Seen by Provider: Jun 13, 2022 Time Seen by Provider: 11:58 Initial Comments Patient is a 51-year-old male who presents to the emergency room by private v ehicle today chief complaint of feeling like his Morse catheter is "blocked". He is status post complex partial cystectomy with ventral hernia repair as well as right orchiectomy 6 days ago. I was contacted by the urology resident on- call Dr. Demetra Zamora ([phone]) her attending physician is Dr. Jimenez Easton ([phone]). She states that the patient contacted their services earlier this morning and instructed him to go to one of the [facility]. He went to [facility] and when they spoke with Dr. Easton he instructed them to just leave the catheter alone as he had had a little bit of drainage throughout the night. Patient continued to experience increasing bladder spasms and decided to come here. The urology resident states that she believes the catheter just needs to be exchanged. She stated there was no need to do a urinalysis at this time. The patient tells me that he was just put on metronidazole yesterday. He is experiencing no fevers, chills, nausea or vomiting. No drainage from around the urethra. He is currently on Levsin and oxybutynin and states that he has been taking it. No wound concerns today. He states he has an intense urge to urinate. On arrival we did deflate the Morse catheter balloon which in itself cause some discomfort. He did not have any spontaneous drainage of urine. We will obtain a bladder scan and then apply a little lidocaine jelly and replace the catheter. All other review of systems reviewed and negative except as stated Timing/Duration: this morning Severity/Quality: severe, cramping Location: suprapubic Radiation: none Activities at Onset: none Prior Genitourinary Problems: recent trauma (surgery 6d ago) Associated Symptoms: abdominal pain Allergies and Home Medications Allergies Coded Allergies: No Known Drug Allergies (Unverified , 05/18/21) Patient Home Medication List Home Medication List Reviewed: Yes Acetaminophen (Tylenol Extra Strength) 500 Mg Tablet, 1,000 MG PO Q8H PRN for PAIN-MILD (1-4), (Reported) Entered as Reported by: MARIELENA RIVERA on 05/26/21 1003 Amoxicillin/Potassium Clav (Amox Tr-K Clv 875-125 mg Tab) 1 Each Tablet, 875 MG PO BID WITH MEALS Prescribed by: ZABRINA DONALD on 01/21/22 0825 Cefdinir (Cefdinir) 300 Mg Capsule, 300 MG PO BID Prescribed by: ARMANI CARROLL on 01/24/22 0603 Hydrocodone Bit/Acetaminophen (HYDROcodone/APAP 5 MG/325 MG TAB) 1 Tab Tab, 1 EA PO Q4H PRN for PAIN-SEVERE (8-10) Prescribed by: ZABRINA DONALD on 01/21/22 0826 Ibuprofen (Ibuprofen) 200 Mg Tablet, 200 MG PO Q8H PRN for PAIN-MILD (1-4), (Reported) Entered as Reported by: AGUSTO CERNA on 01/18/22 0819 Tamsulosin HCl (Flomax) 0.4 Mg Cap, 0.4 MG PO HS Prescribed by: ARMANI CARROLL on 01/24/22 0603 Review of Systems Review of Systems Constitutional: see HPI EENTM: no symptoms reported Respiratory: no symptoms reported Cardiovascular: no symptoms reported Gastrointestinal: abdominal pain Genitourinary: urgency Musculoskeletal: no symptoms reported Skin: no symptoms reported All Other Systemes Reviewed Negative Unless Noted: Yes Past Kmumypk-Vjezyj-Wujzan Hx Immunizations Up To Date Tetanus Booster (TDap): Unknown First/Initial COVID19 Vaccinat: 2020 Second COVID19 Vaccination Bronson: 2020 Seasonal Allergies Seasonal Allergies: No Past Medical History Surgeries: Yes Abdominal, Appendectomy, Joint Replacement Respiratory: No Cardiac: No Neurological: No Genitourinary: Yes Kidney Stones Gastrointestinal: Yes Abdominal Hernia, Gastroesophageal Reflux Musculoskeletal: No Endocrine: No HEENT: No Loss of Vision: Denies Hearing Impairment: Denies Cancer: Yes Thyroid Psychosocial: Yes Anxiety Integumentary: No Family Medical History Heart Disease, Cancer, Diabetes, Stroke Physical Exam Vital Signs Vital Signs - First Documented 06/13/22 11:54 Temp 37.0 Pulse 118 Resp 20 B/P (MAP) 141/110 (120) Capillary Refill : Height, Weight, BMI Height: '" Weight: lbs. oz. kg; 24.30 BMI Method: General Appearance: WD/WN, moderate distress HEENT: PERRL/EOMI Cardiovascular: regular rate, rhythm Respiratory: lungs clear, normal breath sounds, no respiratory distress, no accessory muscle use Gastrointestinal: tenderness (Voluntary guarding in the suprapubic region due to postoperative pain. Normal bowel sounds. Slightly distended.) Male: normal genitalia Extremities: normal range of motion, normal inspection Neurologic/Psychiatric: alert, normal mood/affect, oriented x 3, other (Anxious) Skin: normal color, warm/dry, other (Healing suture sites over the lower abdomen with dressings intact and a KAYLA drain.) Progress/Results/Core Measures Suspected Sepsis SIRS Temperature: Pulse: Respiratory Rate: Blood Pressure / Mean: Results/Orders My Orders Orders - AUDREY ZHONG MD Lidocaine 2% (Urojet) (Xylocaine Urojet) (06/13/22 12:15) Bladder Scan (06/13/22 12:02) Medications Given in ED Current Medications Medications Dose Ordered Sig/Ezequiel Route Start Time Stop Time Status Last Admin Dose Admin Lidocaine HCl 10 ml ONCE ONCE TOP 06/13/22 12:15 06/13/22 12:16 DC 06/13/22 12:45 10 ML Vital Signs/I&O 06/13/22 11:54 Temp 37.0 Pulse 118 Resp 20 B/P (MAP) 141/110 (120) Capillary Refill : Progress Note #1: Time: 12:55 Progress Note Patient's Morse catheter was removed, he had spontaneous passage of urine at that time. He had complete relief of his discomfort. He is also voided a small amount since the removal of his catheter. Urojet was placed. We will put in a slightly smaller catheter (16fr) to see if this is more comfortable for the patient. Progress Note #2: Time: 13:06 Progress Note 16fr morse placed. The patient's is comfortable. Still pain relieved. Encouraged to keep his follow up with his urologist at . REturn precautions provided. Departure Impression Primary Impression: Morse catheter problem Qualified Codes: T83.9XXA - Unspecified complication of genitourinary prosthetic device, implant and graft, initial encounter Disposition: 01 HOME, SELF-CARE Condition: Improved Departure-Patient Inst. Decision time for Depature: 13:07 Referrals: [facility] [place] (PCP/Family) Primary Care Physician Patient Instructions: How to Care for Your Morse Catheter, Male Add. Discharge Instructions: Continue your medications as prescribed by your [facility] urologist, Dr. Easton. If you have any further problems with the catheter not draining, fever, abdominal pain, nausea vomiting please return to the emergency department for reevaluation. AUDREY ZHONG MD Jun 13, 2022 12:07
[2022-06-13] MEDS ORDERED: LIDOCAINE UROJET 2% GEL 10 ML PKG TOP ONE (12:15)
[2022-06-13 13:16] VITALS: BP 130/94
== END 2022-06-13 13:16 | disposition home or self-care (01) ==
LOC: EDUNIT# 11:18 → ER 11:19
DX: T83.098A Other mechanical complication of other urinary catheter, initial encounter (principal); Z90.79 Acquired absence of other genital organ(s)
CPT/HCPCS: 51702